=== PATIENT | female | born 1935 | race Caucasian/White ===

== ENCOUNTER 2016-10-01 21:16 | Emergency (ER) | payer OTHER, MEDICAID ==
[~2016-10-01] VITALS: Ht 147.3 cm; Wt 61.2 kg
[2016-10-01 21:46] LABS: MEAN CORPUSCULAR HEMOGLOBIN 31.5 pg (27.0-33.0); MEAN CORPUSCULAR HGB CONC 35.5 g/dl (32.0-36.5); MEAN CORPUSCULAR VOLUME 88.6 fl (80.0-96.0); RED CELL DISTRIBUTION WIDTH 12.3 % (11.5-14.5); WHITE BLOOD COUNT 7.8 K/mm3 (4.0-10.0)
[2016-10-01] MEDS ORDERED: ASPIRIN 81 MG CHEW TABLET As Ordered ONE (21:55)
[2016-10-01 22:00] LABS: INR 1.03
[2016-10-01 22:09] LABS: ANION GAP 9 MEQ/L (8-16); BLOOD UREA NITROGEN 14 MG/DL (7-18); CALCIUM LEVEL 9.7 MG/DL (8.8-10.2); CARBON DIOXIDE LEVEL 30 MEQ/L (21-32); CHLORIDE LEVEL 99 MEQ/L (98-107); CREATININE FOR GFR 0.86 MG/DL (0.55-1.02); GLOMERULAR FILTRATION RATE > 60.0 (>32); GLUCOSE, FASTING 125 MG/DL (83-110); POTASSIUM SERUM 3.1 MEQ/L (3.5-5.1); SODIUM LEVEL 138 MEQ/L (136-145)
[2016-10-01] MEDS ORDERED: ISOVUE-370 76% 100ML VIAL (Q9967) As Ordered ONE (22:28)
--- NOTE | 2016-10-01 23:00 | REPUSA ---
CT angiogram of the chest Clinical statement: Chest pain and shortness of breath. Technique: Multiple axial CT images were obtained from the thoracic inlet through the upper abdomen a fter a bolus administration of nonionic intravenous contrast. Coronal and sagittal reconstructions we re also obtained. No comparison is available. Findings: The pulmonary arteries are well-opacified with contrast, with no intraluminal filling defec ts to suggest embolism. The thoracic aorta demonstrates moderate atherosclerosis with calcified and s oft tissue plaque. There is no evidence of aneurysm or dissection. Thyroid gland is within normal epps its. There is no thoracic lymphadenopathy. There are no pericardial or pleural effusions. The lungs a re clear. Limited imaging of the upper abdomen is unremarkable. There are no suspicious osseous lesio ns. Impression: Unremarkable CT examination of the chest. No evidence of pulmonary embolism. No acute int rapulmonary disease.
[2016-10-02] MEDS ORDERED: KETOROLAC 30 MG/ML VIAL (J1885) As Ordered ONE (00:01)
--- NOTE | 2016-10-02 01:42 | REP ---
Clinical: Acute chest pain . Comparison: 07/02/2007 Findings: The mediastinum and cardiac silhouette are stable and within normal limits for portable technique. The lung garcia are clear without acute consolidation, effusion, or pneumothorax. Skeletal structures are intact. Impression: Normal portable chest x-ray Signed by Leonard Tapia MD 10/02/2016 01:34 A
[2016-10-02] MEDS ORDERED: METOPROLOL TART 25 MG TABLET As Ordered ONE (02:04)
[2016-10-02] MEDS ORDERED: NITROGLYCERIN 2% OINT 1 GM *U/D* PKT As Ordered ONE (03:05)
[2016-10-02] MEDS ORDERED: HEPARIN SOD (PORCINE) 5000 UNITS/ML VIAL As Ordered ONE (03:05)
[2016-10-02] MEDS ORDERED: HEPARIN 25,000 UNITS/250 ML D5W BAG (100 UNITS/ML) As Ordered ONE (03:06)
[2016-10-02] MEDS ORDERED: HYDR25TAB PO (03:34)
[2016-10-02] MEDS ORDERED: VIAC8.5C PO (03:34)
[2016-10-02] MEDS ORDERED: AMLO5TAB2 PO (03:34)
[2016-10-02] MEDS ORDERED: PRAV80TA2 PO (03:34)
[2016-10-02] MEDS ORDERED: ATEN25TA PO (03:34)
[2016-10-02] MEDS ORDERED: RANI150T PO (03:34)
[2016-10-02] MEDS ORDERED: SYNT75TA PO (03:34)
--- NOTE | 2016-10-02 04:37 | EDDOCDS ---
Nurse's Notes [facility] Name: Yi March Age: 81 yrs Sex: Female : 1935 Arrival Date: 10/01/2016 Time: 21:16 Bed 17 Private MD: Warren Enciso Diagnosis: Unstable angina Presentation: 10/01 21:22 Presenting complaint: Patient states: Left sided chest pain that radiates into left arm lf1 and shoulder with shortness of breath that started around 2000 this evening. Pt. states she was feeling ;well earlier but it suddenly got worse at 2000. Pain is described as "deep aching" and was 8/10. Pt. reports pain is lessened when she doesn't move. Pt. was tearful in intake area. Aspirin was not taken prior to arrival. Adult Sepsis Screening: The patient does not have new or worsening altered mentation. Patient's respiratory rate is less than 22. Systolic blood pressure is greater than 100. Patient has a qSOFA score of 0- Negative Sepsis Screen. Suicide/Homicide risk assessment- the patient denies having any suicidal and/or homicidal ideations and does not present with any other emotional, behavioral or mental health complaints. 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 Transition of care: patient was not received from another setting of care. 21:22 Acuity: FLORENCIO Level 2 lf1 21:22 Method Of Arrival: Walkin/Carried/Asstd lf1 Triage Assessment: 21:52 General: Appears in no apparent distress, comfortable, Behavior is appropriate for age, af2 cooperative. Pain: Location: chest Pain currently is 6 out of 10 on a pain scale. Cardiovascular: Chest pain is described as Pain is 6 out of 10 on a pain scale. radiates to left arm(s) episodes are continuous began 2 hours prior to arrival. Historical: - Allergies: No known drug Allergies; - Home Meds: 1. Synthroid 75 mcg Oral tab Unknown 2. atorvastatin 20 mg oral tab Unknown 3. calcium carbonate 500 mg calcium (1,250 mg) Oral tab Unknown 4. ranitidine HCl 75 mg Oral tab Unknown - PMHx: Hypercholesterolemia; Thyroid problem; GERD; - PSHx: Hysterectomy; - Social history: Smoking status: Patient states was never smoker of tobacco. No barriers to communication noted, The patient speaks fluent Tristanian. - Family history: Not pertinent. - : Unable to assess if pt is on anticoagulants. Unable to Verify Home Med List with the patient / caregiver. - Exposure Risk Screening:: None identified. Screenin:01 Screening information is obtained from the patient. Fall risk: No risks identified. af2 Assistance ADL's: requires no assistance with activities of daily living. Abuse/DV Screen: The patient / caregiver reports he/she is: not in a situation that causes fear, pain or injury. Nutritional screening: No deficits noted. Advance Directives: Further advance directive information is declined. home support is adequate. Assessment: 22:00 General: Appears in no apparent distress, Behavior is cooperative. Pain: Location: af2 chest Pain currently is 8 out of 10 on a pain scale. Neurological: Level of Consciousness is awake, alert. Cardiovascular: Heart tones S1 S2 present Rhythm is regular Chest pain began 2 hours prior to arrival. Respiratory: Airway is patent Respiratory effort is even, unlabored, Breath sounds are coarse bilaterally. Reports cough that is non-productive. Derm: Skin is normal. 23:00 General: Appears in no apparent distress, Behavior is cooperative. Cardiovascular: af2 Rhythm is sinus rhythm No ectopy. Respiratory: Airway is patent Respiratory effort is even, unlabored. Derm: Skin is normal. 10/02 00:00 General: Appears in no apparent distress, Behavior is cooperative. Neurological: Level af2 of Consciousness is awake, alert. Cardiovascular: Rhythm is sinus rhythm No ectopy. Respiratory: Airway is patent Respiratory effort is even, unlabored, Reports cough that is non-productive. Derm: Skin is normal. 01:00 General: Appears in no apparent distress, Behavior is cooperative. Neurological: Level af2 of Consciousness is awake, alert. Cardiovascular: Rhythm is sinus rhythm. Respiratory: Airway is patent Respiratory effort is even, unlabored. Derm: Skin is normal. 02:15 General: Appears in no apparent distress, Behavior is cooperative, pt with family at af2 bedside, updated regarding plan of care at this time. . Cardiovascular: Rhythm is sinus rhythm No ectopy. Respiratory: Airway is patent Respiratory effort is even, unlabored. Derm: Skin is normal. 03:10 General: Appears in no apparent distress, Behavior is cooperative, pt lying on af2 stretcher resting quietly with eyes closed, rr even and unlabored. offers no complaints at this time. will continue to monitor. . Cardiovascular: Rhythm is sinus rhythm Chest pain is denied. Respiratory: Airway is patent Respiratory effort is even, unlabored. Derm: Skin is normal. 04:21 General: Appears in no apparent distress, Behavior is appropriate for age, cooperative, af2 Report called to D5 RN at [facility] at this time. Pt and family aware of plan to transfer pt. Pt is currently chest pain free at this time.. Neurological: Level of Consciousness is awake, alert. Cardiovascular: Rhythm is sinus rhythm. Respiratory: Airway is patent Respiratory effort is even, unlabored. Derm: Skin is normal. 04:28 General: Appears in no apparent distress, Behavior is cooperative. Neurological: Level af2 of Consciousness is awake, alert. Cardiovascular: Rhythm is sinus rhythm Chest pain is denied. Respiratory: Airway is patent Respiratory effort is even, unlabored. Derm: Skin is normal. Vital Signs: 10/01 21:17 BP 172 / 91; Pulse 121; Resp 18; Temp 99.0(O); Pulse Ox 96% on R/A; Height 4 ft. 10 in. dem1 (147.32 cm); Pain 8/10; 21:42 BP 168 / 74 (auto/); af2 21:42 Pulse 102 MON; Resp 18 S; Pulse Ox 92% on 2 lpm NC; af2 21:57 BP 186 / 75 (auto/); af2 21:57 Pulse 106 MON; Resp 18 S; Pulse Ox 95% on 2 lpm NC; af2 22:12 BP 162 / 71 (auto/); af2 22:12 Pulse 108 MON; Pulse Ox 94% ; af2 22:27 BP 162 / 71 (auto/); af2 22:27 Pulse 104 MON; Pulse Ox 95% ; af2 22:42 BP 161 / 72 (auto/); af2 22:42 Pulse 100 MON; af2 02/07 01:35 BP 135 / 61 (auto/); af2 01:38 BP 135 / 61; Pulse 99; Resp 20; Pulse Ox 93% on R/A; Pain 0/10; raysa 01:38 Pulse 94 MON; Pulse Ox 93% ; af2 02:11 BP 161 / 64 (auto/); af2 02:12 Pulse 92 MON; Pulse Ox 92% ; af2 02:52 BP 168 / 80 (auto/); af2 02:53 Pulse 84 MON; Resp 18 S; Pulse Ox 94% on 2 lpm NC; af2 02:55 Weight 61.23 kg (M); mdr 04:35 BP 161 / 74 LA Sitting; Pulse 82; Resp 18 S; Temp 97.6(O); Pulse Ox 95% on 2 lpm NC; af2 Pain 0/10; 02:55 Body Mass Index 28.21 (61.23 kg, 147.32 cm) mdr Vitals: 10/01 21:17 Log In Time: October 01, 2016 at 21:15. RN notified that patient meets Red Flag dem1 criteria. ED Course: 21:16 Patient visited by Fidelia Johnson. dem1 21:16 Warren Enciso is Private Physician. dem1 21:16 Patient moved to Waiting dem1 21:20 Johanne Cosby RN is Primary Nurse. lf1 21:20 Patient moved to 17 lf1 21:22 Kuldeep Ford DO is Attending Physician. cs11 21:22 Patient visited by Kuldeep Ford DO. cs11 21:25 Triage Initiated lf1 21:35 EKG done. (by ED staff). Reviewed by Kuldeep Ford DO. mdr 21:36 Patient visited by Fuad Latham PCA. mdr 21:37 CBC Sent. af2 21:37 MED Profile Sent. af2 21:37 Cardiac Marker Panel Sent. af2 22:01 Inserted saline lock: 18 gauge in left antecubital area and blood collected. The af2 patient tolerated the procedure well. 22:03 Patient visited by Johanne Cosby RN. af2 23:22 Patient visited by Johanne Cosby RN. af2 23:34 CT Chest Angio R/O PE Returned. EDMS 0207 00:09 Patient visited by Johanne Cosby RN. af2 00:59 Patient visited by Johanne Cosby RN. af2 01:29 Patient visited by Keli Kern PCA. raysa 01:29 EKG done. (by ED staff). Reviewed by Kuldeep Ford DO. raysa 01:38 Patient visited by Keli Kern PCA. raysa 01:38 Labs drawn. (by ED staff). Sent per order to lab. raysa 01:38 CARDIAC MARKER PANEL Sent. raysa 02:05 [facility] [place] Payment Agreement was scanned into [employer] and attached to record. hs2 02:05 Chest, 1 View Returned. EDMS 02:13 Patient visited by Johanne Cosby RN. af2 02:18 Patient visited by Johanne Cosby RN. af2 02:55 Patient visited by Fuad Latham PCA. mdr 03:26 Patient visited by Johanne Cosby RN. af2 04:22 Inserted saline lock: 18 gauge in right antecubital area The patient tolerated the af2 procedure well. No procedures done that require assistance. 04:23 The patient / caregiver is instructed regarding the plan of care and ED course. Cardiac af2 monitor on. Pulse ox on. NIBP on. 04:29 Patient visited by Johanne Cosby RN. af2 Administered Medications: 10/01 22:00 Drug: Aspirin 324 mg [aspirin 81 mg chewable tablet (4 tabs)] Route: PO; af2 07 00:07 Drug: NS 0.9% 500 ml [sodium chloride 0.9 % intravenous solution] Route: IV; Rate: mv5 bolus; Site: left antecubital; 00:07 Drug: ketorolac 30 mg [ketorolac 30 mg/mL (1 mL) injection solution (1 mL)] Route: IVP; mv5 Site: left antecubital; 02:13 Drug: Metoprolol 25 mg [metoprolol tartrate 25 mg tablet (1 tabs)] Route: PO; af2 03:19 Drug: Nitro-Bid 0.5 inches [Nitro-Bid 2 % transdermal ointment (0.5 inches)] Route: af2 Transdermal; Site: left upper arm; 03:20 Drug: heparin (Thrombolytic Protocol, 60 units/kg)) 3600 units [heparin (porcine) 5,000 af2 unit/mL injection solution (0.72 mL)] {Co-Signature: nn1 (Modesta Love RN).} Route: IVP; Site: left antecubital; 03:22 Drug: heparin (Thrombolytic Protocol, 12 units/kg/hr)) 88012 units [heparin (porcine) af2 25,000 unit/250 mL (100 unit/mL) in dextrose 5 % IV] {Co-Signature: nn1 (Modesta Love RN).} Route: IV; Rate: 720 units/hr; Site: left antecubital; Order Results: Lab Order: CBC; SPEC'M 10/01/16 21:30 Test: WHITE BLOOD COUNT; Value: 7.8; Range: 4.0-10.0; Units: K/mm3; Status: F Test: RED BLOOD COUNT; Value: 4.91; Range: 4.00-5.40; Units: M/mm3; Status: F Test: HEMOGLOBIN; Value: 15.4; Range: 12.0-16.0; Units: g/dl; Status: F Test: HEMATOCRIT; Value: 43.5; Range: 36.0-47.0; Units: %; Status: F Test: MEAN CORPUSCULAR VOLUME; Value: 88.6; Range: 80.0-96.0; Units: fl; Status: F Test: MEAN CORPUSCULAR HEMOGLOBIN; Value: 31.5; Range: 27.0-33.0; Units: pg; Status: F Test: MEAN CORPUSCULAR HGB CONC; Value: 35.5; Range: 32.0-36.5; Units: g/dl; Status: F Test: RED CELL DISTRIBUTION WIDTH; Value: 12.3; Range: 11.5-14.5; Units: %; Status: F Test: PLATELET COUNT, AUTOMATED; Value: 252; Range: 150-450; Units: k/mm3; Status: F Lab Order: MED Profile; [facility] 10/01/16 21:30 Test: GLUCOSE, FASTING; Value: 125; Range: 83-110; Abnormal: Above high normal; Units: MG/DL; Status: F Test: BLOOD UREA NITROGEN; Value: 14; Range: 7-18; Units: MG/DL; Status: F Test: CREATININE FOR GFR; Value: 0.86; Range: 0.55-1.02; Units: MG/DL; Status: F Test: GLOMERULAR FILTRATION RATE; Value: > 60.0; Range: >32; Status: F Test: SODIUM LEVEL; Value: 138; Range: 136-145; Units: MEQ/L; Status: F Test: POTASSIUM SERUM; Value: 3.1; Range: 3.5-5.1; Abnormal: Below low normal; Units: MEQ/L; Status: F Test: CHLORIDE LEVEL; Value: 99; Range: 98-107; Units: MEQ/L; Status: F Test: CARBON DIOXIDE LEVEL; Value: 30; Range: 21-32; Units: MEQ/L; Status: F Test: ANION GAP; Value: 9; Range: 8-16; Units: MEQ/L; Status: F Test: CALCIUM LEVEL; Value: 9.7; Range: 8.8-10.2; Units: MG/DL; Status: F Test Note: ; Units are mL/min/1.73 m2 Chronic Kidney Disease Staging per NKF: Stage I & II GFR >=60 Normal to Mildly Decreased Stage III GFR 30-59 Moderately Decreased Stage IV GFR 15-29 Severely Decreased Stage V GFR <15 Very Little GFR Left ESRD GFR <15 on SCRAPE GATHERER Lab Order: Cardiac Marker Panel; SPEC10/01/16 21:30 Test: CPK CREATINE PHOSPHOKINASE; Value: 81; Range: 26-192; Units: U/L; Status: F Test: CK-MB VALUE MASS; Value: 1.0; Range: 0.0-3.6; Units: NG/ML; Status: F Test: MB/CK RELATIVE INDEX; Value: 1.23; Range: < OR =4; Status: F Test: TROPONIN I; Value: < 0.02; Range: < 0.10; Units: NG/ML; Status: F Test Note: ; DIAGNOSIS CRITERIA MMB ng/ml Relative Index (RI) NON-AMI < or = 5 N/A ESTRADA ZONE > 5 < or = 4 AMI > 5 > 4 Lab Order: Pt & Aptt; SPEC10/01/16 21:30 Test: PROTHROMBIN TIME; Value: 13.6; Range: 12.3-14.5; Units: SECONDS; Status: F Test: INR; Value: 1.03; Status: F Test: PARTIAL THROMBOPLASTIN TIME; Value: 30.5; Range: 26.6-37.1; Units: SECONDS; Status: F Test Note: ; THERAPUTIC HUMAN INR VALUES INDICATIONS NORMAL RANGES PROPHYLAXIS/TREATMENT OF: VENOUS THROMBOSIS 2.0-3.0 PULMONARY EMBOLISM 2.0-3.0 PREVENTION OF SYSTEMIC EMBOLISM FROM: TISSUE HEART VALVES 2.0-3.0 ACUTE MYOCARDIAL INFARCTION 2.0-3.0 VALVULAR HEART DISEASE 2.0-3.0 ATRIAL FIBRILLATION 2.0-3.0 MECHANICAL VALVES(HIGH RISK) 2.5-3.5 RECURRENT MYOCARDIAL INFARCTION 2.5-3.5 Lab Order: CARDIAC MARKER PANEL; SPEC'M 10/02/16 01:37 Test: CPK CREATINE PHOSPHOKINASE; Value: 84; Range: 26-192; Units: U/L; Status: F Test: CK-MB VALUE MASS; Value: 1.0; Range: 0.0-3.6; Units: NG/ML; Status: F Test: MB/CK RELATIVE INDEX; Value: 1.19; Range: < OR =4; Status: F Test: TROPONIN I; Value: 0.06; Range: < 0.10; Abnormal: Delta; Units: NG/ML; Status: F Test Note: ; DIAGNOSIS CRITERIA MMB ng/ml Relative Index (RI) NON-AMI < or = 5 N/A ESTRADA ZONE > 5 < or = 4 AMI > 5 > 4 Radiology Order: Chest, 1 View Test: Chest, 1 View REASON FOR EXAMINATION: Chest Pain; Clinical: Acute chest pain .; ; Comparison: 07/02/2007; ; Findings:; The mediastinum and cardiac silhouette are stable and within normal limits for; portable technique. The lung garcia are clear without acute consolidation,; effusion, or pneumothorax. Skeletal structures are intact.; ; Impression:; Normal portable chest x-ray; ; ; Signed by; Leonard Tapia MD 10/02/2016 01:34 A; Radiology Order: CT Chest Angio R/O PE Test: CT Chest Angio R/O PE REASON FOR EXAMINATION: Chest Pain; ; CT angiogram of the chest; Clinical statement: Chest pain and shortness of breath.; Technique: Multiple axial CT images were obtained from the thoracic inlet through the upper abdomen a; fter a bolus administration of nonionic intravenous contrast. Coronal and sagittal reconstructions we; re also obtained.; No comparison is available.; Findings: The pulmonary arteries are well-opacified with contrast, with no intraluminal filling defec; ts to suggest embolism. The thoracic aorta demonstrates moderate atherosclerosis with calcified and s; oft tissue plaque. There is no evidence of aneurysm or dissection. Thyroid gland is within normal epps; its. There is no thoracic lymphadenopathy. There are no pericardial or pleural effusions. The lungs a; re clear. Limited imaging of the upper abdomen is unremarkable. There are no suspicious osseous lesio; ns.; Impression: Unremarkable CT examination of the chest. No evidence of pulmonary embolism. No acute int; rapulmonary disease.; ; Outcome: 03:48 ER care complete, transfer ordered by Provider. cs11 04:23 Discharge Assessment: Patient awake, alert and oriented x 3. No cognitive and/or af2 functional deficits noted. Patient verbalized understanding of disposition instructions. patient administered narcotics - no. The following High Risk Discharge criteria are identified: None. Transferred to [facility]. by EMS ground [facility]. Transferred by EMS ground report to accompanying personnel Mary Randall- EMT- P and Francisco Hurst- EMT- B. Condition: stable. CT Study completed. Admission hand-off: Report called to Gayathri Miller RN. Property :Personal belongings accompany Pt. 04:36 Patient left the ED. af2 Signatures: Dispatcher [employer] EDMS Estephanie Garcia RN RN lf1 Keli Kern, [place] Fidelia Mello dem1 Kuldeep Ford, DO DO cs11 Johanne Cosby RN RN af2 Fuad Latham, [place] TER[place] mdr Shari Abrams, Reg Reg hs2 Mora Valdez RN RN mv5 Modesta Love RN nn1 MTDD
--- NOTE | 2016-10-02 04:37 | EDDOCDS ---
Physician Documentation [facility] Name: Yi March Age: 81 yrs Sex: Female : 1935 Arrival Date: 10/01/2016 Time: 21:16 Bed 17 Private MD: Warren Enciso Disposition: 10/02/16 03:48 Transfer ordered to [facility]. Diagnosis is Unstable angina. - Reason for transfer: Higher level of care. - Accepting physician is Dr Dailey. - Condition is Stable. - Problem is new. - Symptoms have improved. Historical: - Allergies: No known drug Allergies; - Home Meds: 1. Synthroid 75 mcg Oral tab Unknown 2. atorvastatin 20 mg oral tab Unknown 3. calcium carbonate 500 mg calcium (1,250 mg) Oral tab Unknown 4. ranitidine HCl 75 mg Oral tab Unknown - PMHx: Hypercholesterolemia; Thyroid problem; GERD; - PSHx: Hysterectomy; - Social history: Smoking status: Patient states was never smoker of tobacco. No barriers to communication noted, The patient speaks fluent Cymraes. - Family history: Not pertinent. - : Unable to assess if pt is on anticoagulants. Unable to Verify Home Med List with the patient / caregiver. - Exposure Risk Screening:: None identified. Vital Signs: 10/01 21:17 BP 172 / 91; Pulse 121; Resp 18; Temp 99.0(O); Pulse Ox 96% on R/A; Height 4 ft. 10 in. dem1 (147.32 cm); Pain 8/10; 21:42 BP 168 / 74 (auto/); af2 21:42 Pulse 102 MON; Resp 18 S; Pulse Ox 92% on 2 lpm NC; af2 21:57 BP 186 / 75 (auto/); af2 21:57 Pulse 106 MON; Resp 18 S; Pulse Ox 95% on 2 lpm NC; af2 22:12 BP 162 / 71 (auto/); af2 22:12 Pulse 108 MON; Pulse Ox 94% ; af2 22:27 BP 162 / 71 (auto/); af2 22:27 Pulse 104 MON; Pulse Ox 95% ; af2 22:42 BP 161 / 72 (auto/); af2 22:42 Pulse 100 MON; af2 10/02 01:35 BP 135 / 61 (auto/); af2 01:38 BP 135 / 61; Pulse 99; Resp 20; Pulse Ox 93% on R/A; Pain 0/10; raysa 01:38 Pulse 94 MON; Pulse Ox 93% ; af2 02:11 BP 161 / 64 (auto/); af2 02:12 Pulse 92 MON; Pulse Ox 92% ; af2 02:52 BP 168 / 80 (auto/); af2 02:53 Pulse 84 MON; Resp 18 S; Pulse Ox 94% on 2 lpm NC; af2 02:55 Weight 61.23 kg / 134.99 lbs (M); mdr 04:35 BP 161 / 74 LA Sitting; Pulse 82; Resp 18 S; Temp 97.6(O); Pulse Ox 95% on 2 lpm NC; af2 Pain 0/10; 02:55 Body Mass Index 28.21 (61.23 kg, 147.32 cm) mdr MDM: 10/01 21:22 ECG WITH READING ER PHYS+CARDIAG ordered. EDMS 21:31 IV Saline Lock ordered. cs11 21:31 Aspirin 324 mg PO once ordered. cs11 21:31 Oxygen 2L via NC, titrate to maintain PO >95% ordered. cs11 21:32 Chest, 1 View Ordered. EDMS 21:32 CBC Ordered. EDMS 21:32 MED Profile Ordered. EDMS 21:32 Cardiac Marker Panel Ordered. EDMS 21:32 Pt & Aptt Ordered. EDMS 22:12 MED Profile Reviewed. cs11 22:12 CBC Reviewed. cs11 22:12 Cardiac Marker Panel Reviewed. cs11 22:12 Pt & Aptt Reviewed. cs11 22:14 CT Chest Angio R/O PE Ordered. EDMS 23:43 CT Chest Angio R/O PE Reviewed. cs11 23:43 NS 0.9% 500 ml IV at bolus once ordered. cs11 23:43 ketorolac 30 mg IVP once ordered. cs11 23:44 Misc Principal Technologist Order ordered. cs11 23:[facility] Order complete. tmm1 23:58 CARDIAC MARKER PANEL Ordered. EDMS 23:59 ECG WITH READING ER PHYS ordered. EDMS 10/02 01:12 Financial registration complete. pm4 01:41 Metoprolol (Tartrate) 25 mg PO once ordered. cs11 02:05 [facility] [place] Agreement was scanned into [employer] and attached to record. hs2 02:40 CARDIAC MARKER PANEL Reviewed. cs11 02:40 Chest, 1 View Reviewed. cs11 02:45 Nitro-Bid Ointment 2 % 0.5 inches Transdermal once ordered. cs11 03:03 heparin (Thrombolytic Protocol, 60 units/kg)) 3600 units IVP once; max 4000 units. cs11 Ensure no Lovenox in past 18hr, labs drawn ordered. 03:03 heparin (Thrombolytic Protocol, 12 units/kg/hr)) 71835 units IV at 720 units/hr once; cs11 Max. dose 1000units/hr. No Lovenox past 18hrs/ draw labs. ordered. 03:05 BED REQUEST+ADM ordered. EDMS Administered Medications: 02 22:00 Drug: Aspirin 324 mg [aspirin 81 mg chewable tablet (4 tabs)] Route: PO; af2 0207 00:07 Drug: NS 0.9% 500 ml [sodium chloride 0.9 % intravenous solution] Route: IV; Rate: mv5 bolus; Site: left antecubital; 00:07 Drug: ketorolac 30 mg [ketorolac 30 mg/mL (1 mL) injection solution (1 mL)] Route: IVP; mv5 Site: left antecubital; 02:13 Drug: Metoprolol 25 mg [metoprolol tartrate 25 mg tablet (1 tabs)] Route: PO; af2 03:19 Drug: Nitro-Bid 0.5 inches [Nitro-Bid 2 % transdermal ointment (0.5 inches)] Route: af2 Transdermal; Site: left upper arm; 03:20 Drug: heparin (Thrombolytic Protocol, 60 units/kg)) 3600 units [heparin (porcine) 5,000 af2 unit/mL injection solution (0.72 mL)] {Co-Signature: nn1 (Modesta Love RN).} Route: IVP; Site: left antecubital; 03:22 Drug: heparin (Thrombolytic Protocol, 12 units/kg/hr)) 58563 units [heparin (porcine) af2 25,000 unit/250 mL (100 unit/mL) in dextrose 5 % IV] {Co-Signature: nn1 (Modesta Love RN).} Route: IV; Rate: 720 units/hr; Site: left antecubital; Signatures: Dispatcher [employer] EDMS Kuldeep Ford, DO cs11 McLear, Alison, HORTICULTURAL TECHNICAL OFFICER HORTICULTURAL TECHNICAL OFFICER tmm1 Johanne Cosby,RN RN af2 Shari Abrams, Reg Reg hs2 Thomas Rivera, Reg Reg pm4 Mora Valdez RN mv5 Modesta Love RN nn1 The chart was reviewed and I authenticate all verbal orders and agree with the evaluation and treatment provided.Attachments: 02:05 [facility] Payment Agreement hs2 MTDD
--- NOTE | 2016-10-03 17:36 | ECGEPIP ---
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
--- NOTE | 2016-10-03 17:38 | ECGEPIP ---
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
--- NOTE | 2016-10-04 05:37 | EDDOCDS ---
Physician Documentation [facility] Name: Yi March Age: 81 yrs Sex: Female : 1935 Arrival Date: 10/01/2016 Time: 21:16 Bed 17 Private MD: Warren Enciso Disposition: 10/02/16 03:48 Transfer ordered to [facility]. Diagnosis is Unstable angina. - Reason for transfer: Higher level of care. - Accepting physician is Dr Dailey. - Condition is Stable. - Problem is new. - Symptoms have improved. Historical: - Allergies: No known drug Allergies; - Home Meds: 1. Synthroid 75 mcg Oral tab Unknown 2. atorvastatin 20 mg oral tab Unknown 3. calcium carbonate 500 mg calcium (1,250 mg) Oral tab Unknown 4. ranitidine HCl 75 mg Oral tab Unknown - PMHx: Hypercholesterolemia; Thyroid problem; GERD; - PSHx: Hysterectomy; - Social history: Smoking status: Patient states was never smoker of tobacco. No barriers to communication noted, The patient speaks fluent Icelandic. - Family history: Not pertinent. - : Unable to assess if pt is on anticoagulants. Unable to Verify Home Med List with the patient / caregiver. - Exposure Risk Screening:: None identified. Vital Signs: 10/01 21:17 BP 172 / 91; Pulse 121; Resp 18; Temp 99.0(O); Pulse Ox 96% on R/A; Height 4 ft. 10 in. dem1 (147.32 cm); Pain 8/10; 21:42 BP 168 / 74 (auto/); af2 21:42 Pulse 102 MON; Resp 18 S; Pulse Ox 92% on 2 lpm NC; af2 21:57 BP 186 / 75 (auto/); af2 21:57 Pulse 106 MON; Resp 18 S; Pulse Ox 95% on 2 lpm NC; af2 22:12 BP 162 / 71 (auto/); af2 22:12 Pulse 108 MON; Pulse Ox 94% ; af2 22:27 BP 162 / 71 (auto/); af2 22:27 Pulse 104 MON; Pulse Ox 95% ; af2 22:42 BP 161 / 72 (auto/); af2 22:42 Pulse 100 MON; af2 10/02 01:35 BP 135 / 61 (auto/); af2 01:38 BP 135 / 61; Pulse 99; Resp 20; Pulse Ox 93% on R/A; Pain 0/10; raysa 01:38 Pulse 94 MON; Pulse Ox 93% ; af2 02:11 BP 161 / 64 (auto/); af2 02:12 Pulse 92 MON; Pulse Ox 92% ; af2 02:52 BP 168 / 80 (auto/); af2 02:53 Pulse 84 MON; Resp 18 S; Pulse Ox 94% on 2 lpm NC; af2 02:55 Weight 61.23 kg / 134.99 lbs (M); mdr 04:35 BP 161 / 74 LA Sitting; Pulse 82; Resp 18 S; Temp 97.6(O); Pulse Ox 95% on 2 lpm NC; af2 Pain 0/10; 02:55 Body Mass Index 28.21 (61.23 kg, 147.32 cm) mdr MDM: 10/01 21:22 ECG WITH READING ER PHYS+CARDIAG ordered. EDMS 21:31 IV Saline Lock ordered. cs11 21:31 Aspirin 324 mg PO once ordered. cs11 21:31 Oxygen 2L via NC, titrate to maintain PO >95% ordered. cs11 21:32 Chest, 1 View Ordered. EDMS 21:32 CBC Ordered. EDMS 21:32 MED Profile Ordered. EDMS 21:32 Cardiac Marker Panel Ordered. EDMS 21:32 Pt & Aptt Ordered. EDMS 22:12 MED Profile Reviewed. cs11 22:12 CBC Reviewed. cs11 22:12 Cardiac Marker Panel Reviewed. cs11 22:12 Pt & Aptt Reviewed. cs11 22:14 CT Chest Angio R/O PE Ordered. EDMS 23:43 CT Chest Angio R/O PE Reviewed. cs11 23:43 NS 0.9% 500 ml IV at bolus once ordered. cs11 23:43 ketorolac 30 mg IVP once ordered. cs11 23:44 Misc Shop Fitter Order ordered. cs11 23:57 [facility] Shop Fitter Order complete. tmm1 23:58 CARDIAC MARKER PANEL Ordered. EDMS 23:59 ECG WITH READING ER PHYS ordered. EDMS 10/02 01:12 Financial registration complete. pm4 01:41 Metoprolol (Tartrate) 25 mg PO once ordered. cs11 02:05 [facility] [place] was scanned into [employer] and attached to record. hs2 02:40 CARDIAC MARKER PANEL Reviewed. cs11 02:40 Chest, 1 View Reviewed. cs11 02:45 Nitro-Bid Ointment 2 % 0.5 inches Transdermal once ordered. cs11 03:03 heparin (Thrombolytic Protocol, 60 units/kg)) 3600 units IVP once; max 4000 units. cs11 Ensure no Lovenox in past 18hr, labs drawn ordered. 03:03 heparin (Thrombolytic Protocol, 12 units/kg/hr)) 68018 units IV at 720 units/hr once; cs11 Max. dose 1000units/hr. No Lovenox past 18hrs/ draw labs. ordered. 03:05 BED REQUEST+ADM ordered. EDMS 11:07 T-Sheet-- Draft Copy was scanned into [employer] and attached to record. gb 11:08 ECG/EKG was scanned into [employer] and attached to record. gb Administered Medications: 02 22:00 Drug: Aspirin 324 mg [aspirin 81 mg chewable tablet (4 tabs)] Route: PO; af2 10/02 00:07 Drug: NS 0.9% 500 ml [sodium chloride 0.9 % intravenous solution] Route: IV; Rate: mv5 bolus; Site: left antecubital; 00:07 Drug: ketorolac 30 mg [ketorolac 30 mg/mL (1 mL) injection solution (1 mL)] Route: IVP; mv5 Site: left antecubital; 02:13 Drug: Metoprolol 25 mg [metoprolol tartrate 25 mg tablet (1 tabs)] Route: PO; af2 03:19 Drug: Nitro-Bid 0.5 inches [Nitro-Bid 2 % transdermal ointment (0.5 inches)] Route: af2 Transdermal; Site: left upper arm; 03:20 Drug: heparin (Thrombolytic Protocol, 60 units/kg)) 3600 units [heparin (porcine) 5,000 af2 unit/mL injection solution (0.72 mL)] {Co-Signature: nn1 (Modesta Love RN).} Route: IVP; Site: left antecubital; 03:22 Drug: heparin (Thrombolytic Protocol, 12 units/kg/hr)) 41461 units [heparin (porcine) af2 25,000 unit/250 mL (100 unit/mL) in dextrose 5 % IV] {Co-Signature: nn1 (Modesta Love RN).} Route: IV; Rate: 720 units/hr; Site: left antecubital; Signatures: Dispatcher [employer] Huyen Hale, Reg Reg gb Kuldeep Ford, DO DO cs11 McLear, Alison, DOOR MAKER DOOR MAKER tmm1 Johanne Cosby,RN RN af2 Shari Abrams, Reg Reg hs2 Thomas Rivera, Reg Reg pm4 Mora Valdez RN mv5 Modesta Love RN nn1 The chart was reviewed and I authenticate all verbal orders and agree with the evaluation and treatment provided.Attachments: 02:05 [facility] Payment Agreement hs2 11:07 T-Sheet-- Draft Copy gb 11:08 ECG/EKG gb Chart Complete MTDD
--- NOTE | 2016-10-04 05:37 | EDDOCDS ---
Physician Documentation [facility] Name: Yi March Age: 81 yrs Sex: Female : 1935 Arrival Date: 10/01/2016 Time: 21:16 Bed 17 Private MD: Warren Enciso Disposition: 10/02/16 03:48 Transfer ordered to [facility]. Diagnosis is Unstable angina. - Reason for transfer: Higher level of care. - Accepting physician is Dr Dailey. - Condition is Stable. - Problem is new. - Symptoms have improved. Historical: - Allergies: No known drug Allergies; - Home Meds: 1. Synthroid 75 mcg Oral tab Unknown 2. atorvastatin 20 mg oral tab Unknown 3. calcium carbonate 500 mg calcium (1,250 mg) Oral tab Unknown 4. ranitidine HCl 75 mg Oral tab Unknown - PMHx: Hypercholesterolemia; Thyroid problem; GERD; - PSHx: Hysterectomy; - Social history: Smoking status: Patient states was never smoker of tobacco. No barriers to communication noted, The patient speaks fluent Sudanese. - Family history: Not pertinent. - : Unable to assess if pt is on anticoagulants. Unable to Verify Home Med List with the patient / caregiver. - Exposure Risk Screening:: None identified. Vital Signs: 10/01 21:17 BP 172 / 91; Pulse 121; Resp 18; Temp 99.0(O); Pulse Ox 96% on R/A; Height 4 ft. 10 in. dem1 (147.32 cm); Pain 8/10; 21:42 BP 168 / 74 (auto/); af2 21:42 Pulse 102 MON; Resp 18 S; Pulse Ox 92% on 2 lpm NC; af2 21:57 BP 186 / 75 (auto/); af2 21:57 Pulse 106 MON; Resp 18 S; Pulse Ox 95% on 2 lpm NC; af2 22:12 BP 162 / 71 (auto/); af2 22:12 Pulse 108 MON; Pulse Ox 94% ; af2 22:27 BP 162 / 71 (auto/); af2 22:27 Pulse 104 MON; Pulse Ox 95% ; af2 22:42 BP 161 / 72 (auto/); af2 22:42 Pulse 100 MON; af2 10/02 01:35 BP 135 / 61 (auto/); af2 01:38 BP 135 / 61; Pulse 99; Resp 20; Pulse Ox 93% on R/A; Pain 0/10; raysa 01:38 Pulse 94 MON; Pulse Ox 93% ; af2 02:11 BP 161 / 64 (auto/); af2 02:12 Pulse 92 MON; Pulse Ox 92% ; af2 02:52 BP 168 / 80 (auto/); af2 02:53 Pulse 84 MON; Resp 18 S; Pulse Ox 94% on 2 lpm NC; af2 02:55 Weight 61.23 kg / 134.99 lbs (M); mdr 04:35 BP 161 / 74 LA Sitting; Pulse 82; Resp 18 S; Temp 97.6(O); Pulse Ox 95% on 2 lpm NC; af2 Pain 0/10; 02:55 Body Mass Index 28.21 (61.23 kg, 147.32 cm) mdr MDM: 10/01 21:22 ECG WITH READING ER PHYS+CARDIAG ordered. EDMS 21:31 IV Saline Lock ordered. cs11 21:31 Aspirin 324 mg PO once ordered. cs11 21:31 Oxygen 2L via NC, titrate to maintain PO >95% ordered. cs11 21:32 Chest, 1 View Ordered. EDMS 21:32 CBC Ordered. EDMS 21:32 MED Profile Ordered. EDMS 21:32 Cardiac Marker Panel Ordered. EDMS 21:32 Pt & Aptt Ordered. EDMS 22:12 MED Profile Reviewed. cs11 22:12 CBC Reviewed. cs11 22:12 Cardiac Marker Panel Reviewed. cs11 22:12 Pt & Aptt Reviewed. cs11 22:14 CT Chest Angio R/O PE Ordered. EDMS 23:43 CT Chest Angio R/O PE Reviewed. cs11 23:43 NS 0.9% 500 ml IV at bolus once ordered. cs11 23:43 ketorolac 30 mg IVP once ordered. cs11 23:44 Misc Editor [employer] Order ordered. cs11 23:57 [facility] Editor [employer] Order complete. tmm1 23:58 CARDIAC MARKER PANEL Ordered. EDMS 23:59 ECG WITH READING ER PHYS ordered. EDMS 10/02 01:12 Financial registration complete. pm4 01:41 Metoprolol (Tartrate) 25 mg PO once ordered. cs11 02:05 [facility] [place] Agreement was scanned into [employer] and attached to record. hs2 02:40 CARDIAC MARKER PANEL Reviewed. cs11 02:40 Chest, 1 View Reviewed. cs11 02:45 Nitro-Bid Ointment 2 % 0.5 inches Transdermal once ordered. cs11 03:03 heparin (Thrombolytic Protocol, 60 units/kg)) 3600 units IVP once; max 4000 units. cs11 Ensure no Lovenox in past 18hr, labs drawn ordered. 03:03 heparin (Thrombolytic Protocol, 12 units/kg/hr)) 91843 units IV at 720 units/hr once; cs11 Max. dose 1000units/hr. No Lovenox past 18hrs/ draw labs. ordered. 03:05 BED REQUEST+ADM ordered. EDMS 11:07 T-Sheet-- Draft Copy was scanned into [employer] and attached to record. gb 11:08 ECG/EKG was scanned into [employer] and attached to record. gb Administered Medications: 02 22:00 Drug: Aspirin 324 mg [aspirin 81 mg chewable tablet (4 tabs)] Route: PO; af2 10/02 00:07 Drug: NS 0.9% 500 ml [sodium chloride 0.9 % intravenous solution] Route: IV; Rate: mv5 bolus; Site: left antecubital; 00:07 Drug: ketorolac 30 mg [ketorolac 30 mg/mL (1 mL) injection solution (1 mL)] Route: IVP; mv5 Site: left antecubital; 02:13 Drug: Metoprolol 25 mg [metoprolol tartrate 25 mg tablet (1 tabs)] Route: PO; af2 03:19 Drug: Nitro-Bid 0.5 inches [Nitro-Bid 2 % transdermal ointment (0.5 inches)] Route: af2 Transdermal; Site: left upper arm; 03:20 Drug: heparin (Thrombolytic Protocol, 60 units/kg)) 3600 units [heparin (porcine) 5,000 af2 unit/mL injection solution (0.72 mL)] {Co-Signature: nn1 (Modesta Love RN).} Route: IVP; Site: left antecubital; 03:22 Drug: heparin (Thrombolytic Protocol, 12 units/kg/hr)) 84792 units [heparin (porcine) af2 25,000 unit/250 mL (100 unit/mL) in dextrose 5 % IV] {Co-Signature: nn1 (Modesta Love RN).} Route: IV; Rate: 720 units/hr; Site: left antecubital; Signatures: Dispatcher [employer] Huyen Hale, Reg Reg gb Kuldeep Ford, DO DO cs11 McLear, Alison, TAPER AND FLOATER TAPER AND FLOATER tmm1 Johanne Cosby,RN RN af2 Shrai Abrams, Reg Reg hs2 Thomas Rivera, Reg Reg pm4 Mora Valdez RN mv5 Modesta Love RN nn1 The chart was reviewed and I authenticate all verbal orders and agree with the evaluation and treatment provided.Attachments: 02:05 [facility] Payment Agreement hs2 11:07 T-Sheet-- Draft Copy gb 11:08 ECG/EKG gb Chart Complete MTDD
--- NOTE | 2016-10-04 05:37 | EDDOCDS ---
Nurse's Notes [facility] Name: Geneva Bennett Age: 81 yrs Sex: Female : 1935 Arrival Date: 10/01/2016 Time: 21:16 Bed 17 Private MD: Warren Enciso Diagnosis: Unstable angina Presentation: 10/01 21:22 Presenting complaint: Patient states: Left sided chest pain that radiates into left arm lf1 and shoulder with shortness of breath that started around 2000 this evening. Pt. states she was feeling ;well earlier but it suddenly got worse at 2000. Pain is described as "deep aching" and was 8/10. Pt. reports pain is lessened when she doesn't move. Pt. was tearful in intake area. Aspirin was not taken prior to arrival. Adult Sepsis Screening: The patient does not have new or worsening altered mentation. Patient's respiratory rate is less than 22. Systolic blood pressure is greater than 100. Patient has a qSOFA score of 0- Negative Sepsis Screen. Suicide/Homicide risk assessment- the patient denies having any suicidal and/or homicidal ideations and does not present with any other emotional, behavioral or mental health complaints. 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 Transition of care: patient was not received from another setting of care. 21:22 Acuity: FLORENCIO Level 2 lf1 21:22 Method Of Arrival: Walkin/Carried/Asstd lf1 Triage Assessment: 21:52 General: Appears in no apparent distress, comfortable, Behavior is appropriate for age, af2 cooperative. Pain: Location: chest Pain currently is 6 out of 10 on a pain scale. Cardiovascular: Chest pain is described as Pain is 6 out of 10 on a pain scale. radiates to left arm(s) episodes are continuous began 2 hours prior to arrival. Historical: - Allergies: No known drug Allergies; - Home Meds: 1. Synthroid 75 mcg Oral tab Unknown 2. atorvastatin 20 mg oral tab Unknown 3. calcium carbonate 500 mg calcium (1,250 mg) Oral tab Unknown 4. ranitidine HCl 75 mg Oral tab Unknown - PMHx: Hypercholesterolemia; Thyroid problem; GERD; - PSHx: Hysterectomy; - Social history: Smoking status: Patient states was never smoker of tobacco. No barriers to communication noted, The patient speaks fluent Turkmen. - Family history: Not pertinent. - : Unable to assess if pt is on anticoagulants. Unable to Verify Home Med List with the patient / caregiver. - Exposure Risk Screening:: None identified. Screenin:01 Screening information is obtained from the patient. Fall risk: No risks identified. af2 Assistance ADL's: requires no assistance with activities of daily living. Abuse/DV Screen: The patient / caregiver reports he/she is: not in a situation that causes fear, pain or injury. Nutritional screening: No deficits noted. Advance Directives: Further advance directive information is declined. home support is adequate. Assessment: 22:00 General: Appears in no apparent distress, Behavior is cooperative. Pain: Location: af2 chest Pain currently is 8 out of 10 on a pain scale. Neurological: Level of Consciousness is awake, alert. Cardiovascular: Heart tones S1 S2 present Rhythm is regular Chest pain began 2 hours prior to arrival. Respiratory: Airway is patent Respiratory effort is even, unlabored, Breath sounds are coarse bilaterally. Reports cough that is non-productive. Derm: Skin is normal. 23:00 General: Appears in no apparent distress, Behavior is cooperative. Cardiovascular: af2 Rhythm is sinus rhythm No ectopy. Respiratory: Airway is patent Respiratory effort is even, unlabored. Derm: Skin is normal. 10/02 00:00 General: Appears in no apparent distress, Behavior is cooperative. Neurological: Level af2 of Consciousness is awake, alert. Cardiovascular: Rhythm is sinus rhythm No ectopy. Respiratory: Airway is patent Respiratory effort is even, unlabored, Reports cough that is non-productive. Derm: Skin is normal. 01:00 General: Appears in no apparent distress, Behavior is cooperative. Neurological: Level af2 of Consciousness is awake, alert. Cardiovascular: Rhythm is sinus rhythm. Respiratory: Airway is patent Respiratory effort is even, unlabored. Derm: Skin is normal. 02:15 General: Appears in no apparent distress, Behavior is cooperative, pt with family at af2 bedside, updated regarding plan of care at this time. . Cardiovascular: Rhythm is sinus rhythm No ectopy. Respiratory: Airway is patent Respiratory effort is even, unlabored. Derm: Skin is normal. 03:10 General: Appears in no apparent distress, Behavior is cooperative, pt lying on af2 stretcher resting quietly with eyes closed, rr even and unlabored. offers no complaints at this time. will continue to monitor. . Cardiovascular: Rhythm is sinus rhythm Chest pain is denied. Respiratory: Airway is patent Respiratory effort is even, unlabored. Derm: Skin is normal. 04:21 General: Appears in no apparent distress, Behavior is appropriate for age, cooperative, af2 Report called to D5 RN at [facility] at this time. Pt and family aware of plan to transfer pt. Pt is currently chest pain free at this time.. Neurological: Level of Consciousness is awake, alert. Cardiovascular: Rhythm is sinus rhythm. Respiratory: Airway is patent Respiratory effort is even, unlabored. Derm: Skin is normal. 04:28 General: Appears in no apparent distress, Behavior is cooperative. Neurological: Level af2 of Consciousness is awake, alert. Cardiovascular: Rhythm is sinus rhythm Chest pain is denied. Respiratory: Airway is patent Respiratory effort is even, unlabored. Derm: Skin is normal. Vital Signs: 10/01 21:17 BP 172 / 91; Pulse 121; Resp 18; Temp 99.0(O); Pulse Ox 96% on R/A; Height 4 ft. 10 in. dem1 (147.32 cm); Pain 8/10; 21:42 BP 168 / 74 (auto/); af2 21:42 Pulse 102 MON; Resp 18 S; Pulse Ox 92% on 2 lpm NC; af2 21:57 BP 186 / 75 (auto/); af2 21:57 Pulse 106 MON; Resp 18 S; Pulse Ox 95% on 2 lpm NC; af2 22:12 BP 162 / 71 (auto/); af2 22:12 Pulse 108 MON; Pulse Ox 94% ; af2 22:27 BP 162 / 71 (auto/); af2 22:27 Pulse 104 MON; Pulse Ox 95% ; af2 22:42 BP 161 / 72 (auto/); af2 22:42 Pulse 100 MON; af2 02/07 01:35 BP 135 / 61 (auto/); af2 01:38 BP 135 / 61; Pulse 99; Resp 20; Pulse Ox 93% on R/A; Pain 0/10; raysa 01:38 Pulse 94 MON; Pulse Ox 93% ; af2 02:11 BP 161 / 64 (auto/); af2 02:12 Pulse 92 MON; Pulse Ox 92% ; af2 02:52 BP 168 / 80 (auto/); af2 02:53 Pulse 84 MON; Resp 18 S; Pulse Ox 94% on 2 lpm NC; af2 02:55 Weight 61.23 kg (M); mdr 04:35 BP 161 / 74 LA Sitting; Pulse 82; Resp 18 S; Temp 97.6(O); Pulse Ox 95% on 2 lpm NC; af2 Pain 0/10; 02:55 Body Mass Index 28.21 (61.23 kg, 147.32 cm) mdr Vitals: 10/01 21:17 Log In Time: October 01, 2016 at 21:15. RN notified that patient meets Red Flag dem1 criteria. ED Course: 21:16 Patient visited by Fidelia Johnson. dem1 21:16 Warren Enciso is Private Physician. dem1 21:16 Patient moved to Waiting dem1 21:20 Johanne Cosby RN is Primary Nurse. lf1 21:20 Patient moved to 17 lf1 21:22 Gaby Nolasco DO is Attending Physician. cs11 21:22 Patient visited by Gaby Nolasco DO. cs11 21:25 Triage Initiated lf1 21:35 EKG done. (by ED staff). Reviewed by Gaby Nolasco DO. mdr 21:36 Patient visited by Fuad Latham PCA. mdr 21:37 CBC Sent. af2 21:37 MED Profile Sent. af2 21:37 Cardiac Marker Panel Sent. af2 22:01 Inserted saline lock: 18 gauge in left antecubital area and blood collected. The af2 patient tolerated the procedure well. 22:03 Patient visited by Johanne Cosby RN. af2 23:22 Patient visited by Johanne Cosby RN. af2 23:34 CT Chest Angio R/O PE Returned. EDMS 0207 00:09 Patient visited by Johanne Cosby RN. af2 00:59 Patient visited by Johanne Cosby RN. af2 01:29 Patient visited by Keli Kern PCA. raysa 01:29 EKG done. (by ED staff). Reviewed by Gaby Nolasco DO. raysa 01:38 Patient visited by Keli Kern PCA. raysa 01:38 Labs drawn. (by ED staff). Sent per order to lab. raysa 01:38 CARDIAC MARKER PANEL Sent. raysa 02:05 [facility] Payment Agreement was scanned into [employer] and attached to record. hs2 02:05 Chest, 1 View Returned. EDMS 02:13 Patient visited by Johanne Cosby RN. af2 02:18 Patient visited by Johanne Cosby RN. af2 02:55 Patient visited by Fuad Latham PCA. mdr 03:26 Patient visited by Johanne Cosby RN. af2 04:22 Inserted saline lock: 18 gauge in right antecubital area The patient tolerated the af2 procedure well. No procedures done that require assistance. 04:23 The patient / caregiver is instructed regarding the plan of care and ED course. Cardiac af2 monitor on. Pulse ox on. NIBP on. 04:29 Patient visited by Johanne Cosby RN. af2 11:07 T-Sheet-- Draft Copy was scanned into [employer] and attached to record. gb 11:08 ECG/EKG was scanned into [employer] and attached to record. gb 02 18:15 EKG-ADULT Returned. EDMS 18:15 ECG WITH READING ER PHYS Returned. EDMS Administered Medications: 10/01 22:00 Drug: Aspirin 324 mg [aspirin 81 mg chewable tablet (4 tabs)] Route: PO; af2 0207 00:07 Drug: NS 0.9% 500 ml [sodium chloride 0.9 % intravenous solution] Route: IV; Rate: mv5 bolus; Site: left antecubital; 00:07 Drug: ketorolac 30 mg [ketorolac 30 mg/mL (1 mL) injection solution (1 mL)] Route: IVP; mv5 Site: left antecubital; 02:13 Drug: Metoprolol 25 mg [metoprolol tartrate 25 mg tablet (1 tabs)] Route: PO; af2 03:19 Drug: Nitro-Bid 0.5 inches [Nitro-Bid 2 % transdermal ointment (0.5 inches)] Route: af2 Transdermal; Site: left upper arm; 03:20 Drug: heparin (Thrombolytic Protocol, 60 units/kg)) 3600 units [heparin (porcine) 5,000 af2 unit/mL injection solution (0.72 mL)] {Co-Signature: nn1 (Modesta Love RN).} Route: IVP; Site: left antecubital; 03:22 Drug: heparin (Thrombolytic Protocol, 12 units/kg/hr)) 56905 units [heparin (porcine) af2 25,000 unit/250 mL (100 unit/mL) in dextrose 5 % IV] {Co-Signature: nn1 (Modesta Love RN).} Route: IV; Rate: 720 units/hr; Site: left antecubital; Order Results: Lab Order: CBC; [facility] 10/01/16 21:30 Test: WHITE BLOOD COUNT; Value: 7.8; Range: 4.0-10.0; Units: K/mm3; Status: F Test: RED BLOOD COUNT; Value: 4.91; Range: 4.00-5.40; Units: M/mm3; Status: F Test: HEMOGLOBIN; Value: 15.4; Range: 12.0-16.0; Units: g/dl; Status: F Test: HEMATOCRIT; Value: 43.5; Range: 36.0-47.0; Units: %; Status: F Test: MEAN CORPUSCULAR VOLUME; Value: 88.6; Range: 80.0-96.0; Units: fl; Status: F Test: MEAN CORPUSCULAR HEMOGLOBIN; Value: 31.5; Range: 27.0-33.0; Units: pg; Status: F Test: MEAN CORPUSCULAR HGB CONC; Value: 35.5; Range: 32.0-36.5; Units: g/dl; Status: F Test: RED CELL DISTRIBUTION WIDTH; Value: 12.3; Range: 11.5-14.5; Units: %; Status: F Test: PLATELET COUNT, AUTOMATED; Value: 252; Range: 150-450; Units: k/mm3; Status: F Lab Order: MED Profile; [facility] 10/01/16 21:30 Test: GLUCOSE, FASTING; Value: 125; Range: 83-110; Abnormal: Above high normal; Units: MG/DL; Status: F Test: BLOOD UREA NITROGEN; Value: 14; Range: 7-18; Units: MG/DL; Status: F Test: CREATININE FOR GFR; Value: 0.86; Range: 0.55-1.02; Units: MG/DL; Status: F Test: GLOMERULAR FILTRATION RATE; Value: > 60.0; Range: >32; Status: F Test: SODIUM LEVEL; Value: 138; Range: 136-145; Units: MEQ/L; Status: F Test: POTASSIUM SERUM; Value: 3.1; Range: 3.5-5.1; Abnormal: Below low normal; Units: MEQ/L; Status: F Test: CHLORIDE LEVEL; Value: 99; Range: 98-107; Units: MEQ/L; Status: F Test: CARBON DIOXIDE LEVEL; Value: 30; Range: 21-32; Units: MEQ/L; Status: F Test: ANION GAP; Value: 9; Range: 8-16; Units: MEQ/L; Status: F Test: CALCIUM LEVEL; Value: 9.7; Range: 8.8-10.2; Units: MG/DL; Status: F Test Note: ; Units are mL/min/1.73 m2 Chronic Kidney Disease Staging per NKF: Stage I & II GFR >=60 Normal to Mildly Decreased Stage III GFR 30-59 Moderately Decreased Stage IV GFR 15-29 Severely Decreased Stage V GFR <15 Very Little GFR Left ESRD GFR <15 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 Lab Order: Cardiac Marker Panel; SPEC'10/01/16 21:30 Test: CPK CREATINE PHOSPHOKINASE; Value: 81; Range: 26-192; Units: U/L; Status: F Test: CK-MB VALUE MASS; Value: 1.0; Range: 0.0-3.6; Units: NG/ML; Status: F Test: MB/CK RELATIVE INDEX; Value: 1.23; Range: < OR =4; Status: F Test: TROPONIN I; Value: < 0.02; Range: < 0.10; Units: NG/ML; Status: F Test Note: ; DIAGNOSIS CRITERIA MMB ng/ml Relative Index (RI) NON-AMI < or = 5 N/A ESTRADA ZONE > 5 < or = 4 AMI > 5 > 4 Lab Order: Pt & Aptt; SPEC'10/01/16 21:30 Test: PROTHROMBIN TIME; Value: 13.6; Range: 12.3-14.5; Units: SECONDS; Status: F Test: INR; Value: 1.03; Status: F Test: PARTIAL THROMBOPLASTIN TIME; Value: 30.5; Range: 26.6-37.1; Units: SECONDS; Status: F Test Note: ; THERAPUTIC HUMAN INR VALUES INDICATIONS NORMAL RANGES PROPHYLAXIS/TREATMENT OF: VENOUS THROMBOSIS 2.0-3.0 PULMONARY EMBOLISM 2.0-3.0 PREVENTION OF SYSTEMIC EMBOLISM FROM: TISSUE HEART VALVES 2.0-3.0 ACUTE MYOCARDIAL INFARCTION 2.0-3.0 VALVULAR HEART DISEASE 2.0-3.0 ATRIAL FIBRILLATION 2.0-3.0 MECHANICAL VALVES(HIGH RISK) 2.5-3.5 RECURRENT MYOCARDIAL INFARCTION 2.5-3.5 Lab Order: CARDIAC MARKER PANEL; SPEC'M 10/02/16 01:37 Test: CPK CREATINE PHOSPHOKINASE; Value: 84; Range: 26-192; Units: U/L; Status: F Test: CK-MB VALUE MASS; Value: 1.0; Range: 0.0-3.6; Units: NG/ML; Status: F Test: MB/CK RELATIVE INDEX; Value: 1.19; Range: < OR =4; Status: F Test: TROPONIN I; Value: 0.06; Range: < 0.10; Abnormal: Delta; Units: NG/ML; Status: F Test Note: ; DIAGNOSIS CRITERIA MMB ng/ml Relative Index (RI) NON-AMI < or = 5 N/A ESTRADA ZONE > 5 < or = 4 AMI > 5 > 4 Radiology Order: EKG-ADULT Test: EKG-ADULT REASON FOR EXAMINATION: Chest Pain; Stationary ECG Study; [facility] - ED; ; Test Date: 2016-10-01; Pat Name: GENEVA BENNETT Department:; Room: -; 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: ; : 1935 Requested By: ELLE Zelaya; Order Number: [id number] Reading MD: Luana Warren; Measurements; Intervals [place]; Rate: 107 P: 25; GA: 162 QRS: -29; QRSD: 89 T: 18; QT: 355; QTc: 476; Interpretive Statements; SINUS TACHYCARDIA; MINIMAL VOLTAGE CRITERIA FOR LVH, CONSIDER NORMAL VARIANT; POSSIBLE ANTERIOR MYOCARDIAL INFARCTION, PROBABLY OLD; INFERIOR MYOCARDIAL INFARCTION, PROBABLY OLD; NO PRIOR FOR COMPARISON; Electronically Signed On 10-03-2016 17:35:43 EST by Luana Warren; Radiology Order: Chest, 1 View Test: Chest, 1 View REASON FOR EXAMINATION: Chest Pain; Clinical: Acute chest pain .; ; Comparison: 07/02/2007; ; Findings:; The mediastinum and cardiac silhouette are stable and within normal limits for; portable technique. The lung garcia are clear without acute consolidation,; effusion, or pneumothorax. Skeletal structures are intact.; ; Impression:; Normal portable chest x-ray; ; ; Signed by; Leonard Tapia MD 10/02/2016 01:34 A; Radiology Order: CT Chest Angio R/O PE Test: CT Chest Angio R/O PE REASON FOR EXAMINATION: Chest Pain; ; CT angiogram of the chest; Clinical statement: Chest pain and shortness of breath.; Technique: Multiple axial CT images were obtained from the thoracic inlet through the upper abdomen a; fter a bolus administration of nonionic intravenous contrast. Coronal and sagittal reconstructions we; re also obtained.; No comparison is available.; Findings: The pulmonary arteries are well-opacified with contrast, with no intraluminal filling defec; ts to suggest embolism. The thoracic aorta demonstrates moderate atherosclerosis with calcified and s; oft tissue plaque. There is no evidence of aneurysm or dissection. Thyroid gland is within normal epps; its. There is no thoracic lymphadenopathy. There are no pericardial or pleural effusions. The lungs a; re clear. Limited imaging of the upper abdomen is unremarkable. There are no suspicious osseous lesio; ns.; Impression: Unremarkable CT examination of the chest. No evidence of pulmonary embolism. 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 cs11 04:23 Discharge Assessment: Patient awake, alert and oriented x 3. No cognitive and/or af2 functional deficits noted. Patient verbalized understanding of disposition instructions. patient administered narcotics - no. The following High Risk Discharge criteria are identified: None. Transferred to [facility]. by EMS ground [facility]. Transferred by EMS ground report to accompanying personnel Mary Randall- EMT- P and Farncisco Hurst- EMT- B. Condition: stable. CT Study completed. Admission hand-off: Report called to Gayathri Miller RN. Property :Personal belongings accompany Pt. 04:36 Patient left the ED. af2 Signatures: Dispatcher [employer] EDMS Huyen Rowell, Reg Reg gb Estephanie Garcia,RN RN lf1 Keli Kern, MAINFRAME DEVELOPER MAINFRAME DEVELOPER raysa Warren Johnsonia dem1 Gaby Nolasco, DO DO cs11 Johanne Cosby RN RN af2 Fuad Latham, MAINFRAME DEVELOPER MAINFRAME DEVELOPER mdr Shari Abrams, Reg Reg hs2 Mora Valdez,RN RN mv5 Modesta Love RN nn1 Chart Complete MTDD
== END 2016-10-02 04:36 | disposition short-term general hospital (02) ==
LOC: M ED 21:16
DX: I20.0 Unstable angina (principal); R94.31 Abnormal electrocardiogram [ECG] [EKG]; E78.00 Pure hypercholesterolemia, unspecified; E07.9 Disorder of thyroid, unspecified; K21.9 Gastro-esophageal reflux disease without esophagitis; Z79.899 Other long term (current) drug therapy
CPT/HCPCS: 36415; 71010; 71275; 80048; 82550; 82553; 84484; 85027; 85610; 85730; 93005; 96374; 96375; 99285; J1885; Q9967

== ENCOUNTER 2016-10-17 12:24 | Outpatient (RCR) | payer OTHER, MEDICAID ==
[~2016-10-17 12:24] MED LIST: AMLO5TAB2 PO; ATEN25TA PO; HYDR25TAB PO; PRAV80TA2 PO; RANI150T PO; SYNT75TA PO; VIAC8.5C PO
== END 2016-10-23 ==
LOC: M CR 12:24
PROVIDERS: ATTEND Internal Medicine
DX: Z51.89 Encounter for other specified aftercare (principal); I25.10 Atherosclerotic heart disease of native coronary artery without angina pectoris

== ENCOUNTER 2016-10-21 23:22 | Emergency (ER) | payer OTHER, MEDICAID ==
[2016-10-21] MEDS ORDERED: ASPIRIN 81 MG CHEW TABLET As Ordered ONE (23:45)
[2016-10-21] MEDS ORDERED: NITROGLYCERIN 2% OINT 1 GM *U/D* PKT As Ordered ONE (23:46)
[2016-10-21] MEDS ORDERED: MORPHINE 2 MG/ML 1ML SYRINGE As Ordered ONE (23:46)
[2016-10-21] MEDS ORDERED: METOPROLOL TART 25 MG TABLET As Ordered ONE (23:46)
[2016-10-21 23:49] LABS: MEAN CORPUSCULAR HEMOGLOBIN 31.3 pg (27.0-33.0); MEAN CORPUSCULAR HGB CONC 34.7 g/dl (32.0-36.5); MEAN CORPUSCULAR VOLUME 90.3 fl (80.0-96.0); RED CELL DISTRIBUTION WIDTH 12.9 % (11.5-14.5); WHITE BLOOD COUNT 7.9 K/mm3 (4.0-10.0)
[2016-10-22 00:16] LABS: ANION GAP 11 MEQ/L (8-16); BLOOD UREA NITROGEN 17 MG/DL (7-18); CALCIUM LEVEL 9.3 MG/DL (8.8-10.2); CARBON DIOXIDE LEVEL 25 MEQ/L (21-32); CHLORIDE LEVEL 103 MEQ/L (98-107); CREATININE FOR GFR 0.81 MG/DL (0.55-1.02); GLOMERULAR FILTRATION RATE > 60.0 (>32); GLUCOSE, FASTING 116 MG/DL (83-110); POTASSIUM SERUM 3.9 MEQ/L (3.5-5.1); SODIUM LEVEL 139 MEQ/L (136-145)
--- NOTE | 2016-10-22 00:53 | REP ---
Clinical: Chest pain . Comparison: 10/01/2016 . Findings: The mediastinum and cardiac silhouette are stable and within normal limits for portable technique. The lung garcia are clear without acute consolidation, effusion, or pneumothorax. Skeletal structures are intact. Impression: Normal portable chest x-ray Signed by Leonard Tapia MD 10/22/2016 12:45 A
[2016-10-22] MEDS ORDERED: HEPARIN SOD (PORCINE) 5000 UNITS/ML VIAL As Ordered ONE (03:51)
[2016-10-22] MEDS ORDERED: HEPARIN 25,000 UNITS/250 ML D5W BAG (100 UNITS/ML) As Ordered ONE (03:51)
--- NOTE | 2016-10-22 06:55 | EDDOCDS ---
Nurse's Notes [facility] Name: Yi March Age: 81 yrs Sex: Female : 1935 Arrival Date: 10/21/2016 Time: 23:22 Bed OBSERVATION Private MD: Diagnosis: Unstable angina Presentation: 10/21 23:29 Presenting complaint: Patient states: Chest pain that began at 2200 and was not relived lf1 after 3 Nitro. Pt reports chest pain is mid to left chest radiating down left arm and neck, pain is currently 8/10. Pt is tearful in triage. Aspirin was not taken prior to arrival. Adult Sepsis Screening: The patient does not have new or worsening altered mentation. Patient's respiratory rate is less than 22. Systolic blood pressure is greater than 100. Patient has a qSOFA score of 0- Negative Sepsis Screen. Suicide/Homicide risk assessment- the patient denies having any suicidal and/or homicidal ideations and does not present with any other emotional, behavioral or mental health complaints. Status: Patient is not a sales representative electric service or dependent. Transition of care: patient was not received from another setting of care. Red Flag criteria, patient assessed and taken directly to a bed. Direct to room 10. 23:29 Acuity: FLORENCIO Level 2 lf1 23:29 Method Of Arrival: Walkin/Carried/Asstd lf1 Historical: - Allergies: No known drug Allergies; - Home Meds: 1. aspirin 81 mg Oral tab 1 tab once daily 2. lisinopril 5 mg Oral tab 1 tab once daily 3. metoprolol tartrate 25 mg Oral tab 1 tab once daily 4. nitroglycerin 0.4 mg SL subl 1 tab every 5 minutes 3rd dose (Last dose: 10/21/2016 22:25) 5. ticagrelor 90 mg oral tab 1 tab 2 times per day 6. amlodipine 5 mg Oral tab 1 tab once daily 7. Synthroid 75 mcg Oral tab Unknown 8. Pravachol 80 mg Oral tab 1 tab once daily 9. ranitidine HCl 150 mg oral cap 2 times per day 10. calcium carbonate 500 mg calcium (1,250 mg) Oral tab Unknown - PMHx: GERD; Hypercholesterolemia; Thyroid problem; Hypertension; - PSHx: Hysterectomy; Coronary Stents (October 02, 2016); - Social history: Smoking status: Patient states was never smoker of tobacco. No barriers to communication noted, The patient speaks fluent Mongolian, Speaks appropriately for age, Preferred Language: Mongolian. - Family history: No immediate family members are acutely ill. - : The pt / caregiver states he / she is not on anticoagulants. Home medication list is obtained from the patient. - Exposure Risk Screening:: None identified. Screenin/27 00:34 Screening information is obtained from the patient. Fall risk: No risks identified. mv5 Assistance ADL's: requires no assistance with activities of daily living. Abuse/DV Screen: The patient / caregiver reports he/she is: not in a situation that causes fear, pain or injury. Nutritional screening: No deficits noted. home support is adequate. 06:40 Advance Directives: There is no active DNR order. mv5 Assessment: 00:06 Adult Sepsis Screening: The patient does not have new or worsening altered mentation. mv5 Patient's respiratory rate is less than 22. Systolic blood pressure is greater than 100. Patient has a qSOFA score of 0- Negative Sepsis Screen. General: Appears uncomfortable, well nourished, well groomed, Behavior is anxious, cooperative. Pain: Location: anterior aspect of left upper chest, left breast, anterior aspect of left shoulder and left bicep Pain currently is 7 out of 10 on a pain scale. Neurological: Level of Consciousness is awake, alert, Oriented to person, place, time, Moves all extremities. Cardiovascular: Capillary refill < 3 seconds Heart tones S1 S2 present Rhythm is sinus rhythm No ectopy. Respiratory: Airway is patent Respiratory effort is even, unlabored, Respiratory pattern is regular, symmetrical. Derm: Skin is pink, warm & dry. 01:12 General: Appears in no apparent distress, comfortable, Behavior is cooperative, mv5 pleasant. Pain: Denies pain. Neurological: Level of Consciousness is awake, alert, Oriented to person, place, time. Cardiovascular: Rhythm is sinus rhythm No ectopy. Respiratory: Airway is patent Respiratory effort is even, unlabored, Respiratory pattern is regular, symmetrical. Derm: Skin is pink, warm & dry. 02:27 General: Appears in no apparent distress, comfortable. Neurological: Level of mv5 Consciousness is awake, alert. Cardiovascular: Rhythm is sinus rhythm No ectopy. Respiratory: Airway is patent Respiratory effort is even, unlabored, Respiratory pattern is regular, symmetrical. Derm: Skin is pink, warm & dry. 03:30 General: Appears in no apparent distress, comfortable. Neurological: Cardiovascular: mv5 Rhythm is sinus rhythm No ectopy. Respiratory: Airway is patent Respiratory effort is even, unlabored, Respiratory pattern is regular, symmetrical. Derm: Skin is pink, warm & dry. 04:40 General: Appears in no apparent distress, comfortable. Pain: Denies pain. mv5 Cardiovascular: Rhythm is sinus rhythm No ectopy. Respiratory: No deficits noted. Derm: Skin is pink, warm & dry. 05:18 General: Appears in no apparent distress, comfortable. Pain: Denies pain. mv5 Cardiovascular: Rhythm is sinus rhythm No ectopy. Respiratory: No deficits noted. Derm: Skin is pink, warm & dry. 06:12 General: Appears in no apparent distress, comfortable, Behavior is cooperative, mv5 pleasant, Pt and family made aware of pending transfer to [facility]. Consent for transfer completed.. Neurological: Level of Consciousness is awake, alert, Oriented to person, place, time. Cardiovascular: Rhythm is sinus rhythm No ectopy. Respiratory: No deficits noted. Derm: Skin is pink, warm & dry. 06:26 General: report called to [facility] , received by Lias Buenrostro RN.. 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 mv5 Pain: Denies pain. Neurological: Level of Consciousness is awake, alert, Oriented to person, place, none. Cardiovascular: Rhythm is sinus rhythm No ectopy. Respiratory: No deficits noted. Derm: Skin is pink, warm & dry. Vital Signs: 10/21 23:23 BP 184 / 108; Pulse 101; Resp 16; Temp 96.0(T); Pulse Ox 92% on R/A; Weight 61.23 kg lr2 (R); Height 4 ft. 10 in. (147.32 cm) (R); 23:37 BP 146 / 83; Pulse 82; Resp 20; Pulse Ox 96% on R/A; Pain 6/10; lf1 23:45 BP 153 / 80 (auto/); mv5 23:46 Pulse 80 MON; Pulse Ox 96% ; mv5 10/22 00:00 BP 171 / 74 (auto/); mv5 00:01 Pulse 86 MON; Pulse Ox 98% ; mv5 00:20 BP 177 / 77 (auto/); mv5 00:21 Pulse 86 MON; Pulse Ox 96% ; mv5 00:30 BP 152 / 78 (auto/); mv5 00:30 Pulse 80 MON; Pulse Ox 97% ; mv5 00:45 BP 141 / 68 (auto/); mv5 00:46 Pulse 74 MON; Pulse Ox 97% ; mv5 01:00 BP 139 / 67 (auto/); mv5 01:01 Pulse 74 MON; Pulse Ox 98% ; mv5 01:15 BP 127 / 62 (auto/); mv5 01:16 Pulse 72 MON; Pulse Ox 96% ; mv5 01:30 BP 146 / 69 (auto/); mv5 01:31 Pulse 70 MON; Pulse Ox 97% ; mv5 01:45 BP 140 / 75 (auto/); mv5 01:46 Pulse 72 MON; Pulse Ox 97% ; mv5 02:00 BP 142 / 73 (auto/); mv5 02:01 Pulse 72 MON; Pulse Ox 97% ; mv5 02:30 BP 151 / 70 (auto/); mv5 02:31 Pulse 70 MON; Pulse Ox 97% ; mv5 02:45 BP 145 / 68 (auto/); mv5 02:46 Pulse 70 MON; Pulse Ox 98% ; mv5 03:00 BP 139 / 69 (auto/); mv5 03:01 Pulse 74 MON; Pulse Ox 98% ; mv5 03:15 BP 137 / 73 (auto/); mv5 03:16 Pulse 68 MON; Pulse Ox 98% ; mv5 03:30 BP 143 / 63 (auto/); mv5 03:31 Pulse 66 MON; Pulse Ox 98% ; mv5 03:45 BP 123 / 61 (auto/); mv5 03:46 Pulse 66 MON; Pulse Ox 98% ; mv5 04:00 BP 122 / 60 (auto/); mv5 04:01 Pulse 64 MON; Pulse Ox 98% ; mv5 04:15 BP 136 / 62 (auto/); mv5 04:15 Pulse 62 MON; Pulse Ox 99% ; mv5 04:30 BP 134 / 60 (auto/); mv5 04:30 Pulse 60 MON; Pulse Ox 98% ; mv5 04:45 BP 126 / 60 (auto/); mv5 04:46 Pulse 60 MON; Pulse Ox 98% ; mv5 05:00 BP 122 / 60 (auto/); mv5 05:01 Pulse 58 MON; Pulse Ox 98% ; mv5 05:15 BP 133 / 60 (auto/); mv5 05:16 Pulse 58 MON; Pulse Ox 98% ; mv5 05:33 BP 149 / 70 (auto/); mv5 05:34 Pulse 64 MON; Pulse Ox 98% ; mv5 05:45 BP 151 / 73 (auto/); mv5 05:46 Pulse 66 MON; Pulse Ox 98% ; mv5 06:00 BP 173 / 78 (auto/); mv5 06:01 Pulse 70 MON; Pulse Ox 97% ; mv5 06:15 BP 144 / 65 (auto/); mv5 06:15 Pulse 68 MON; Pulse Ox 97% ; mv5 06:30 BP 155 / 85 (auto/); mv5 06:30 Pulse 72 MON; Pulse Ox 98% ; mv5 06:45 BP 145 / 67 (auto/); mv5 06:45 BP 145 / 67; Pulse 66 MON; Resp 18; Temp 96.5; Pulse Ox 96% ; mv5 10/21 23:23 Body Mass Index 28.21 (61.23 kg, 147.32 cm) lr2 Vitals: 10/21 23:23 Log In Time: October 21, 2016 at 23:22. lr2 ED Course: 23:23 Patient visited by Abida Mays. lr2 23:23 Patient moved to Waiting lr2 23:25 Mora Vadlez,RN is Primary Nurse. lr2 23:25 Patient moved to 10 lr2 23:29 Patient visited by Estephanie Garcia,GONZALO. lf1 23:31 Kuldeep Ford DO is Attending Physician. cs11 23:31 Pt greeted and oriented to ED. Patient advised of names of staff involved in care, raysa location of call bear, wait times and NPO status. Accompanied by Family Member, Patient has correct armband on for positive identification. Placed in gown. Bed in low position. Call light in reach. Side rails up X2. baker pie on. Pulse ox on. NIBP on. 23:31 EKG done. (by ED staff). Reviewed by Kuldeep Ford DO. raysa 23:32 Patient visited by Kuldeep Ford DO. cs11 23:32 Patient visited by Keli Kern PCA. raysa 23:32 Triage Initiated lf1 23:41 Cardiac Marker Panel Sent. mv5 23:41 Pt & Aptt Sent. mv5 23:41 MED Profile Sent. mv5 23:41 CBC Sent. mv5 10/22 00:08 Patient visited by Mora Valdez RN. mv5 00:34 The patient / caregiver is instructed regarding the plan of care and ED course. mv5 00:34 Inserted saline lock: 20 gauge in left antecubital area and blood collected. The mv5 patient tolerated the procedure well. 00:50 Patient visited by Mora Valdez RN. mv5 01:01 Chest, 1 View Returned. EDMS 01:20 Patient visited by Mora Valdez RN. mv5 01:32 Patient moved to OBSERVATION cs11 03:31 Patient visited by Keli Kern PCA. raysa 03:31 EKG done. (by ED staff). Reviewed by Kuldeep Ford DO. raysa 04:06 CARDIAC MARKER PANEL Sent. cln 04:15 [facility] Payment Agreement was scanned into [employer] and attached to record. hs2 06:40 Inserted saline lock: 20 gauge in left antecubital area The patient tolerated the mv5 procedure well. 06:45 No procedures done that require assistance. mv5 Administered Medications: 10/21 23:57 Drug: Aspirin 324 mg [aspirin 81 mg chewable tablet (4 tabs)] Route: PO; mv5 10/22 02:21 Follow up: Response: No Adverse Reaction mv5 10/21 23:57 Drug: Nitro-Bid 0.5 inches [Nitro-Bid 2 % transdermal ointment (0.5 inches)] Route: mv5 Transdermal; Site: anterior chest wall; 23:57 Drug: Metoprolol 25 mg [metoprolol tartrate 25 mg tablet (1 tabs)] Route: PO; mv5 10/22 02:21 Follow up: Response: No Adverse Reaction mv5 10/21 23:57 Drug: morphine 2 mg [morphine 2 mg/mL intravenous cartridge (1 mL)] Route: IVP; Site: mv5 left antecubital; 10/22 02:21 Follow up: Response: No Adverse Reaction mv5 04:00 Drug: heparin (Thrombolytic Protocol, 60 units/kg)) 3600 units [heparin (porcine) 5,000 mv5 unit/mL injection solution (0.72 mL)] {Co-Signature: kc3 (Rebecca Bustamante RN).} Route: IVP; Site: left antecubital; 04:00 Drug: heparin (Thrombolytic Protocol, 12 units/kg/hr)) 09712 units [heparin (porcine) mv5 25,000 unit/250 mL (100 unit/mL) in dextrose 5 % IV] {Co-Signature: kc3 (Rebecca Bustamante RN).} Route: IV; Rate: 730 units/hr; Site: left antecubital; Order Results: Lab Order: CBC; SPEC'M 10/21/16 23:40 Test: WHITE BLOOD COUNT; Value: 7.9; Range: 4.0-10.0; Units: K/mm3; Status: F Test: RED BLOOD COUNT; Value: 4.33; Range: 4.00-5.40; Units: M/mm3; Status: F Test: HEMOGLOBIN; Value: 13.6; Range: 12.0-16.0; Units: g/dl; Status: F Test: HEMATOCRIT; Value: 39.1; Range: 36.0-47.0; Units: %; Status: F Test: MEAN CORPUSCULAR VOLUME; Value: 90.3; Range: 80.0-96.0; Units: fl; Status: F Test: MEAN CORPUSCULAR HEMOGLOBIN; Value: 31.3; Range: 27.0-33.0; Units: pg; Status: F Test: MEAN CORPUSCULAR HGB CONC; Value: 34.7; Range: 32.0-36.5; Units: g/dl; Status: F Test: RED CELL DISTRIBUTION WIDTH; Value: 12.9; Range: 11.5-14.5; Units: %; Status: F Test: PLATELET COUNT, AUTOMATED; Value: 333; Range: 150-450; Units: k/mm3; Status: F Lab Order: MED Profile; SPEC'M 10/21/16 23:40 Test: GLUCOSE, FASTING; Value: 116; Range: 83-110; Abnormal: Above high normal; Units: MG/DL; Status: F Test: BLOOD UREA NITROGEN; Value: 17; Range: 7-18; Units: MG/DL; Status: F Test: CREATININE FOR GFR; Value: 0.81; Range: 0.55-1.02; Units: MG/DL; Status: F Test: GLOMERULAR FILTRATION RATE; Value: > 60.0; Range: >32; Status: F Test: SODIUM LEVEL; Value: 139; Range: 136-145; Units: MEQ/L; Status: F Test: POTASSIUM SERUM; Value: 3.9; Range: 3.5-5.1; Units: MEQ/L; Status: F Test: CHLORIDE LEVEL; Value: 103; Range: 98-107; Units: MEQ/L; Status: F Test: CARBON DIOXIDE LEVEL; Value: 25; Range: 21-32; Units: MEQ/L; Status: F Test: ANION GAP; Value: 11; Range: 8-16; Units: MEQ/L; Status: F Test: CALCIUM LEVEL; Value: 9.3; Range: 8.8-10.2; Units: MG/DL; Status: F Test Note: ; Units are mL/min/1.73 m2 Chronic Kidney Disease Staging per NKF: Stage I & II GFR >=60 Normal to Mildly Decreased Stage III GFR 30-59 Moderately Decreased Stage IV GFR 15-29 Severely Decreased Stage V GFR <15 Very Little GFR Left ESRD GFR <15 on [place] Lab Order: Pt & Aptt; SPEC'10/21/16 23:40 Test: PROTHROMBIN TIME; Value: 13.3; Range: 12.3-14.5; Units: SECONDS; Status: F Test: INR; Value: 1.00; Status: F Test: PARTIAL THROMBOPLASTIN TIME; Value: 31.7; Range: 26.6-37.1; Units: SECONDS; Status: F Test Note: ; THERAPUTIC HUMAN INR VALUES INDICATIONS NORMAL RANGES PROPHYLAXIS/TREATMENT OF: VENOUS THROMBOSIS 2.0-3.0 PULMONARY EMBOLISM 2.0-3.0 PREVENTION OF SYSTEMIC EMBOLISM FROM: TISSUE HEART VALVES 2.0-3.0 ACUTE MYOCARDIAL INFARCTION 2.0-3.0 VALVULAR HEART DISEASE 2.0-3.0 ATRIAL FIBRILLATION 2.0-3.0 MECHANICAL VALVES(HIGH RISK) 2.5-3.5 RECURRENT MYOCARDIAL INFARCTION 2.5-3.5 Lab Order: Cardiac Marker Panel; SPEC'10/21/16 23:40 Test: CPK CREATINE PHOSPHOKINASE; Value: 55; Range: 26-192; Units: U/L; Status: F Test: CK-MB VALUE MASS; Value: 1.0; Range: 0.0-3.6; Units: NG/ML; Status: F Test: MB/CK RELATIVE INDEX; Value: 1.81; Range: < OR =4; Status: F Test: TROPONIN I; Value: < 0.02; Range: < 0.10; Units: NG/ML; Status: F Test Note: ; DIAGNOSIS CRITERIA MMB ng/ml Relative Index (RI) NON-AMI < or = 5 N/A ESTRADA ZONE > 5 < or = 4 AMI > 5 > 4 Lab Order: CARDIAC MARKER PANEL; SPEC'M 10/22/16 04:04 Test: CPK CREATINE PHOSPHOKINASE; Value: 47; Range: 26-192; Units: U/L; Status: F Test: CK-MB VALUE MASS; Value: 1.2; Range: 0.0-3.6; Units: NG/ML; Status: F Test: MB/CK RELATIVE INDEX; Value: 2.55; Range: < OR =4; Status: F Test: TROPONIN I; Value: < 0.02; Range: < 0.10; Units: NG/ML; Status: F Test Note: ; DIAGNOSIS CRITERIA MMB ng/ml Relative Index (RI) NON-AMI < or = 5 N/A ESTRADA ZONE > 5 < or = 4 AMI > 5 > 4 Radiology Order: Chest, 1 View Test: Chest, 1 View REASON FOR EXAMINATION: Chest Pain; Clinical: Chest pain .; ; Comparison: 10/01/2016 .; ; Findings:; The mediastinum and cardiac silhouette are stable and within normal limits for; portable technique. The lung garcia are clear without acute consolidation,; effusion, or pneumothorax. Skeletal structures are intact.; ; Impression:; Normal portable chest x-ray; ; ; Signed by; Leonard Tapia MD 10/22/2016 12:45 A; Outcome: 05:41 ER care complete, transfer ordered by Provider. cs11 06:45 Discharge Assessment: Patient awake, alert and oriented x 3. No cognitive and/or mv5 functional deficits noted. Patient verbalized understanding of disposition instructions. patient administered narcotics - yes. Patient was admitted to the hospital or transferred to another facility. The following High Risk Discharge criteria are identified: None. Transferred to [facility]. by EMS ground. Condition: stable. No special radiology studies were completed. Property :Personal belongings accompany Pt. 06:55 Patient left the ED. mv5 Signatures: Dispatcher [employer] Estephanie MccallRN RN lf1 Keli Kern, COPY EDITOR COPY EDITOR Kuldeep Herron, DO DO cs11 Shari Abrams, Reg Reg hs2 Opal Kelley, COPY EDITOR COPY EDITOR Abida Nguyen lr2 Mora Valdez RN RN mv5 Rebecca Bustamante RN kc3 [facility]
--- NOTE | 2016-10-22 06:55 | EDDOCDS ---
Physician Documentation [facility] Name: Yi March Age: 81 yrs Sex: Female : 1935 Arrival Date: 10/21/2016 Time: 23:22 Bed OBSERVATION Private MD: Disposition: 10/22/16 05:41 Transfer ordered to [facility]. Diagnosis is Unstable angina. - Reason for transfer: Higher level of care. - Accepting physician is Dr Simon. - Condition is Stable. - Problem is new. - Symptoms have improved. Historical: - Allergies: No known drug Allergies; - Home Meds: 1. aspirin 81 mg Oral tab 1 tab once daily 2. lisinopril 5 mg Oral tab 1 tab once daily 3. metoprolol tartrate 25 mg Oral tab 1 tab once daily 4. nitroglycerin 0.4 mg SL subl 1 tab every 5 minutes 3rd dose (Last dose: 10/21/2016 22:25) 5. ticagrelor 90 mg oral tab 1 tab 2 times per day 6. amlodipine 5 mg Oral tab 1 tab once daily 7. Synthroid 75 mcg Oral tab Unknown 8. Pravachol 80 mg Oral tab 1 tab once daily 9. ranitidine HCl 150 mg oral cap 2 times per day 10. calcium carbonate 500 mg calcium (1,250 mg) Oral tab Unknown - PMHx: GERD; Hypercholesterolemia; Thyroid problem; Hypertension; - PSHx: Hysterectomy; Coronary Stents (October 02, 2016); - Social history: Smoking status: Patient states was never smoker of tobacco. No barriers to communication noted, The patient speaks fluent Portuguese, Speaks appropriately for age, Preferred Language: Portuguese. - Family history: No immediate family members are acutely ill. - : The pt / caregiver states he / she is not on anticoagulants. Home medication list is obtained from the patient. - Exposure Risk Screening:: None identified. Vital Signs: 10/21 23:23 BP 184 / 108; Pulse 101; Resp 16; Temp 96.0(T); Pulse Ox 92% on R/A; Weight 61.23 kg / lr2 134.99 lbs (R); Height 4 ft. 10 in. (147.32 cm) (R); 23:37 BP 146 / 83; Pulse 82; Resp 20; Pulse Ox 96% on R/A; Pain 6/10; lf1 23:45 BP 153 / 80 (auto/); mv5 23:46 Pulse 80 MON; Pulse Ox 96% ; mv5 02 00:00 BP 171 / 74 (auto/); mv5 00:01 Pulse 86 MON; Pulse Ox 98% ; mv5 00:20 BP 177 / 77 (auto/); mv5 00:21 Pulse 86 MON; Pulse Ox 96% ; mv5 00:30 BP 152 / 78 (auto/); mv5 00:30 Pulse 80 MON; Pulse Ox 97% ; mv5 00:45 BP 141 / 68 (auto/); mv5 00:46 Pulse 74 MON; Pulse Ox 97% ; mv5 01:00 BP 139 / 67 (auto/); mv5 01:01 Pulse 74 MON; Pulse Ox 98% ; mv5 01:15 BP 127 / 62 (auto/); mv5 01:16 Pulse 72 MON; Pulse Ox 96% ; mv5 01:30 BP 146 / 69 (auto/); mv5 01:31 Pulse 70 MON; Pulse Ox 97% ; mv5 01:45 BP 140 / 75 (auto/); mv5 01:46 Pulse 72 MON; Pulse Ox 97% ; mv5 02:00 BP 142 / 73 (auto/); mv5 02:01 Pulse 72 MON; Pulse Ox 97% ; mv5 02:30 BP 151 / 70 (auto/); mv5 02:31 Pulse 70 MON; Pulse Ox 97% ; mv5 02:45 BP 145 / 68 (auto/); mv5 02:46 Pulse 70 MON; Pulse Ox 98% ; mv5 03:00 BP 139 / 69 (auto/); mv5 03:01 Pulse 74 MON; Pulse Ox 98% ; mv5 03:15 BP 137 / 73 (auto/); mv5 03:16 Pulse 68 MON; Pulse Ox 98% ; mv5 03:30 BP 143 / 63 (auto/); mv5 03:31 Pulse 66 MON; Pulse Ox 98% ; mv5 03:45 BP 123 / 61 (auto/); mv5 03:46 Pulse 66 MON; Pulse Ox 98% ; mv5 04:00 BP 122 / 60 (auto/); mv5 04:01 Pulse 64 MON; Pulse Ox 98% ; mv5 04:15 BP 136 / 62 (auto/); mv5 04:15 Pulse 62 MON; Pulse Ox 99% ; mv5 04:30 BP 134 / 60 (auto/); mv5 04:30 Pulse 60 MON; Pulse Ox 98% ; mv5 04:45 BP 126 / 60 (auto/); mv5 04:46 Pulse 60 MON; Pulse Ox 98% ; mv5 05:00 BP 122 / 60 (auto/); mv5 05:01 Pulse 58 MON; Pulse Ox 98% ; mv5 05:15 BP 133 / 60 (auto/); mv5 05:16 Pulse 58 MON; Pulse Ox 98% ; mv5 05:33 BP 149 / 70 (auto/); mv5 05:34 Pulse 64 MON; Pulse Ox 98% ; mv5 05:45 BP 151 / 73 (auto/); mv5 05:46 Pulse 66 MON; Pulse Ox 98% ; mv5 06:00 BP 173 / 78 (auto/); mv5 06:01 Pulse 70 MON; Pulse Ox 97% ; mv5 06:15 BP 144 / 65 (auto/); mv5 06:15 Pulse 68 MON; Pulse Ox 97% ; mv5 06:30 BP 155 / 85 (auto/); mv5 06:30 Pulse 72 MON; Pulse Ox 98% ; mv5 06:45 BP 145 / 67 (auto/); mv5 06:45 BP 145 / 67; Pulse 66 MON; Resp 18; Temp 96.5; Pulse Ox 96% ; mv5 10/21 23:23 Body Mass Index 28.21 (61.23 kg, 147.32 cm) lr2 MDM: 10/21 23:29 ECG WITH READING ER PHYS+CARDIAG ordered. EDMS 23:33 Aspirin 324 mg PO once ordered. cs11 23:34 CBC Ordered. EDMS 23:34 MED Profile Ordered. EDMS 23:34 Pt & Aptt Ordered. EDMS 23:34 Cardiac Marker Panel Ordered. EDMS 23:35 Chest, 1 View Ordered. EDMS 23:41 Nitro-Bid Ointment 2 % 0.5 inches Transdermal once ordered. cs11 23:41 Metoprolol (Tartrate) 25 mg PO once ordered. cs11 23:42 morphine 2 mg IVP once ordered. cs11 23:42 Oxygen at 4L/Min NC or Home dosage ordered. cs11 10/22 00:30 MED Profile Reviewed. cs11 00:30 CBC Reviewed. cs11 00:30 Pt & Aptt Reviewed. cs11 00:30 Cardiac Marker Panel Reviewed. cs11 03:11 Financial registration complete. hs2 03:20 Misc Retirement Consultant Order ordered. cs11 03:25 [facility] [place] Order complete. raysa 03:28 ECG WITH READING ER PHYS ordered. EDMS 03:28 CARDIAC MARKER PANEL Ordered. EDMS 03:34 heparin (Thrombolytic Protocol, 60 units/kg)) 3600 units IVP once; max 4000 units. cs11 Ensure no Lovenox in past 18hr, labs drawn ordered. 03:34 heparin (Thrombolytic Protocol, 12 units/kg/hr)) 83098 units IV at 730 units/hr once; cs11 Max. dose 1000units/hr. No Lovenox past 18hrs/ draw labs. ordered. 04:15 [facility] Payment Agreement was scanned into [employer] and attached to record. hs2 05:23 CARDIAC MARKER PANEL Reviewed. cs11 05:23 Chest, 1 View Reviewed. cs11 Administered Medications: 10/21 23:57 Drug: Aspirin 324 mg [aspirin 81 mg chewable tablet (4 tabs)] Route: PO; mv5 10/22 02:21 Follow up: Response: No Adverse Reaction 5 10/21 23:57 Drug: Nitro-Bid 0.5 inches [Nitro-Bid 2 % transdermal ointment (0.5 inches)] Route: mv5 Transdermal; Site: anterior chest wall; 23:57 Drug: Metoprolol 25 mg [metoprolol tartrate 25 mg tablet (1 tabs)] Route: PO; mv5 10/22 02:21 Follow up: Response: No Adverse Reaction 5 10/21 23:57 Drug: morphine 2 mg [morphine 2 mg/mL intravenous cartridge (1 mL)] Route: IVP; Site: mv5 left antecubital; 10/22 02:21 Follow up: Response: No Adverse Reaction mv5 04:00 Drug: heparin (Thrombolytic Protocol, 60 units/kg)) 3600 units [heparin (porcine) 5,000 mv5 unit/mL injection solution (0.72 mL)] {Co-Signature: kc3 (Rebecca Bustamante RN).} Route: IVP; Site: left antecubital; 04:00 Drug: heparin (Thrombolytic Protocol, 12 units/kg/hr)) 73353 units [heparin (porcine) mv5 25,000 unit/250 mL (100 unit/mL) in dextrose 5 % IV] {Co-Signature: kc3 (Rebecca Bustamante RN).} Route: IV; Rate: 730 units/hr; Site: left antecubital; Signatures: Dispatcher [employer] Estephanie Mccall RN RN lf1 Keli Kern, HVAC TECH HVAC TECH raysa Kuldeep Ford, DO DO cs11 Shari Abrams, Reg Reg hs2 Mora Valdez RN RN mv5 Rebecca Bustamante RN kc3 The chart was reviewed and I authenticate all verbal orders and agree with the evaluation and treatment provided.Attachments: 04:15 [facility] [place] Payment Agreement hs2 MTDD
--- NOTE | 2016-10-22 07:53 | ECGEPIP ---
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
--- NOTE | 2016-10-22 07:57 | ECGEPIP ---
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
--- NOTE | 2016-10-24 07:56 | EDDOCDS ---
Physician Documentation [facility] Name: Yi March Age: 81 yrs Sex: Female : 1935 Arrival Date: 10/21/2016 Time: 23:22 Bed OBSERVATION Private MD: Disposition: 10/22/16 05:41 Transfer ordered to [facility]. Diagnosis is Unstable angina. - Reason for transfer: Higher level of care. - Accepting physician is Dr Simon. - Condition is Stable. - Problem is new. - Symptoms have improved. Historical: - Allergies: No known drug Allergies; - Home Meds: 1. aspirin 81 mg Oral tab 1 tab once daily 2. lisinopril 5 mg Oral tab 1 tab once daily 3. metoprolol tartrate 25 mg Oral tab 1 tab once daily 4. nitroglycerin 0.4 mg SL subl 1 tab every 5 minutes 3rd dose (Last dose: 10/21/2016 22:25) 5. ticagrelor 90 mg oral tab 1 tab 2 times per day 6. amlodipine 5 mg Oral tab 1 tab once daily 7. Synthroid 75 mcg Oral tab Unknown 8. Pravachol 80 mg Oral tab 1 tab once daily 9. ranitidine HCl 150 mg oral cap 2 times per day 10. calcium carbonate 500 mg calcium (1,250 mg) Oral tab Unknown - PMHx: GERD; Hypercholesterolemia; Thyroid problem; Hypertension; - PSHx: Hysterectomy; Coronary Stents (October 02, 2016); - Social history: Smoking status: Patient states was never smoker of tobacco. No barriers to communication noted, The patient speaks fluent Slovenian, Speaks appropriately for age, Preferred Language: Slovenian. - Family history: No immediate family members are acutely ill. - : The pt / caregiver states he / she is not on anticoagulants. Home medication list is obtained from the patient. - Exposure Risk Screening:: None identified. Vital Signs: 10/21 23:23 BP 184 / 108; Pulse 101; Resp 16; Temp 96.0(T); Pulse Ox 92% on R/A; Weight 61.23 kg / lr2 134.99 lbs (R); Height 4 ft. 10 in. (147.32 cm) (R); 23:37 BP 146 / 83; Pulse 82; Resp 20; Pulse Ox 96% on R/A; Pain 6/10; lf1 23:45 BP 153 / 80 (auto/); mv5 23:46 Pulse 80 MON; Pulse Ox 96% ; mv5 02 00:00 BP 171 / 74 (auto/); mv5 00:01 Pulse 86 MON; Pulse Ox 98% ; mv5 00:20 BP 177 / 77 (auto/); mv5 00:21 Pulse 86 MON; Pulse Ox 96% ; mv5 00:30 BP 152 / 78 (auto/); mv5 00:30 Pulse 80 MON; Pulse Ox 97% ; mv5 00:45 BP 141 / 68 (auto/); mv5 00:46 Pulse 74 MON; Pulse Ox 97% ; mv5 01:00 BP 139 / 67 (auto/); mv5 01:01 Pulse 74 MON; Pulse Ox 98% ; mv5 01:15 BP 127 / 62 (auto/); mv5 01:16 Pulse 72 MON; Pulse Ox 96% ; mv5 01:30 BP 146 / 69 (auto/); mv5 01:31 Pulse 70 MON; Pulse Ox 97% ; mv5 01:45 BP 140 / 75 (auto/); mv5 01:46 Pulse 72 MON; Pulse Ox 97% ; mv5 02:00 BP 142 / 73 (auto/); mv5 02:01 Pulse 72 MON; Pulse Ox 97% ; mv5 02:30 BP 151 / 70 (auto/); mv5 02:31 Pulse 70 MON; Pulse Ox 97% ; mv5 02:45 BP 145 / 68 (auto/); mv5 02:46 Pulse 70 MON; Pulse Ox 98% ; mv5 03:00 BP 139 / 69 (auto/); mv5 03:01 Pulse 74 MON; Pulse Ox 98% ; mv5 03:15 BP 137 / 73 (auto/); mv5 03:16 Pulse 68 MON; Pulse Ox 98% ; mv5 03:30 BP 143 / 63 (auto/); mv5 03:31 Pulse 66 MON; Pulse Ox 98% ; mv5 03:45 BP 123 / 61 (auto/); mv5 03:46 Pulse 66 MON; Pulse Ox 98% ; mv5 04:00 BP 122 / 60 (auto/); mv5 04:01 Pulse 64 MON; Pulse Ox 98% ; mv5 04:15 BP 136 / 62 (auto/); mv5 04:15 Pulse 62 MON; Pulse Ox 99% ; mv5 04:30 BP 134 / 60 (auto/); mv5 04:30 Pulse 60 MON; Pulse Ox 98% ; mv5 04:45 BP 126 / 60 (auto/); mv5 04:46 Pulse 60 MON; Pulse Ox 98% ; mv5 05:00 BP 122 / 60 (auto/); mv5 05:01 Pulse 58 MON; Pulse Ox 98% ; mv5 05:15 BP 133 / 60 (auto/); mv5 05:16 Pulse 58 MON; Pulse Ox 98% ; mv5 05:33 BP 149 / 70 (auto/); mv5 05:34 Pulse 64 MON; Pulse Ox 98% ; mv5 05:45 BP 151 / 73 (auto/); mv5 05:46 Pulse 66 MON; Pulse Ox 98% ; mv5 06:00 BP 173 / 78 (auto/); mv5 06:01 Pulse 70 MON; Pulse Ox 97% ; mv5 06:15 BP 144 / 65 (auto/); mv5 06:15 Pulse 68 MON; Pulse Ox 97% ; mv5 06:30 BP 155 / 85 (auto/); mv5 06:30 Pulse 72 MON; Pulse Ox 98% ; mv5 06:45 BP 145 / 67 (auto/); mv5 06:45 BP 145 / 67; Pulse 66 MON; Resp 18; Temp 96.5; Pulse Ox 96% ; mv5 10/21 23:23 Body Mass Index 28.21 (61.23 kg, 147.32 cm) lr2 MDM: 10/21 23:29 ECG WITH READING ER PHYS+CARDIAG ordered. EDMS 23:33 Aspirin 324 mg PO once ordered. cs11 23:34 CBC Ordered. EDMS 23:34 MED Profile Ordered. EDMS 23:34 Pt & Aptt Ordered. EDMS 23:34 Cardiac Marker Panel Ordered. EDMS 23:35 Chest, 1 View Ordered. EDMS 23:41 Nitro-Bid Ointment 2 % 0.5 inches Transdermal once ordered. cs11 23:41 Metoprolol (Tartrate) 25 mg PO once ordered. cs11 23:42 morphine 2 mg IVP once ordered. cs11 23:42 Oxygen at 4L/Min NC or Home dosage ordered. cs11 10/22 00:30 MED Profile Reviewed. cs11 00:30 CBC Reviewed. cs11 00:30 Pt & Aptt Reviewed. cs11 00:30 Cardiac Marker Panel Reviewed. cs11 03:11 Financial registration complete. hs2 03:20 Misc Client Services Assistant Order ordered. cs11 03:25 [facility] [place] Order complete. raysa 03:28 ECG WITH READING ER PHYS ordered. EDMS 03:28 CARDIAC MARKER PANEL Ordered. EDMS 03:34 heparin (Thrombolytic Protocol, 60 units/kg)) 3600 units IVP once; max 4000 units. cs11 Ensure no Lovenox in past 18hr, labs drawn ordered. 03:34 heparin (Thrombolytic Protocol, 12 units/kg/hr)) 67037 units IV at 730 units/hr once; cs11 Max. dose 1000units/hr. No Lovenox past 18hrs/ draw labs. ordered. 04:15 [facility] Payment Agreement was scanned into [employer] and attached to record. hs2 05:23 CARDIAC MARKER PANEL Reviewed. cs11 05:23 Chest, 1 View Reviewed. cs11 13:19 T-Sheet-- Draft Copy was scanned into [employer] and attached to record. gb 13:19 ECG/EKG was scanned into [employer] and attached to record. gb Administered Medications: 10/21 23:57 Drug: Aspirin 324 mg [aspirin 81 mg chewable tablet (4 tabs)] Route: PO; mv5 10/22 02:21 Follow up: Response: No Adverse Reaction mv5 10/21 23:57 Drug: Nitro-Bid 0.5 inches [Nitro-Bid 2 % transdermal ointment (0.5 inches)] Route: mv5 Transdermal; Site: anterior chest wall; 23:57 Drug: Metoprolol 25 mg [metoprolol tartrate 25 mg tablet (1 tabs)] Route: PO; mv5 10/22 02:21 Follow up: Response: No Adverse Reaction mv5 10/21 23:57 Drug: morphine 2 mg [morphine 2 mg/mL intravenous cartridge (1 mL)] Route: IVP; Site: mv5 left antecubital; 10/22 02:21 Follow up: Response: No Adverse Reaction mv5 04:00 Drug: heparin (Thrombolytic Protocol, 60 units/kg)) 3600 units [heparin (porcine) 5,000 mv5 unit/mL injection solution (0.72 mL)] {Co-Signature: kc3 (Rebecca Bustamante RN).} Route: IVP; Site: left antecubital; 04:00 Drug: heparin (Thrombolytic Protocol, 12 units/kg/hr)) 72204 units [heparin (porcine) mv5 25,000 unit/250 mL (100 unit/mL) in dextrose 5 % IV] {Co-Signature: kc3 (Rebecca Bustamante RN).} Route: IV; Rate: 730 units/hr; Site: left antecubital; Signatures: Dispatcher [employer] EDMN Huyen Rowell, Reg Reg gb Estephanie Garcia RN RN lf1 Keli Kern, BASE REMOVER BASE REMOVER raysa Kuldeep Ford, DO DO cs11 Shari Abrams, Reg Reg hs2 Mora Valdez RN RN mv5 Rebecca Bustamante RN kc3 The chart was reviewed and I authenticate all verbal orders and agree with the evaluation and treatment provided.Attachments: 04:15 [facility] Payment Agreement hs2 13:19 T-Sheet-- Draft Copy gb 13:19 ECG/EKG gb Chart Complete MTDD
--- NOTE | 2016-10-24 07:56 | EDDOCDS ---
Physician Documentation [facility] Name: Yi March Age: 81 yrs Sex: Female : 1935 Arrival Date: 10/21/2016 Time: 23:22 Bed OBSERVATION Private MD: Disposition: 10/22/16 05:41 Transfer ordered to [facility]. Diagnosis is Unstable angina. - Reason for transfer: Higher level of care. - Accepting physician is Dr Simon. - Condition is Stable. - Problem is new. - Symptoms have improved. Historical: - Allergies: No known drug Allergies; - Home Meds: 1. aspirin 81 mg Oral tab 1 tab once daily 2. lisinopril 5 mg Oral tab 1 tab once daily 3. metoprolol tartrate 25 mg Oral tab 1 tab once daily 4. nitroglycerin 0.4 mg SL subl 1 tab every 5 minutes 3rd dose (Last dose: 10/21/2016 22:25) 5. ticagrelor 90 mg oral tab 1 tab 2 times per day 6. amlodipine 5 mg Oral tab 1 tab once daily 7. Synthroid 75 mcg Oral tab Unknown 8. Pravachol 80 mg Oral tab 1 tab once daily 9. ranitidine HCl 150 mg oral cap 2 times per day 10. calcium carbonate 500 mg calcium (1,250 mg) Oral tab Unknown - PMHx: GERD; Hypercholesterolemia; Thyroid problem; Hypertension; - PSHx: Hysterectomy; Coronary Stents (October 02, 2016); - Social history: Smoking status: Patient states was never smoker of tobacco. No barriers to communication noted, The patient speaks fluent Macedonian, Speaks appropriately for age, Preferred Language: Macedonian. - Family history: No immediate family members are acutely ill. - : The pt / caregiver states he / she is not on anticoagulants. Home medication list is obtained from the patient. - Exposure Risk Screening:: None identified. Vital Signs: 10/21 23:23 BP 184 / 108; Pulse 101; Resp 16; Temp 96.0(T); Pulse Ox 92% on R/A; Weight 61.23 kg / lr2 134.99 lbs (R); Height 4 ft. 10 in. (147.32 cm) (R); 23:37 BP 146 / 83; Pulse 82; Resp 20; Pulse Ox 96% on R/A; Pain 6/10; lf1 23:45 BP 153 / 80 (auto/); mv5 23:46 Pulse 80 MON; Pulse Ox 96% ; mv5 02 00:00 BP 171 / 74 (auto/); mv5 00:01 Pulse 86 MON; Pulse Ox 98% ; mv5 00:20 BP 177 / 77 (auto/); mv5 00:21 Pulse 86 MON; Pulse Ox 96% ; mv5 00:30 BP 152 / 78 (auto/); mv5 00:30 Pulse 80 MON; Pulse Ox 97% ; mv5 00:45 BP 141 / 68 (auto/); mv5 00:46 Pulse 74 MON; Pulse Ox 97% ; mv5 01:00 BP 139 / 67 (auto/); mv5 01:01 Pulse 74 MON; Pulse Ox 98% ; mv5 01:15 BP 127 / 62 (auto/); mv5 01:16 Pulse 72 MON; Pulse Ox 96% ; mv5 01:30 BP 146 / 69 (auto/); mv5 01:31 Pulse 70 MON; Pulse Ox 97% ; mv5 01:45 BP 140 / 75 (auto/); mv5 01:46 Pulse 72 MON; Pulse Ox 97% ; mv5 02:00 BP 142 / 73 (auto/); mv5 02:01 Pulse 72 MON; Pulse Ox 97% ; mv5 02:30 BP 151 / 70 (auto/); mv5 02:31 Pulse 70 MON; Pulse Ox 97% ; mv5 02:45 BP 145 / 68 (auto/); mv5 02:46 Pulse 70 MON; Pulse Ox 98% ; mv5 03:00 BP 139 / 69 (auto/); mv5 03:01 Pulse 74 MON; Pulse Ox 98% ; mv5 03:15 BP 137 / 73 (auto/); mv5 03:16 Pulse 68 MON; Pulse Ox 98% ; mv5 03:30 BP 143 / 63 (auto/); mv5 03:31 Pulse 66 MON; Pulse Ox 98% ; mv5 03:45 BP 123 / 61 (auto/); mv5 03:46 Pulse 66 MON; Pulse Ox 98% ; mv5 04:00 BP 122 / 60 (auto/); mv5 04:01 Pulse 64 MON; Pulse Ox 98% ; mv5 04:15 BP 136 / 62 (auto/); mv5 04:15 Pulse 62 MON; Pulse Ox 99% ; mv5 04:30 BP 134 / 60 (auto/); mv5 04:30 Pulse 60 MON; Pulse Ox 98% ; mv5 04:45 BP 126 / 60 (auto/); mv5 04:46 Pulse 60 MON; Pulse Ox 98% ; mv5 05:00 BP 122 / 60 (auto/); mv5 05:01 Pulse 58 MON; Pulse Ox 98% ; mv5 05:15 BP 133 / 60 (auto/); mv5 05:16 Pulse 58 MON; Pulse Ox 98% ; mv5 05:33 BP 149 / 70 (auto/); mv5 05:34 Pulse 64 MON; Pulse Ox 98% ; mv5 05:45 BP 151 / 73 (auto/); mv5 05:46 Pulse 66 MON; Pulse Ox 98% ; mv5 06:00 BP 173 / 78 (auto/); mv5 06:01 Pulse 70 MON; Pulse Ox 97% ; mv5 06:15 BP 144 / 65 (auto/); mv5 06:15 Pulse 68 MON; Pulse Ox 97% ; mv5 06:30 BP 155 / 85 (auto/); mv5 06:30 Pulse 72 MON; Pulse Ox 98% ; mv5 06:45 BP 145 / 67 (auto/); mv5 06:45 BP 145 / 67; Pulse 66 MON; Resp 18; Temp 96.5; Pulse Ox 96% ; mv5 10/21 23:23 Body Mass Index 28.21 (61.23 kg, 147.32 cm) lr2 MDM: 10/21 23:29 ECG WITH READING ER PHYS+CARDIAG ordered. EDMS 23:33 Aspirin 324 mg PO once ordered. cs11 23:34 CBC Ordered. EDMS 23:34 MED Profile Ordered. EDMS 23:34 Pt & Aptt Ordered. EDMS 23:34 Cardiac Marker Panel Ordered. EDMS 23:35 Chest, 1 View Ordered. EDMS 23:41 Nitro-Bid Ointment 2 % 0.5 inches Transdermal once ordered. cs11 23:41 Metoprolol (Tartrate) 25 mg PO once ordered. cs11 23:42 morphine 2 mg IVP once ordered. cs11 23:42 Oxygen at 4L/Min NC or Home dosage ordered. cs11 10/22 00:30 MED Profile Reviewed. cs11 00:30 CBC Reviewed. cs11 00:30 Pt & Aptt Reviewed. cs11 00:30 Cardiac Marker Panel Reviewed. cs11 03:11 Financial registration complete. hs2 03:20 Misc Wastewater Treatment Supervisor Order ordered. cs11 03:25 [facility] Wastewater Treatment Supervisor Order complete. rasya 03:28 ECG WITH READING ER PHYS ordered. EDMS 03:28 CARDIAC MARKER PANEL Ordered. EDMS 03:34 heparin (Thrombolytic Protocol, 60 units/kg)) 3600 units IVP once; max 4000 units. cs11 Ensure no Lovenox in past 18hr, labs drawn ordered. 03:34 heparin (Thrombolytic Protocol, 12 units/kg/hr)) 55030 units IV at 730 units/hr once; cs11 Max. dose 1000units/hr. No Lovenox past 18hrs/ draw labs. ordered. 04:15 [facility] Payment Agreement was scanned into [employer] and attached to record. hs2 05:23 CARDIAC MARKER PANEL Reviewed. cs11 05:23 Chest, 1 View Reviewed. cs11 13:19 T-Sheet-- Draft Copy was scanned into [employer] and attached to record. gb 13:19 ECG/EKG was scanned into [employer] and attached to record. gb Administered Medications: 10/21 23:57 Drug: Aspirin 324 mg [aspirin 81 mg chewable tablet (4 tabs)] Route: PO; mv5 10/22 02:21 Follow up: Response: No Adverse Reaction mv5 10/21 23:57 Drug: Nitro-Bid 0.5 inches [Nitro-Bid 2 % transdermal ointment (0.5 inches)] Route: mv5 Transdermal; Site: anterior chest wall; 23:57 Drug: Metoprolol 25 mg [metoprolol tartrate 25 mg tablet (1 tabs)] Route: PO; mv5 10/22 02:21 Follow up: Response: No Adverse Reaction mv5 10/21 23:57 Drug: morphine 2 mg [morphine 2 mg/mL intravenous cartridge (1 mL)] Route: IVP; Site: mv5 left antecubital; 10/22 02:21 Follow up: Response: No Adverse Reaction mv5 04:00 Drug: heparin (Thrombolytic Protocol, 60 units/kg)) 3600 units [heparin (porcine) 5,000 mv5 unit/mL injection solution (0.72 mL)] {Co-Signature: kc3 (Rebecca Bustamante RN).} Route: IVP; Site: left antecubital; 04:00 Drug: heparin (Thrombolytic Protocol, 12 units/kg/hr)) 93333 units [heparin (porcine) mv5 25,000 unit/250 mL (100 unit/mL) in dextrose 5 % IV] {Co-Signature: kc3 (Rebecca Bustamante RN).} Route: IV; Rate: 730 units/hr; Site: left antecubital; Signatures: Dispatcher [employer] EDMA Huyen Rowell, Reg Reg gb Estephanie Garcia RN RN lf1 Keli Kern, OPERATIONS FORESTER OPERATIONS FORESTER raysa Kuldeep Ford, DO DO cs11 Shari Abrams, Reg Reg hs2 Mora Valdez RN RN mv5 Rebecca Bustamante RN kc3 The chart was reviewed and I authenticate all verbal orders and agree with the evaluation and treatment provided.Attachments: 04:15 [facility] Payment Agreement hs2 13:19 T-Sheet-- Draft Copy gb 13:19 ECG/EKG gb Chart Complete MTDD
--- NOTE | 2016-10-24 07:57 | EDDOCDS ---
Nurse's Notes [facility] Name: Geneva Bennett Age: 81 yrs Sex: Female : 1935 Arrival Date: 10/21/2016 Time: 23:22 Bed OBSERVATION Private MD: Diagnosis: Unstable angina Presentation: 10/21 23:29 Presenting complaint: Patient states: Chest pain that began at 2200 and was not relived lf1 after 3 Nitro. Pt reports chest pain is mid to left chest radiating down left arm and neck, pain is currently 8/10. Pt is tearful in triage. Aspirin was not taken prior to arrival. Adult Sepsis Screening: The patient does not have new or worsening altered mentation. Patient's respiratory rate is less than 22. Systolic blood pressure is greater than 100. Patient has a qSOFA score of 0- Negative Sepsis Screen. Suicide/Homicide risk assessment- the patient denies having any suicidal and/or homicidal ideations and does not present with any other emotional, behavioral or mental health complaints. 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 Transition of care: patient was not received from another setting of care. Red Flag criteria, patient assessed and taken directly to a bed. Direct to room 10. 23:29 Acuity: FLORENCIO Level 2 lf1 23:29 Method Of Arrival: Walkin/Carried/Asstd lf1 Historical: - Allergies: No known drug Allergies; - Home Meds: 1. aspirin 81 mg Oral tab 1 tab once daily 2. lisinopril 5 mg Oral tab 1 tab once daily 3. metoprolol tartrate 25 mg Oral tab 1 tab once daily 4. nitroglycerin 0.4 mg SL subl 1 tab every 5 minutes 3rd dose (Last dose: 10/21/2016 22:25) 5. ticagrelor 90 mg oral tab 1 tab 2 times per day 6. amlodipine 5 mg Oral tab 1 tab once daily 7. Synthroid 75 mcg Oral tab Unknown 8. Pravachol 80 mg Oral tab 1 tab once daily 9. ranitidine HCl 150 mg oral cap 2 times per day 10. calcium carbonate 500 mg calcium (1,250 mg) Oral tab Unknown - PMHx: GERD; Hypercholesterolemia; Thyroid problem; Hypertension; - PSHx: Hysterectomy; Coronary Stents (October 02, 2016); - Social history: Smoking status: Patient states was never smoker of tobacco. No barriers to communication noted, The patient speaks fluent Albanian, Speaks appropriately for age, Preferred Language: Albanian. - Family history: No immediate family members are acutely ill. - : The pt / caregiver states he / she is not on anticoagulants. Home medication list is obtained from the patient. - Exposure Risk Screening:: None identified. Screenin/27 00:34 Screening information is obtained from the patient. Fall risk: No risks identified. mv5 Assistance ADL's: requires no assistance with activities of daily living. Abuse/DV Screen: The patient / caregiver reports he/she is: not in a situation that causes fear, pain or injury. Nutritional screening: No deficits noted. home support is adequate. 06:40 Advance Directives: There is no active DNR order. mv5 Assessment: 00:06 Adult Sepsis Screening: The patient does not have new or worsening altered mentation. mv5 Patient's respiratory rate is less than 22. Systolic blood pressure is greater than 100. Patient has a qSOFA score of 0- Negative Sepsis Screen. General: Appears uncomfortable, well nourished, well groomed, Behavior is anxious, cooperative. Pain: Location: anterior aspect of left upper chest, left breast, anterior aspect of left shoulder and left bicep Pain currently is 7 out of 10 on a pain scale. Neurological: Level of Consciousness is awake, alert, Oriented to person, place, time, Moves all extremities. Cardiovascular: Capillary refill < 3 seconds Heart tones S1 S2 present Rhythm is sinus rhythm No ectopy. Respiratory: Airway is patent Respiratory effort is even, unlabored, Respiratory pattern is regular, symmetrical. Derm: Skin is pink, warm & dry. 01:12 General: Appears in no apparent distress, comfortable, Behavior is cooperative, mv5 pleasant. Pain: Denies pain. Neurological: Level of Consciousness is awake, alert, Oriented to person, place, time. Cardiovascular: Rhythm is sinus rhythm No ectopy. Respiratory: Airway is patent Respiratory effort is even, unlabored, Respiratory pattern is regular, symmetrical. Derm: Skin is pink, warm & dry. 02:27 General: Appears in no apparent distress, comfortable. Neurological: Level of mv5 Consciousness is awake, alert. Cardiovascular: Rhythm is sinus rhythm No ectopy. Respiratory: Airway is patent Respiratory effort is even, unlabored, Respiratory pattern is regular, symmetrical. Derm: Skin is pink, warm & dry. 03:30 General: Appears in no apparent distress, comfortable. Neurological: Cardiovascular: mv5 Rhythm is sinus rhythm No ectopy. Respiratory: Airway is patent Respiratory effort is even, unlabored, Respiratory pattern is regular, symmetrical. Derm: Skin is pink, warm & dry. 04:40 General: Appears in no apparent distress, comfortable. Pain: Denies pain. mv5 Cardiovascular: Rhythm is sinus rhythm No ectopy. Respiratory: No deficits noted. Derm: Skin is pink, warm & dry. 05:18 General: Appears in no apparent distress, comfortable. Pain: Denies pain. mv5 Cardiovascular: Rhythm is sinus rhythm No ectopy. Respiratory: No deficits noted. Derm: Skin is pink, warm & dry. 06:12 General: Appears in no apparent distress, comfortable, Behavior is cooperative, mv5 pleasant, Pt and family made aware of pending transfer to [facility]. Consent for transfer completed.. Neurological: Level of Consciousness is awake, alert, Oriented to person, place, time. Cardiovascular: Rhythm is sinus rhythm No ectopy. Respiratory: No deficits noted. Derm: Skin is pink, warm & dry. 06:26 General: report called to [facility] , received by Lisa Buenrostro RN.. 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 mv5 Pain: Denies pain. Neurological: Level of Consciousness is awake, alert, Oriented to person, place, none. Cardiovascular: Rhythm is sinus rhythm No ectopy. Respiratory: No deficits noted. Derm: Skin is pink, warm & dry. Vital Signs: 10/21 23:23 BP 184 / 108; Pulse 101; Resp 16; Temp 96.0(T); Pulse Ox 92% on R/A; Weight 61.23 kg lr2 (R); Height 4 ft. 10 in. (147.32 cm) (R); 23:37 BP 146 / 83; Pulse 82; Resp 20; Pulse Ox 96% on R/A; Pain 6/10; lf1 23:45 BP 153 / 80 (auto/); mv5 23:46 Pulse 80 MON; Pulse Ox 96% ; mv5 10/22 00:00 BP 171 / 74 (auto/); mv5 00:01 Pulse 86 MON; Pulse Ox 98% ; mv5 00:20 BP 177 / 77 (auto/); mv5 00:21 Pulse 86 MON; Pulse Ox 96% ; mv5 00:30 BP 152 / 78 (auto/); mv5 00:30 Pulse 80 MON; Pulse Ox 97% ; mv5 00:45 BP 141 / 68 (auto/); mv5 00:46 Pulse 74 MON; Pulse Ox 97% ; mv5 01:00 BP 139 / 67 (auto/); mv5 01:01 Pulse 74 MON; Pulse Ox 98% ; mv5 01:15 BP 127 / 62 (auto/); mv5 01:16 Pulse 72 MON; Pulse Ox 96% ; mv5 01:30 BP 146 / 69 (auto/); mv5 01:31 Pulse 70 MON; Pulse Ox 97% ; mv5 01:45 BP 140 / 75 (auto/); mv5 01:46 Pulse 72 MON; Pulse Ox 97% ; mv5 02:00 BP 142 / 73 (auto/); mv5 02:01 Pulse 72 MON; Pulse Ox 97% ; mv5 02:30 BP 151 / 70 (auto/); mv5 02:31 Pulse 70 MON; Pulse Ox 97% ; mv5 02:45 BP 145 / 68 (auto/); mv5 02:46 Pulse 70 MON; Pulse Ox 98% ; mv5 03:00 BP 139 / 69 (auto/); mv5 03:01 Pulse 74 MON; Pulse Ox 98% ; mv5 03:15 BP 137 / 73 (auto/); mv5 03:16 Pulse 68 MON; Pulse Ox 98% ; mv5 03:30 BP 143 / 63 (auto/); mv5 03:31 Pulse 66 MON; Pulse Ox 98% ; mv5 03:45 BP 123 / 61 (auto/); mv5 03:46 Pulse 66 MON; Pulse Ox 98% ; mv5 04:00 BP 122 / 60 (auto/); mv5 04:01 Pulse 64 MON; Pulse Ox 98% ; mv5 04:15 BP 136 / 62 (auto/); mv5 04:15 Pulse 62 MON; Pulse Ox 99% ; mv5 04:30 BP 134 / 60 (auto/); mv5 04:30 Pulse 60 MON; Pulse Ox 98% ; mv5 04:45 BP 126 / 60 (auto/); mv5 04:46 Pulse 60 MON; Pulse Ox 98% ; mv5 05:00 BP 122 / 60 (auto/); mv5 05:01 Pulse 58 MON; Pulse Ox 98% ; mv5 05:15 BP 133 / 60 (auto/); mv5 05:16 Pulse 58 MON; Pulse Ox 98% ; mv5 05:33 BP 149 / 70 (auto/); mv5 05:34 Pulse 64 MON; Pulse Ox 98% ; mv5 05:45 BP 151 / 73 (auto/); mv5 05:46 Pulse 66 MON; Pulse Ox 98% ; mv5 06:00 BP 173 / 78 (auto/); mv5 06:01 Pulse 70 MON; Pulse Ox 97% ; mv5 06:15 BP 144 / 65 (auto/); mv5 06:15 Pulse 68 MON; Pulse Ox 97% ; mv5 06:30 BP 155 / 85 (auto/); mv5 06:30 Pulse 72 MON; Pulse Ox 98% ; mv5 06:45 BP 145 / 67 (auto/); mv5 06:45 BP 145 / 67; Pulse 66 MON; Resp 18; Temp 96.5; Pulse Ox 96% ; mv5 10/21 23:23 Body Mass Index 28.21 (61.23 kg, 147.32 cm) lr2 Vitals: 10/21 23:23 Log In Time: October 21, 2016 at 23:22. lr2 ED Course: 23:23 Patient visited by Abida Mays. lr2 23:23 Patient moved to Waiting lr2 23:25 Mora Valdez,RN is Primary Nurse. lr2 23:25 Patient moved to 10 lr2 23:29 Patient visited by Estephanie Garcia,GONZALO. lf1 23:31 Gaby Nolasco DO is Attending Physician. cs11 23:31 Pt greeted and oriented to ED. Patient advised of names of staff involved in care, raysa location of call bear, wait times and NPO status. Accompanied by Family Member, Patient has correct armband on for positive identification. Placed in gown. Bed in low position. Call light in reach. Side rails up X2. secured entrance monitor on. Pulse ox on. NIBP on. 23:31 EKG done. (by ED staff). Reviewed by Gaby Nolasco DO. raysa 23:32 Patient visited by Gaby Nolasco DO. cs11 23:32 Patient visited by Keli Kern PCA. raysa 23:32 Triage Initiated lf1 23:41 Cardiac Marker Panel Sent. mv5 23:41 Pt & Aptt Sent. mv5 23:41 MED Profile Sent. mv5 23:41 CBC Sent. mv5 10/22 00:08 Patient visited by Mora Valdez RN. mv5 00:34 The patient / caregiver is instructed regarding the plan of care and ED course. mv5 00:34 Inserted saline lock: 20 gauge in left antecubital area and blood collected. The mv5 patient tolerated the procedure well. 00:50 Patient visited by Mora Valdez RN. mv5 01:01 Chest, 1 View Returned. EDMS 01:20 Patient visited by Mora Valdez RN. mv5 01:32 Patient moved to OBSERVATION cs11 03:31 Patient visited by Keli Kern PCA. raysa 03:31 EKG done. (by ED staff). Reviewed by Gaby Nolasco DO. raysa 04:06 CARDIAC MARKER PANEL Sent. cln 04:15 [facility] [place] Payment Agreement was scanned into [employer] and attached to record. hs2 06:40 Inserted saline lock: 20 gauge in left antecubital area The patient tolerated the mv5 procedure well. 06:45 No procedures done that require assistance. mv5 08:11 EKG-ADULT Returned. EDMS 08:11 ECG WITH READING ER PHYS Returned. EDMS 13:19 T-Sheet-- Draft Copy was scanned into [employer] and attached to record. gb 13:19 ECG/EKG was scanned into [employer] and attached to record. gb Administered Medications: 10/21 23:57 Drug: Aspirin 324 mg [aspirin 81 mg chewable tablet (4 tabs)] Route: PO; mv5 10/22 02:21 Follow up: Response: No Adverse Reaction 5 10/21 23:57 Drug: Nitro-Bid 0.5 inches [Nitro-Bid 2 % transdermal ointment (0.5 inches)] Route: mv5 Transdermal; Site: anterior chest wall; 23:57 Drug: Metoprolol 25 mg [metoprolol tartrate 25 mg tablet (1 tabs)] Route: PO; mv5 10/22 02:21 Follow up: Response: No Adverse Reaction 5 10/21 23:57 Drug: morphine 2 mg [morphine 2 mg/mL intravenous cartridge (1 mL)] Route: IVP; Site: mv5 left antecubital; 10/22 02:21 Follow up: Response: No Adverse Reaction mv5 04:00 Drug: heparin (Thrombolytic Protocol, 60 units/kg)) 3600 units [heparin (porcine) 5,000 mv5 unit/mL injection solution (0.72 mL)] {Co-Signature: kc3 (Rebecca Bustamante RN).} Route: IVP; Site: left antecubital; 04:00 Drug: heparin (Thrombolytic Protocol, 12 units/kg/hr)) 27042 units [heparin (porcine) mv5 25,000 unit/250 mL (100 unit/mL) in dextrose 5 % IV] {Co-Signature: kc3 (Rebecca Bustamante RN).} Route: IV; Rate: 730 units/hr; Site: left antecubital; Order Results: Lab Order: CBC; SPEC'M 10/21/16 23:40 Test: WHITE BLOOD COUNT; Value: 7.9; Range: 4.0-10.0; Units: K/mm3; Status: F Test: RED BLOOD COUNT; Value: 4.33; Range: 4.00-5.40; Units: M/mm3; Status: F Test: HEMOGLOBIN; Value: 13.6; Range: 12.0-16.0; Units: g/dl; Status: F Test: HEMATOCRIT; Value: 39.1; Range: 36.0-47.0; Units: %; Status: F Test: MEAN CORPUSCULAR VOLUME; Value: 90.3; Range: 80.0-96.0; Units: fl; Status: F Test: MEAN CORPUSCULAR HEMOGLOBIN; Value: 31.3; Range: 27.0-33.0; Units: pg; Status: F Test: MEAN CORPUSCULAR HGB CONC; Value: 34.7; Range: 32.0-36.5; Units: g/dl; Status: F Test: RED CELL DISTRIBUTION WIDTH; Value: 12.9; Range: 11.5-14.5; Units: %; Status: F Test: PLATELET COUNT, AUTOMATED; Value: 333; Range: 150-450; Units: k/mm3; Status: F Lab Order: MED Profile; SPEC'M 10/21/16 23:40 Test: GLUCOSE, FASTING; Value: 116; Range: 83-110; Abnormal: Above high normal; Units: MG/DL; Status: F Test: BLOOD UREA NITROGEN; Value: 17; Range: 7-18; Units: MG/DL; Status: F Test: CREATININE FOR GFR; Value: 0.81; Range: 0.55-1.02; Units: MG/DL; Status: F Test: GLOMERULAR FILTRATION RATE; Value: > 60.0; Range: >32; Status: F Test: SODIUM LEVEL; Value: 139; Range: 136-145; Units: MEQ/L; Status: F Test: POTASSIUM SERUM; Value: 3.9; Range: 3.5-5.1; Units: MEQ/L; Status: F Test: CHLORIDE LEVEL; Value: 103; Range: 98-107; Units: MEQ/L; Status: F Test: CARBON DIOXIDE LEVEL; Value: 25; Range: 21-32; Units: MEQ/L; Status: F Test: ANION GAP; Value: 11; Range: 8-16; Units: MEQ/L; Status: F Test: CALCIUM LEVEL; Value: 9.3; Range: 8.8-10.2; Units: MG/DL; Status: F Test Note: ; Units are mL/min/1.73 m2 Chronic Kidney Disease Staging per NKF: Stage I & II GFR >=60 Normal to Mildly Decreased Stage III GFR 30-59 Moderately Decreased Stage IV GFR 15-29 Severely Decreased Stage V GFR <15 Very Little GFR Left ESRD GFR <15 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 Lab Order: Pt & Aptt; SPEC'M 10/21/16 23:40 Test: PROTHROMBIN TIME; Value: 13.3; Range: 12.3-14.5; Units: SECONDS; Status: F Test: INR; Value: 1.00; Status: F Test: PARTIAL THROMBOPLASTIN TIME; Value: 31.7; Range: 26.6-37.1; Units: SECONDS; Status: F Test Note: ; THERAPUTIC HUMAN INR VALUES INDICATIONS NORMAL RANGES PROPHYLAXIS/TREATMENT OF: VENOUS THROMBOSIS 2.0-3.0 PULMONARY EMBOLISM 2.0-3.0 PREVENTION OF SYSTEMIC EMBOLISM FROM: TISSUE HEART VALVES 2.0-3.0 ACUTE MYOCARDIAL INFARCTION 2.0-3.0 VALVULAR HEART DISEASE 2.0-3.0 ATRIAL FIBRILLATION 2.0-3.0 MECHANICAL VALVES(HIGH RISK) 2.5-3.5 RECURRENT MYOCARDIAL INFARCTION 2.5-3.5 Lab Order: Cardiac Marker Panel; SPEC'M 10/21/16 23:40 Test: CPK CREATINE PHOSPHOKINASE; Value: 55; Range: 26-192; Units: U/L; Status: F Test: CK-MB VALUE MASS; Value: 1.0; Range: 0.0-3.6; Units: NG/ML; Status: F Test: MB/CK RELATIVE INDEX; Value: 1.81; Range: < OR =4; Status: F Test: TROPONIN I; Value: < 0.02; Range: < 0.10; Units: NG/ML; Status: F Test Note: ; DIAGNOSIS CRITERIA MMB ng/ml Relative Index (RI) NON-AMI < or = 5 N/A ESTRADA ZONE > 5 < or = 4 AMI > 5 > 4 Lab Order: CARDIAC MARKER PANEL; SPEC' 10/22/16 04:04 Test: CPK CREATINE PHOSPHOKINASE; Value: 47; Range: 26-192; Units: U/L; Status: F Test: CK-MB VALUE MASS; Value: 1.2; Range: 0.0-3.6; Units: NG/ML; Status: F Test: MB/CK RELATIVE INDEX; Value: 2.55; Range: < OR =4; Status: F Test: TROPONIN I; Value: < 0.02; Range: < 0.10; Units: NG/ML; Status: F Test Note: ; DIAGNOSIS CRITERIA MMB ng/ml Relative Index (RI) NON-AMI < or = 5 N/A ESTRADA ZONE > 5 < or = 4 AMI > 5 > 4 Radiology Order: EKG-ADULT Test: EKG-ADULT REASON FOR EXAMINATION: Chest Pain; Stationary ECG Study; [facility] - ED; ; Test Date: 2016-10-21; Pat Name: GENEVA BENNETT Department:; Room: -; Gender: F 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: rl; : 1935 Requested By: GABY NOLASCO; Order Number: [id number] Melida MD: Luana Warren; Measurements; Intervals [place]; Rate: 96 P: 21; MI: 161 QRS: -27; QRSD: 94 T: 85; QT: 372; QTc: 472; Interpretive Statements; SINUS RHYTHM; BORDERLINE LEFT AXIS DEVIATION; NONSPECIFIC ST T-WAVE ABNORMALITY; ?PRIOR INFERIOR INFARCT; LESS PRONOUNCED STT CHANGES COMPARED 10/02/16; Electronically Signed On 10-22-2016 7:52:48 EST by Luana Warren; Radiology Order: Chest, 1 View Test: Chest, 1 View REASON FOR EXAMINATION: Chest Pain; Clinical: Chest pain .; ; Comparison: 10/01/2016 .; ; Findings:; The mediastinum and cardiac silhouette are stable and within normal limits for; portable technique. The lung garcia are clear without acute consolidation,; effusion, or pneumothorax. Skeletal structures are intact.; ; Impression:; Normal portable chest x-ray; ; ; Signed by; Leonard Tapia MD 10/22/2016 12:45 A; Radiology Order: ECG WITH READING ER PHYS Test: ECG WITH READING ER PHYS REASON FOR EXAMINATION: CHEST PAIN; Stationary ECG Study; [facility] - ED; ; Test Date: 2016-10-22; Pat Name: GENEVA BENNETT Department:; Room: -; Gender: F Psychiatric 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: [email or web address]; : 1935 Requested By: GABY NOLASCO; Order Number: [id number] Reading MD: Luana Warren; Measurements; Intervals [place]; Rate: 66 P: 9; MI: 173 QRS: -25; QRSD: 95 T: 123; QT: 423; QTc: 444; Interpretive Statements; SINUS RHYTHM; BORDERLINE LEFT AXIS DEVIATION; ST DEVIATION AND MODERATE T-WAVE ABNORMALITY, CONSIDER ANTEROLATERAL; ISCHEMIA,; CLINICAL CORRELATION, MORE PRONOUNCED COMPARED 10/21/16 23:31; ; Electronically Signed On 10-22-2016 7:57:13 EST by Luana Warren; Outcome: 05:41 ER care complete, transfer ordered by Provider. cs11 06:45 Discharge Assessment: Patient awake, alert and oriented x 3. No cognitive and/or mv5 functional deficits noted. Patient verbalized understanding of disposition instructions. patient administered narcotics - yes. Patient was admitted to the hospital or transferred to another facility. The following High Risk Discharge criteria are identified: None. Transferred to [facility]. by EMS ground. Condition: stable. No special radiology studies were completed. Property :Personal belongings accompany Pt. 06:55 Patient left the ED. mv5 Signatures: Dispatcher [employer] EDMS Huyen Rowell, Reg Reg gb Estephanie Garcia,RN RN lf1 Keli Kern, NET WPF DEVELOPER NET WPF DEVELOPER Gaby Herron, DO DO cs11 Shari Abrams, Reg Reg hs2 Opal Kelley, NET WPF DEVELOPER NET WPF DEVELOPER Abida Nguyen lr2 Mora Valdez RN RN mv5 Rebecca Bustamante RN kc3 Chart Complete MTDD
== END 2016-10-22 06:55 | disposition short-term general hospital (02) ==
LOC: M ED 23:22
DX: I20.0 Unstable angina (principal); Z95.5 Presence of coronary angioplasty implant and graft; I10 Essential (primary) hypertension; K21.9 Gastro-esophageal reflux disease without esophagitis; E03.9 Hypothyroidism, unspecified; E78.00 Pure hypercholesterolemia, unspecified; Z79.899 Other long term (current) drug therapy; Z79.82 Long term (current) use of aspirin

== ENCOUNTER → 2016-12-04 | Outpatient (REF) | payer OTHER, MEDICAID ==
[2016-12-04 13:29] LABS: INR 2.92
== END ==
LOC: M LAB REF 13:04
PROVIDERS: ATTEND Internal Medicine
DX: Z95.5 Presence of coronary angioplasty implant and graft (principal); Z79.01 Long term (current) use of anticoagulants

== ENCOUNTER 2017-01-03 10:19 | Outpatient (RCR) | payer OTHER, MEDICAID ==
[2017-01-07] MEDS ORDERED: METO50TA2 PO (16:26)
[2017-01-07] MEDS ORDERED: FOLI1TAB2 PO (16:26)
[2017-01-07] MEDS ORDERED: LISI10TA4 PO (16:46)
[2017-01-07] MEDS ORDERED: FURO40TA2 PO (16:46)
[2017-01-07] MEDS ORDERED: LEVO75TA4 PO (21:22)
[2017-01-07] MEDS ORDERED: NITR0.4S14 SL (21:27)
[2017-01-07] MEDS ORDERED: ASPI1TAB PO (21:27)
[2017-01-07] MEDS ORDERED: TYLE325T5 PO (21:27)
[2017-01-07] MEDS ORDERED: VITA-130 PO (21:27)
[2017-01-07] MEDS ORDERED: STOO100C PO (21:27)
[2017-01-10] MEDS ORDERED: ELIQ5TAB PO (12:19)
[2017-01-15] MEDS ORDERED: LISI-542 PO (09:21)
[2017-01-15] MEDS ORDERED: SPIR25TA2 PO (09:21)
[2017-01-15] MEDS ORDERED: AMIO20TA PO (09:21)
== END 2017-01-23 ==
LOC: M CR 10:19
PROVIDERS: ATTEND Nurse Practitioner Family
DX: Z51.89 Encounter for other specified aftercare (principal); Z95.1 Presence of aortocoronary bypass graft

== ENCOUNTER 2017-01-07 16:01 | Inpatient (IN) | payer OTHER, MEDICAID ==
[~2017-01-07] VITALS: Ht 147.3 cm; Wt 58.0 kg
[2017-01-07] MEDS ORDERED: METO50TA2 PO (16:26)
[2017-01-07] MEDS ORDERED: FOLI1TAB2 PO (16:26)
[2017-01-07] MEDS ORDERED: LISI10TA4 PO (16:46)
[2017-01-07] MEDS ORDERED: FURO40TA2 PO (16:46)
[2017-01-07 16:56] LABS: BASO % 0.2 % (0.0-1.0); EOS # 0.2 K/mm3 (0.0-0.50); EOS % 1.2 % (0.0-3.0); LARGE UNSTAINED CELL # 0.2 K/mm3 (0.0-0.4); LARGE UNSTAINED CELL % 1.3 % (0.0-4.0); LYMPH # 1.8 K/mm3 (1.5-4.5); LYMPH % 11.9 % (24.0-44.0); MEAN CORPUSCULAR HEMOGLOBIN 32.2 pg (27.0-33.0); MEAN CORPUSCULAR HGB CONC 33.7 g/dl (32.0-36.5); MEAN CORPUSCULAR VOLUME 95.5 fl (80.0-96.0); MONO # 0.9 K/mm3 (0.0-0.8); NEUTROPHILS # 11.8 K/mm3 (1.8-7.7); NEUTROPHILS % 79.4 % (36.0-66.0); PLATELET COUNT, AUTOMATED 284 k/mm3 (150-450); RED CELL DISTRIBUTION WIDTH 13.4 % (11.5-14.5); WHITE BLOOD COUNT 14.9 K/mm3 (4.0-10.0)
[2017-01-07] MEDS: METOPROLOL 5 MG/5 ML VIAL IV SCH ×5 (17:02→17:20)
--- NOTE | 2017-01-07 17:16 | REP ---
Clinical: Chest pain . Comparison: 10/22/2016 . Findings: The mediastinum and cardiac silhouette are stable and mild cardiomegaly is again suggested. Evidence of prior sternotomy and CABG. The lung garcia demonstrate chronic changes without acute consolidation, effusion, or pneumothorax. Skeletal structures demonstrate age-related degenerative changes to the thoracic spine and bilateral shoulders. Impression: No acute cardiopulmonary process. Signed by Leonard Tapia MD 01/07/2017 05:08 P
[2017-01-07 17:18] LABS: ANION GAP 10 MEQ/L (8-16); BLOOD UREA NITROGEN 12 MG/DL (7-18); CARBON DIOXIDE LEVEL 26 MEQ/L (21-32); CHLORIDE LEVEL 99 MEQ/L (98-107); GLOMERULAR FILTRATION RATE > 60.0 (>32); GLUCOSE, FASTING 163 MG/DL (83-110); MAGNESIUM LEVEL 1.7 MG/DL (1.8-2.4); PHOSPHORUS LEVEL 3.8 MG/DL (2.5-4.9); POTASSIUM SERUM 3.4 MEQ/L (3.5-5.1); SODIUM LEVEL 135 MEQ/L (136-145)
[2017-01-07 17:33] LABS: INR 1.23
[2017-01-07] MEDS ORDERED: MAGNESIUM OXIDE 400 MG TAB (MAG-OX) PO ONE (18:00)
[2017-01-07] MEDS ORDERED: POTASSIUM CHLORIDE 10 MEQ SR TABLET PO ONE (21:15)
[2017-01-07] MEDS ORDERED: LEVO75TA4 PO (21:22)
[2017-01-07] MEDS ORDERED: DIGOXIN INJ 0.5 MG/2 ML AMP (J1160) IV STA (21:23)
[2017-01-07] MEDS ORDERED: STOO100C PO (21:27)
[2017-01-07] MEDS ORDERED: ASPI1TAB PO (21:27)
[2017-01-07] MEDS ORDERED: VITA-130 PO (21:27)
[2017-01-07] MEDS ORDERED: NITR0.4S14 SL (21:27)
[2017-01-07] MEDS ORDERED: TYLE325T5 PO (21:27)
[2017-01-07] MEDS ORDERED: ACETAMINOPHEN TAB 650MG DOSE (2X325MG) PO PRN (21:30)
[2017-01-07] MEDS ORDERED: NITROGLYCERIN 0.4 MG SUBL TABLET SL PRN (21:30)
[2017-01-07] MEDS: FAMOTIDINE 20 MG TAB PO SCH (22:15)
[2017-01-07] MEDS: DOCUSATE SODIUM 100 MG CAP PO SCH (22:15)
[2017-01-07] MEDS: MAG SULF 1GM/100ML (MAG RUN) 1 GM in APPROPRIATE DILUENT 1 EA IV SCH ×2 (22:17→23:21)
[2017-01-07 23:08] LABS: FREE T4 1.86 NG/DL (0.76-1.46)
--- NOTE | 2017-01-08 05:47 | HPE ---
DATE OF ADMISSION: 01/07/2017 Primary care provider: Dr. Dodge HISTORY OF PRESENT ILLNESS: This patient is an 81 year old female with a past medical history significant for myocardial infarction, coronary artery disease status post stent and coronary artery bypass graft, hyperthyroidism, hypertension, hypercholesterolemia, gastroesophageal reflux disease presented to [facility] on 01/07/2017 for chest pain. Patient stated around 2 p.m. she woke up from a nap, patient experienced sharp mid chest pain with radiation, patient also felt dizzy and patient was brought to [facility] for further evaluation. In the ED patient was found to have atrial fibrillation with rapid ventricular response. One dose of metoprolol was given and patients heart rate converted back to sinus briefly, and later patients heart rate converted back to atrial fibrillation and the hospitalist team was called for admission. Patient has a history of coronary artery disease and patient was hospitalized at [facility] in the beginning of September 2016. During that hospitalization stay patient had two stent placements. Approximately 2-3 weeks later, patient complained about cardiac issue and patient was transferred to [facility] to [facility] in the beginning of October and during that hospitalization stay, patient had open heart surgery and patient had coronary artery bypass graft times three. Approximately in the middle of October patient had atrial fibrillation and patient was started on anticoagulation and rate control on medication. A few months later, the patient was seen by primary care provider and patient was found to be in sinus rhythm and warfarin was discontinued. In the emergency room patient was found to have atrial fibrillation and 5 mg of IV metoprolol was given and patients rhythm converted back to sinus shortly after. Shortly after patients rhythm converted to sinus, patients chest pain also resolved. ALLERGIES: No known drug allergies. MEDICAL HISTORY: Gastroesophageal reflux disease, hyperthyroidism, hypertension , coronary artery disease status post coronary artery bypass graft and cardiac stent PAST SURGICAL HISTORY: Open heart surgery in October 2016, hysterectomy, coronary artery stent placement in September 2016. SOCIAL HISTORY: Denies smoking. Denies alcohol. Denied recreational drug use. Code status: Patient DO NOT RESUSCITATE, DO NOT INTUBATE. MOLST form is updated today. HOME MEDICATIONS: - Tylenol 650 mg by mouth every 6 hours as needed - Vitamin C 500 by mouth daily - aspirin 81 mg by mouth daily - docusate sodium 100 mg by mouth at bedtime - folic acid 1 mg by mouth daily - Lasix 40 mg by mouth daily - Synthroid 75 mcg by mouth daily - Lisinopril 10 mg by mouth daily - Metoprolol tartrate 50 mg by mouth two times a day - nitroglycerin 0.4 mg sublingual as needed for chest pain - pravastatin 80 mg by mouth daily - ranitidine 1 tablet by mouth bid REVIEW OF SYSTEMS: General: No fever, no chills. HEENT: No vision change, no auditory changes. CARDIOVASCULAR: Patient has acute sharp chest pain, started at 2 p.m. today without radiation. Patient has history of coronary artery disease status post two stent placements and coronary artery bypass graft times three. Patient also had atrial fibrillation started in October 2016. Patient was on anticoagulation and rate control medication in the past. RESPIRATORY: Denies any shortness of breath or cough. No sputum production. GASTROINTESTINAL: No nausea, no melena, no abdominal pain, no diarrhea. NEUROLOGIC: No numbness or tingling. MUSCULOSKELETAL: No muscle pain or joint pain. OBJECTIVE: VITAL SIGNS: Temperature is 97.6, pulse is 75, respirations rate is 20, blood pressure is 121/50, pulse oximetry 97% with 2 liters nasal cannula. Patients pulses show continuous fluctuation during the 30 minute encounter. Patients heart rate between 80 to 130s GENERAL: Fatigue, no sign of acute distress. Alert and oriented times three. HEENT; Normocephalic, atraumatic, extraocular motor grossly intact. CARDIOVASCULAR: Irregularly irregular, positive S1, S2. Positive systolic murmur. At the time of encounter patient had atrial fibrillation with heart rate around 130s. There is surgical scar right in the middle across the sternum. RESPIRATORY: Clear to auscultation bilaterally. I could not appreciate any wheezes or rhonchi. ABDOMEN: Soft, non tender, non distended, bowel sounds present, no rebound or guarding. EXTREMITIES: I could not appreciate any significant lower extremity edema. No sign of cyanosis. NEUROLOGICAL: Sensation to fine touch grossly intact. Muscle strength 5/5. LABORATORY DATA: White blood cell count is 14.9, hemoglobin 12.4, hematocrit 36.9, platelet count is 284. Sodium 135, potassium 3.4, chloride is 99, carbon dioxide 26, BUN 12, creatinine 0.9. GFR greater than 60. Fasting glucose 163, calcium 9, phosphorous 3.8, magnesium 1.7, troponin I is 0.04. BNP is 1,300. TSH is 5.01. PT is 15.6, INR is 1.23. IMAGING: Chest x-ray showed no acute cardiopulmonary processes. ASSESSMENT AND PLAN: 1. Atrial fibrillation. 2. Coronary artery disease status post cardiac stent times 2 and coronary artery bypass graft times three. 3. History of hyperthyroidism. 4. History of hypertension. 5. Gastroesophageal reflux disease. PLAN: Patient will be admitted to the PCU under inpatient status. Patient is currently converting between atrial fibrillation and sinus rhythm. Patient has a very soft blood pressure systolic running around 100. I discussed the case with cardiology, Dr. Davis, he will be consulted and patient was started on Digoxin 0.5 mg times 1. Patient was observed for the next few hours. An additional 02.5 mg IV will be given in a few hours if patient continues to be in atrial fibrillation. Patient was started on Eliquis for anticoagulation. Patient will continue on aspirin and pravastatin. Lisinopril and metoprolol will be on hold due to very soft blood pressure at this moment. Patient will have cardiac echocardiogram done tomorrow. DVT prophylaxis patient will be on Eliquis. [facility]
[2017-01-08] MEDS ORDERED: ENTER DRUG NAME HERE (PATIENT'S OWN MED) PO SCH (06:00)
[2017-01-08] MEDS: LEVOTHYROXINE SODIUM 0.0625 MG 1/2 TAB (62.5MCG) PO SCH (06:18)
--- NOTE | 2017-01-08 06:37 | ECGEPIP ---
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 : 1935 Requested By: Geronimo Saldana Order Number: [id number] Reading MD: Geronimo Saldana Measurements Intervals [place] Rate: 165 P: [place]: 0 QRS: -54 QRSD: 102 T: 121 QT: 294 QTc: 488 Interpretive Statements ATRIAL FIBRILLATION WITH RAPID VENTRICULAR RESPONSE WITH ABERRANT CONDUCTION OR VENTRICULAR PREMATURE COMPLEXES LAD LEFT ANTERIOR FASCICULAR BLOCK ANTEROLATERAL MYOCARDIAL INFARCTION, OF INDETERMINATE AGE NONSPECIFIC ST T WAVE CHANGES CW 10/22/16 - RATE INCREASED RHYTHM CHANGE NEW ANTEROLATERAL MYOCARDIAL INFARCTION OF INDETERMINATE AGE Electronically Signed On 01-08-2017 6:37:30 EDT by Geronimo Saldana
--- NOTE | 2017-01-08 06:39 | ECGEPIP ---
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
[2017-01-08 07:06] LABS: MEAN CORPUSCULAR HEMOGLOBIN 32.3 pg (27.0-33.0); MEAN CORPUSCULAR HGB CONC 34.3 g/dl (32.0-36.5); MEAN CORPUSCULAR VOLUME 94.2 fl (80.0-96.0); RED CELL DISTRIBUTION WIDTH 13.4 % (11.5-14.5); WHITE BLOOD COUNT 10.7 K/mm3 (4.0-10.0)
[2017-01-08 07:27] LABS: ANION GAP 8 MEQ/L (8-16); BLOOD UREA NITROGEN 14 MG/DL (7-18); CALCIUM LEVEL 8.4 MG/DL (8.8-10.2); CARBON DIOXIDE LEVEL 26 MEQ/L (21-32); CHLORIDE LEVEL 103 MEQ/L (98-107); CREATININE FOR GFR 0.79 MG/DL (0.55-1.02); GLOMERULAR FILTRATION RATE > 60.0 (>32); GLUCOSE, FASTING 114 MG/DL (83-110); MAGNESIUM LEVEL 2.2 MG/DL (1.8-2.4); POTASSIUM SERUM 3.8 MEQ/L (3.5-5.1); SODIUM LEVEL 137 MEQ/L (136-145)
[2017-01-08 08:00] VITALS: BP 135/75
--- NOTE | 2017-01-08 08:41 | ECGEPIP ---
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
[2017-01-08] MEDS: FAMOTIDINE 20 MG TAB PO SCH ×2 (09:25→20:36)
[2017-01-08] MEDS: FUROSEMIDE 40 MG TAB PO SCH (09:25)
[2017-01-08] MEDS: ASPIRIN 81 MG ENTERIC TAB PO SCH (09:25)
[2017-01-08] MEDS: FOLIC ACID 1 MG TAB PO SCH (09:25)
[2017-01-08] MEDS: APIXABAN 5 MG TAB (ELIQUIS) PO SCH ×2 (09:25→20:37)
[2017-01-08] MEDS: PRAVASTATIN 20 MG TAB PO SCH (09:25)
[2017-01-08] MEDS: ASCORBIC ACID 500 MG TAB PO SCH (09:26)
[2017-01-08] MEDS: METOPROLOL TART 50 MG TAB PO SCH ×2 (09:26→20:37)
[2017-01-08 12:00] VITALS: BP 121/66
[2017-01-08 16:00] VITALS: BP 135/63
--- NOTE | 2017-01-08 16:13 | IPN ---
DATE: 01/08/2017 SUBJECTIVE: The patient tells me that she is feeling well at this time. She tells me she is not having any chest pain or shortness of breath. She denies any fevers, chills, lightheadedness or dizziness. OBJECTIVE: VITAL SIGNS: Temperature 98.3, pulse 91 and regular, respiratory rate 18, blood pressure 135/75, oxygen saturation 95% on 2 liters nasal cannula. GENERAL: She is a fair, nahomy female laying flat in bed. She does not appear to be in any acute distress whatsoever. HEENT: Cranial nerves II-XII are grossly intact. She has moist mucous membranes. No elevation of central venous pressure. CARDIOVASCULAR EXAMINATION: S1 S2. Appears regular at this time. RESPIRATORY EXAMINATION: Clear. She has a well-healed midline sternal incision which is healing well. ABDOMINAL EXAMINATION: Bowel sounds are present. Abdomen is soft. EXTREMITIES: No appreciable clubbing, cyanosis or edema. LABORATORY STUDIES: WBC 10.7, down from 14.9, hemoglobin 11.5, hematocrit 33.4, platelet count 259. Chemistry panel: Sodium 137, potassium 3.8, chloride 103, bicarbonate 26, BUN 14, creatinine 0.7. Troponin 0.2, down from 0.22, which had peaked. Purine nucleoside phosphorylase (PNP) was elevated at 1300. Thyroid stimulating hormone (TSH) was slightly elevated at 5.0. Free T4 was slightly elevated at 1.86. The patient had a chest x-ray that revealed no acute cardiopulmonary process. ASSESSMENT AND PLAN: This is an 81-year-old female with paroxysmal atrial fibrillation. PROBLEMS: 1. Paroxysmal atrial fibrillation. Patient was seen and evaluated by Dr. Mendieta of cardiology. We are currently awaiting his recommendations. Patient recently underwent coronary stenting as well as coronary artery bypass graft (CABG) and she is a postoperative atrial fibrillation; however, she remained in sinus rhythm following this and as such, was discontinued off her anticoagulation. At the time, it appears as though she did convert back to atrial fibrillation at the time of admission and at this time was converted back into sinus. For the time being, she is rate controlled with Lopressor 50 mg by mouth twice a day. She is on aspirin 81 mg daily as well as Eliquis 5 mg by mouth twice a day. Will defer to Dr. Mendieta for any further recommendations. 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 Pending Dr. Mendieta's evaluation, she may be able to be dispositioned as early as tomorrow. Please note that an echocardiogram has been ordered. We are awaiting the results. 2. Elevated brain natriuretic peptide (BNP). The patient is on Lasix 40 mg by mouth daily. She does not appear to be grossly overloaded; however, she may have some mild decompensation. She is on a beta edda. She is on aspirin. She is on a statin. 3. Coronary artery disease. She is on aspirin, beta edda and statin. 4. Gastroesophageal reflux disease. She is on Pepcid. 5. Constipation. She is on Colace. 6. Hypothyroidism. She is continued on Synthroid. Her TSH and Free T4 levels are slightly abnormal. Recommend outpatient followup with her primary care provider regarding this. 7. Vitamin C deficiency. Will continue her on her anticoagulation. 8. Deep venous thrombosis (DVT) prophylaxis. Patient is on Eliquis. A Patient and Family Services (PFS) consult will be place for prior authorization in obtaining, after Dr. Mendieta has seen the patient.
[2017-01-08] MEDS ORDERED: ONDANSETRON 4MG/2ML VIAL (J2405) IV PRN (18:00)
[2017-01-08] MEDS ORDERED: BISACODYL 5 MG TAB PO PRN (18:00)
[2017-01-08 20:00] VITALS: BP 158/72
[2017-01-08] MEDS: DOCUSATE SODIUM 100 MG CAP PO SCH (20:36)
--- NOTE | 2017-01-08 23:31 | CR ---
DATE OF CONSULTATION: 01/07/2017 REFERRING PHYSICIAN: Dr. Webster INDICATION: Atrial fibrillation, chest pain. HISTORY OF PRESENT ILLNESS: Mrs. March is previously unknown to me. She is a pleasant 81-year-old female who presented to [facility] yesterday because of chest discomfort. Apparently she was woken up from sleep by the pain , and eventually the ambulance was called by one of her sons. Unfortunately, she is a very poor historian and only very limited history is obtainable from the patient. I got most of the history from admission note. The patient herself at the time of my evaluation tells me that she is feeling comfortable. She denied any chest discomfort today. Even though when she came yesterday she was found to be in atrial fibrillation with rapid ventricular response, she had no awareness of arrhythmias. PAST MEDICAL HISTORY: The patient has established coronary artery disease. She underwent coronary artery intervention percutaneously in September 2016 and apparently about 3-4 weeks later underwent coronary artery bypass grafting at [facility] in [place]. She received three-vessel coronary artery bypass graft (CABG). I do not have any records available. In the postoperative period, she had atrial fibrillation and was briefly anticoagulated but then the anticoagulation was discontinued as there was no recurrence. Her past medical history is also positive for this gastroesophageal reflux disease (GERD), hypothyroidism, hypertension and dyslipidemia. Surgical history is positive for CABG and hysterectomy. SOCIAL HISTORY: The patient is a . She lives alone, but she has children living nearby and very attentive. There is no history of smoking and no alcohol. HOME MEDICATIONS: - Tylenol as needed - vitamin C 500 mg a day - aspirin 81 mg daily - Colace 100 mg at bedtime - folic acid 1 mg a day - Lasix 40 mg a day - Plavix 75 mg a day - lisinopril 10 mg a day - metoprolol 50 mg twice a day - nitroglycerin 0.4 - pravastatin 80 mg - ranitidine REVIEW OF SYSTEMS: She denies any history of recent fever, chills, nausea, vomiting and diarrhea. She denies having similar chest discomfort recently. She denies any palpitations. She denies any syncope. There is no history of bleeding problems. No nausea, no vomiting. No genitourinary symptoms. No peripheral edema. She has chronic arthritis changes. The rest of review of system is negative. PHYSICAL EXAMINATION: Mrs. March is a rather delightful elderly female. She appears to be in no distress in emergency room bed and appears comfortable. Blood pressure this morning was 135/75, heart rate was in 80s. She was afebrile. Saturation was 95% on 2 liters of oxygen. Her fluid balance was slightly negative. Weight was documented at 50 kg. She was alert and oriented times three. Her jugular venous pressure (JVP) did not appear elevated. Lungs are clear to auscultation with good air movement. Heart: Exam reveals regular rhythm. No gallop or rub is noted. There is a rather quiet murmur at the base. I do not appreciate more than maybe 1/6 intensity. No gallop. Median sternotomy scar is well healed. Abdomen is soft, nontender. No hepatosplenomegaly. No peripheral edema. Peripheral pulses are preserved. Neurologically, she is intact even though there is generalized weakness. I do not appreciate any focal signs. I did not formally test her deep tendon reflexes. LABORATORY AND X-RAY DATA: She has three ECGs on file. The initial one revealed atrial fibrillation with ventricular rate 165 beats per minute. It looks suspicious for old inferior and anterior wall myocardial infarction with poor R-wave progression and nonspecific repolarization abnormalities. The second EKG ordered reveals sinus mechanism with ventricular rate 69 beats per minute and with essentially resolution of repolarization abnormalities, but the evidence for old anterior inferior infarction is still present. Finally, her third EKG remains to be sinus rhythm with unchanged QRS morphology, but there were evolving T-wave inversions in lead I and aVL. Chest x-ray reveals sternotomy, borderline cardiomegaly. I do not appreciate any distinct infiltrate or congestive heart failure. Laboratory Data: Basic metabolic panel is normal, GFR calculated more than 60, glucose 114. She had three sets of cardiac enzymes and peaked at 0.022. Her BNP was 1300. TSH 5.0. CBC revealed hemoglobin 11.5, hematocrit 33 and platelet count 259,000. ASSESSMENT AND PLAN: Mrs. March is an 81-year-old female who underwent coronary bypass surgery in October 2016 after what appears to me a presentation with either myocardial infarction or acute coronary syndrome about a month earlier and probably unsuccessful revascularization with percutaneous coronary intervention (PCI). She had postoperative atrial fibrillation and now she presents with relapse with rapid ventricular response presenting as chest pain. There are no convincingly ischemic abnormalities on EKG even though there are some repolarization abnormalities that could represent ischemia. Troponin is marginally elevated. She converted back to sinus mechanism just with administration of chronic beta edda, but later relapsed and eventually converted back again after she received a total of 0.75 mg of digoxin. She has been in sinus rhythm since approximately 2 o'clock at night. She already was started on anticoagulation with full dose of apixaban. I think it is acceptable considering her normal renal function even though with her age and borderline weight, reduced dose is probably equally acceptable. As far as the long-term management is concerned, I have primarily want to obtain records from [facility] and will obtain an echocardiogram. I believe that she probably will have to be chronically anticoagulated, and the choice of apixaban seems appropriate. If there is no relapse of atrial fibrillation, I would continue beta blockers only. If there is relapse, then we may utilize some form of antiarrhythmics, most likely amiodarone. As far as chest pain is concerned, I do not believe there will be much appetite for consideration of aggressive measurements after recent open heart surgery. I would continue conservative treatment unless there is markedly elevated troponin elevation or evolving ischemic abnormalities on EKG. She seems comfortable, and the chest discomfort resolves with resolution of arrhythmia. After reviewing records and establishing her left ventricle systolic function, will decide about further management. Besides aspirin and apixaban, we will also continue beta blockers and statins. I will continue following the patient in hospital. Copy To: Héctor Becerra
[2017-01-09] VITALS (19 sets, daily range): BP systolic 106–164; BP diastolic 56–94; PULSE 73–95
[2017-01-09] MEDS ORDERED: METOPROLOL 5 MG/5 ML VIAL IV STA ×2 (03:44→07:51)
[2017-01-09] MEDS: LEVOTHYROXINE SODIUM 0.0625 MG 1/2 TAB (62.5MCG) PO SCH (05:58)
[2017-01-09 07:21] LABS: MEAN CORPUSCULAR HEMOGLOBIN 32.8 pg (27.0-33.0); MEAN CORPUSCULAR HGB CONC 34.3 g/dl (32.0-36.5); MEAN CORPUSCULAR VOLUME 95.4 fl (80.0-96.0); RED CELL DISTRIBUTION WIDTH 13.1 % (11.5-14.5); WHITE BLOOD COUNT 11.4 K/mm3 (4.0-10.0)
[2017-01-09 07:31] LABS: ANION GAP 9 MEQ/L (8-16); BLOOD UREA NITROGEN 12 MG/DL (7-18); CALCIUM LEVEL 7.9 MG/DL (8.8-10.2); CARBON DIOXIDE LEVEL 24 MEQ/L (21-32); CHLORIDE LEVEL 101 MEQ/L (98-107); CREATININE FOR GFR 0.63 MG/DL (0.55-1.02); GLOMERULAR FILTRATION RATE > 60.0 (>32); GLUCOSE, FASTING 111 MG/DL (83-110); MAGNESIUM LEVEL 1.9 MG/DL (1.8-2.4); POTASSIUM SERUM 3.8 MEQ/L (3.5-5.1); SODIUM LEVEL 134 MEQ/L (136-145)
[2017-01-09] MEDS: METOPROLOL TART 50 MG TAB PO SCH ×2 (07:34→20:06)
[2017-01-09] MEDS ORDERED: POTASSIUM CHLORIDE 10 MEQ SR TABLET PO ONE (07:45)
[2017-01-09] MEDS ORDERED: AMIODARONE HCL 150 MG in APPROPRIATE DILUENT 1 EA IV STA ×3 (08:23→20:25)
--- NOTE | 2017-01-09 08:28 | ECGEPIP ---
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
--- NOTE | 2017-01-09 08:37 | IPN ---
DATE: 01/09/2017 Mrs. March tells me that she had a relatively good night even though she does complain about inability to sleep. She did have episodes of atrial fibrillation, slight flutter throughout the night and then again this morning. She did have some chest discomfort but she described it as a mild pressure like sensation. Denies dyspnea and denies nausea or vomiting. She is a little tearful this morning. At the time of my evaluation, she was still alternating between atrial fibrillation and sinus rhythm. Blood pressure 125/81. She is afebrile, saturation 95% on 2 liters of oxygen by nasal cannula. Her jugular venous pulse (JVP) is not high. Lungs are reasonably clear to auscultation with good air movement and heart exam revealed regular rhythm without gallop. I do not appreciate any obvious murmur. Abdomen is soft, nontender. There is no peripheral edema. Laboratory batres: Basic metabolic panel this morning remains essentially normal. Cardiac enzymes peaked. Troponin was 0.22. Her CBC hemoglobin 12.8, hematocrit 37 and platelet count 296,000. ASSESSMENT AND PLAN: Mrs. March is an 81-year-old female who underwent coronary bypass surgery in October of this year for three vessel CAD. We did receive records from [facility] in [place] and she received left internal mammary artery (AMAYA) to LAD, saphenous vein graft (SVG) to obtuse marginal and SVG to posterolateral (PL) branch. It looks like her postoperative course was rather bumpy with atrial fibrillation that she developed on day #5 and required administration of amiodarone. She also had pleural effusion and left lower lobe collapse. Nevertheless, after prolonged course, she was able to be discharged home. There is no information on her left ventricular systolic function. Currently, she continues to have paroxysmal atrial fibrillation and during the episodes she is quite tachycardic. Consequently, I am going to give her an intravenous (IV) dose of amiodarone and simultaneously started her on oral dosing. We will use beta-blockers until the amiodarone exerts its effect. At this point, I think it is likely that she will continue to have atrial fibrillation unless antiarrhythmic is on board. She has been anticoagulated with Eliquis in 5 mg twice a day dose, which is a relatively high dose considering her age and small size, but nevertheless according to guidelines is adequate. Echocardiogram is pending today. I do expect that she will stay in the hospital for at least a couple more days.
--- NOTE | 2017-01-09 08:48 | ECGEPIP ---
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
[2017-01-09] MEDS: APIXABAN 5 MG TAB (ELIQUIS) PO SCH ×2 (08:58→21:58)
[2017-01-09] MEDS: ASCORBIC ACID 500 MG TAB PO SCH (08:58)
[2017-01-09] MEDS: AMIODARONE 200 MG TAB (PACERONE) PO SCH ×3 (08:58→20:17)
[2017-01-09] MEDS: FUROSEMIDE 40 MG TAB PO SCH (08:58)
[2017-01-09] MEDS: ASPIRIN 81 MG ENTERIC TAB PO SCH (08:59)
[2017-01-09] MEDS: PRAVASTATIN 20 MG TAB PO SCH (08:59)
[2017-01-09] MEDS: FOLIC ACID 1 MG TAB PO SCH (08:59)
[2017-01-09] MEDS: FAMOTIDINE 20 MG TAB PO SCH ×2 (08:59→21:58)
--- NOTE | 2017-01-09 13:33 | IPN ---
DATE: 01/09/2017 SUBJECTIVE: The patient tells me that she feels uncomfortable. She is once again experiencing shortness of breath and chest heaviness. She tells me that this is happening intermittently overnight as well. She denies fevers, chills, lightheadedness, nausea or vomiting. OBJECTIVE: VITAL SIGNS: Temperature 98.3, pulse 137, respiratory rate 20, blood pressure 133/90, oxygen saturation 96% on 2 liters nasal cannula. GENERAL: She is a frail, elderly female lying flat in bed. She does not appear to be in any acute distress. HEENT: Cranial nerves II through XII are grossly intact. She has moist mucous membranes. CARDIOVASCULAR EXAMINATION: S1 and S2, irregularly irregular, tachycardic. RESPIRATORY EXAMINATION: Clear. ABDOMINAL EXAMINATION: Benign. EXTREMITIES: No clubbing, cyanosis or edema. LABORATORY STUDIES: WBC 11.4, hemoglobin 12.8, platelet count 296. Chemistry panel: Sodium 134 potassium 3.8, chloride 101, bicarbonate 24, BUN 12, creatinine 0.6. Troponin peaked at 0.22, it is 0.08 this morning. ASSESSMENT AND PLAN: This is an 81-year-old female with paroxysmal atrial fibrillation. PROBLEMS: 1. Paroxysmal atrial fibrillation with rapid ventricular response. At this time, I will start the patient on amiodarone 400 mg by mouth three times a day and I will also give her an additional dose of Lopressor IV 5 mg times one. She did receive an additional dose of this overnight already. I will contact Dr. Mendieta who is also following the patient. She may benefit from IV amiodarone. She has been started on anticoagulation. We will make an effort to rate control her. An echocardiogram has been ordered and we await the results. 2. Coronary artery disease. The patient did have some mild Troponin leak. She underwent CABG in October of this year. She did develop the atrial fibrillation postoperatively, which did resolve with amiodarone at that time. We will continue to watch her over the next several days. Patient and family services (PFS) was placed to obtain prior authorization for [employer]. The patient is on an aspirin, statin and a beta-edda. 3. Elevated brain natriuretic peptide (BNP). She does not appear to be grossly overloaded. She is on Lasix 40 mg daily, which she is tolerating well. Will continue to monitor. 4. Gastroesophageal reflux disease. She is on Pepcid. 5. Constipation. She is on Colace. 6. Hypothyroidism. She is continued on Synthroid. Her TSH and free T4 levels are slightly abnormal. Recommend followup with her primary care provider regarding this. 7. Vitamin C deficiency. Continue with her supplementation. 8. Deep venous thrombosis (DVT) prophylaxis. Patient is on Eliquis.
[2017-01-09] MEDS ORDERED: METOPROLOL TART 50 MG TAB PO ONE (20:15)
--- NOTE | 2017-01-09 20:23 | ECGEPIP ---
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
[2017-01-09] MEDS: DOCUSATE SODIUM 100 MG CAP PO SCH (21:58)
[2017-01-10 03:25] VITALS: BP 140/75
[2017-01-10 04:54] LABS: MEAN CORPUSCULAR HEMOGLOBIN 32.3 pg (27.0-33.0); MEAN CORPUSCULAR VOLUME 92.2 fl (80.0-96.0); RED CELL DISTRIBUTION WIDTH 13.3 % (11.5-14.5); WHITE BLOOD COUNT 10.6 K/mm3 (4.0-10.0)
[2017-01-10 05:10] LABS: ANION GAP 7 MEQ/L (8-16); BLOOD UREA NITROGEN 12 MG/DL (7-18); CALCIUM LEVEL 8.3 MG/DL (8.8-10.2); CARBON DIOXIDE LEVEL 28 MEQ/L (21-32); CHLORIDE LEVEL 99 MEQ/L (98-107); CREATININE FOR GFR 0.75 MG/DL (0.55-1.02); GLOMERULAR FILTRATION RATE > 60.0 (>32); GLUCOSE, FASTING 115 MG/DL (83-110); MAGNESIUM LEVEL 1.8 MG/DL (1.8-2.4); POTASSIUM SERUM 3.6 MEQ/L (3.5-5.1); SODIUM LEVEL 134 MEQ/L (136-145)
[2017-01-10] MEDS: LEVOTHYROXINE SODIUM 0.0625 MG 1/2 TAB (62.5MCG) PO SCH (06:19)
[2017-01-10 07:45] VITALS: BP 127/62
--- NOTE | 2017-01-10 08:12 | ECGEPIP ---
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
[2017-01-10] MEDS: METOPROLOL TART 50 MG TAB PO SCH ×2 (08:55→22:24)
[2017-01-10] MEDS: AMIODARONE 200 MG TAB (PACERONE) PO SCH ×3 (08:56→22:23)
[2017-01-10] MEDS: FAMOTIDINE 20 MG TAB PO SCH ×2 (08:57→22:22)
[2017-01-10] MEDS: ASPIRIN 81 MG ENTERIC TAB PO SCH (08:57)
[2017-01-10] MEDS: FUROSEMIDE 40 MG TAB PO SCH (08:58)
[2017-01-10] MEDS: ASCORBIC ACID 500 MG TAB PO SCH (08:58)
[2017-01-10] MEDS: APIXABAN 5 MG TAB (ELIQUIS) PO SCH ×2 (08:59→22:22)
[2017-01-10] MEDS: FOLIC ACID 1 MG TAB PO SCH (08:59)
[2017-01-10] MEDS: PRAVASTATIN 20 MG TAB PO SCH (09:01)
[2017-01-10] MEDS ORDERED: ELIQ5TAB PO (12:19)
[2017-01-10 12:30] VITALS: BP 115/59
[2017-01-10] MEDS ORDERED: POTASSIUM CHLORIDE 10 MEQ SR TABLET PO ONE (12:45)
[2017-01-10] MEDS ORDERED: MAG SULF 1GM/100ML (MAG RUN) 1 GM in APPROPRIATE DILUENT 1 EA IV ONE (13:00)
--- NOTE | 2017-01-10 13:02 | IPN ---
DATE: 01/10/2017 SUBJECTIVE: This morning the patient tells me that she is feeling much better. She denies shortness of breath or chest pains overnight. She denies lightheadedness or dizziness. OBJECTIVE: VITAL SIGNS: Temperature 98.7, pulse 77, respiratory rate 20, blood pressure 127/62, oxygen saturation 92% on room air. GENERAL: She is a frail, elderly female lying in bed flat. She does not appear to be in any acute distress. HEENT: Cranial nerves II-XII are grossly intact. CARDIOVASCULAR EXAM: S1, S2. At the present time, she appears to be regular. RESPIRATORY EXAM: Clear. ABDOMINAL EXAM: Benign. EXTREMITIES: No clubbing, cyanosis or edema. LABORATORY STUDIES: WBC 10.6, hemoglobin 11.9, hematocrit 34, platelet count 296. Chemistry panel: Sodium 134, potassium 3.6, chloride 99, bicarbonate 28, BUN 12, creatinine 0.7. Magnesium 1.8, repleted. No new imaging. ASSESSMENT AND PLAN: This is an 81-year-old female with difficult to control paroxysmal atrial fibrillation. PROBLEMS: 1. Paroxysmal atrial fibrillation with rapid ventricular response. The patient has been alternating in and out from sinus to atrial fibrillation, and when in atrial fibrillation she is at a fairly rapid rate. It does appear to be slowing, however with amiodarone boluses. Dr. Mendieta's help has been greatly appreciated. The patient symptomatically does feel improved. She has been started on anticoagulation. An echocardiogram has been ordered and we are awaiting the results. I suspect that her rate will continue to improve as she becomes more and more therapeutic with amiodarone. We will continue to follow her closely. 2. Coronary artery disease. The patient did have some mild Troponin leak, likely secondary to demand ischemia, she recently underwent CABG in October of this year and has had paroxysmal atrial fibrillation since the postoperative period. A prescription has been sent for prior authorization to be obtained for [employer]. Patient and family services (PFS) help was appreciated. The patient is on a statin and a beta-edda. 3. Gastroesophageal reflux disease. She is on Pepcid. 4. Constipation. She is on Colace. 5. Hypothyroidism. She is on Synthroid. Her thyroid-stimulating hormone (TSH) and free T4 levels are slightly abnormal. Recommend followup with her primary care provider. 6. Vitamin C deficiency. She is on supplementation. 7. Deep venous thrombosis (DVT) prophylaxis. She is on Eliquis.
[2017-01-10 15:45] VITALS: BP 121/59
[2017-01-10] MEDS ORDERED: SLF 3 ML SYR IV PRN (18:30)
[2017-01-10 19:55] VITALS: BP 145/77
[2017-01-10] MEDS: DOCUSATE SODIUM 100 MG CAP PO SCH (22:22)
[2017-01-10] MEDS: SLF 3 ML SYR IV SCH (22:27)
[2017-01-11] VITALS (12 sets, daily range): BP systolic 129–152; BP diastolic 66–93; PULSE 104–146
[2017-01-11 05:25] LABS: MEAN CORPUSCULAR HGB CONC 34.2 g/dl (32.0-36.5); MEAN CORPUSCULAR VOLUME 93.3 fl (80.0-96.0); RED CELL DISTRIBUTION WIDTH 12.9 % (11.5-14.5); WHITE BLOOD COUNT 10.7 K/mm3 (4.0-10.0)
[2017-01-11 05:41] LABS: ANION GAP 9 MEQ/L (8-16); BLOOD UREA NITROGEN 14 MG/DL (7-18); CALCIUM LEVEL 8.1 MG/DL (8.8-10.2); CARBON DIOXIDE LEVEL 23 MEQ/L (21-32); CHLORIDE LEVEL 101 MEQ/L (98-107); CREATININE FOR GFR 0.74 MG/DL (0.55-1.02); GLOMERULAR FILTRATION RATE > 60.0 (>32); GLUCOSE, FASTING 128 MG/DL (83-110); MAGNESIUM LEVEL 2.1 MG/DL (1.8-2.4); POTASSIUM SERUM 3.9 MEQ/L (3.5-5.1); SODIUM LEVEL 133 MEQ/L (136-145)
[2017-01-11] MEDS: LEVOTHYROXINE SODIUM 0.0625 MG 1/2 TAB (62.5MCG) PO SCH (06:00)
[2017-01-11] MEDS: SYNTHROID 75 MCG PO SCH (06:00)
[2017-01-11] MEDS ORDERED: METOPROLOL 5 MG/5 ML VIAL As Ordered ONE (06:09)
[2017-01-11] MEDS: AMIODARONE 200 MG TAB (PACERONE) PO SCH ×3 (06:17→22:33)
[2017-01-11] MEDS ORDERED: METOPROLOL 5 MG/5 ML VIAL IV STA ×2 (06:25→17:36)
--- NOTE | 2017-01-11 06:55 | IPN ---
DATE: 01/11/2017 Mrs. March was doing quite well yesterday, but then unfortunately this morning she had yet another episode of atrial fibrillation with rapid ventricular response. It was associated with sensation of tachycardia and soreness in her chest. Fortunately, she did get a single dose of 5 mg of Lopressor IV and that led to buddhism of sinus rhythm again. She also was supplemented with electrolytes. Once she is back in normal rhythm she feels fine and has no complaints. Review of telemetry does reveal that besides episode of atrial fibrillation she also has episodes of brief runs of nonsustained ventricular tachycardia typically around the time of atrial fibrillation. Vital Signs: Blood pressure 152/77. Heart rate is in the 70s and 80s. She is afebrile. Saturation is 93% on room air. She is alert and oriented and appropriate. I do not appreciate any distress. Her jugular venous pulse (JVP) is not up. Lungs fairly clear to auscultation with good air movement. Heart exam is revealing a regular rhythm. No gallop, rub or murmur is appreciated. Abdomen is soft. There is no peripheral edema. Laboratory-batres, she has normal basic metabolic panel with the exception of slightly low sodium at 133. Her CBC reveals a hemoglobin 12, hematocrit 35 and platelet count 355,000. Her ECG yesterday revealed sinus rhythm with first degree AV block and possible old anterior and inferior wall myocardial infarction. It was not appreciably changed from her prior ECGs and sinus mechanism. Echocardiogram is still pending as there were technical problems with the viewing system. ASSESSMENT AND PLAN: Mrs. March is an 81-year-old female who is approximately two months after three vessel coronary artery bypass grafting and she presented with chest pain. It turns out that she was in atrial fibrillation with rapid ventricular response. There have been multiple episodes during this admission and she was started on amiodarone which is her third day today. I initially started her on 400 twice a day with single loading dose of 150 mg IV, but she continued to have episodes and it was increased to 400 mg three times a day by the hospitalist service yesterday. I am completely in agreement. I will also give her a slightly higher dose of beta edda as we have not seen any episodes of bradycardia, but I do expect that the amiodarone will start exerting more effect and that the dose of beta edda will likely have to be reduced. Otherwise, she is anticoagulated with apixaban and there have not been any bleeding problems. The echo should be available today. I think that we will have to keep monitoring her in the hospital as she keeps having daily and very symptomatic episodes, but I reassured her that the amiodarone will very likely prevent recurrences.
[2017-01-11] MEDS: SLF 3 ML SYR IV SCH ×3 (07:04→21:04)
--- NOTE | 2017-01-11 07:25 | ECGEPIP ---
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
[2017-01-11] MEDS: ASCORBIC ACID 500 MG TAB PO SCH (08:58)
[2017-01-11] MEDS: FOLIC ACID 1 MG TAB PO SCH (08:59)
[2017-01-11] MEDS: APIXABAN 5 MG TAB (ELIQUIS) PO SCH ×2 (08:59→20:57)
[2017-01-11] MEDS: FUROSEMIDE 40 MG TAB PO SCH (08:59)
[2017-01-11] MEDS: FAMOTIDINE 20 MG TAB PO SCH ×2 (08:59→20:55)
[2017-01-11] MEDS: METOPROLOL TART 25 MG TABLET PO SCH ×2 (09:00→20:56)
[2017-01-11] MEDS: ASPIRIN 81 MG ENTERIC TAB PO SCH (09:00)
[2017-01-11] MEDS: PRAVASTATIN 20 MG TAB PO SCH (09:00)
--- NOTE | 2017-01-11 12:01 | IPN ---
DATE: 01/11/2017 SUBJECTIVE: The patient tells me that she can tell exactly when she goes in and out of atrial fibrillation that she feels short of breath and has chest pressure associated with her episodes of atrial fibrillation. At the present time, she can tell that she is not in it and she feels well. OBJECTIVE: VITAL SIGNS: Temperature 98.3, pulse 62, respiratory rate 18, blood pressure 140/75, oxygen saturation 92% on room air. GENERAL: She is a frail, elderly female lying in bed flat. She does not appear to be in any acute distress. HEENT: Cranial nerves II-XII are grossly intact. She has moist mucous membranes. She is mildly pale. No elevation in central venous pressure (CVP). CARDIOVASCULAR EXAM: S1, S2 regular. At the present time, she is not tachycardic. RESPIRATORY EXAM: Clear. ABDOMINAL EXAM: Benign. EXTREMITIES: No clubbing, cyanosis or edema. LABORATORY STUDIES: WBC 10.7, hemoglobin 12.0, platelet count 255. Chemistry panel: Sodium 133, potassium 3.9, chloride 101, bicarbonate 23, BUN 14, creatinine 0.7. No new imaging or microbiology. ASSESSMENT AND PLAN: This is an 81-year-old female with paroxysmal atrial fibrillation. PROBLEMS: 1. Paroxysmal atrial fibrillation. She is on her third day of amiodarone. She did receive boluses. The patient is also having her beta-edda titrated up and she is anticoagulated with Eliquis We are awaiting results of an echocardiogram. I agree with Dr. Mendieta that the amiodarone should help reduce her symptoms and further reduce future episodes. Continue to monitor on telemetry very closely. Prior authorization has been obtained for the Eliquis. 2. Coronary artery disease. She did have some mild Troponin leak, likely secondary to demand ischemia and tachycardia. She recently underwent CABG and has had paroxysmal atrial fibrillation since the postoperative period. She is on beta-edda, aspirin and statin. 3. Gastroesophageal reflux disease. She is on Pepcid. 4. Constipation. She is on Colace. 5. Hypothyroidism. She is on Synthroid and will require further outpatient followup regarding her slightly abnormal thyroid-stimulating hormone (TSH). 6. Vitamin C deficiency. She is on supplementation. 7. Deep venous thrombosis (DVT) prophylaxis. She is on Eliquis. [facility]
[2017-01-11] MEDS ORDERED: POTASSIUM CHLORIDE 10 MEQ SR TABLET PO ONE (16:45)
[2017-01-11] MEDS ORDERED: AMIODARONE HCL 150 MG in APPROPRIATE DILUENT 1 EA IV ONE (18:30)
[2017-01-11] MEDS ORDERED: AMIODARONE HCL 360 MG in APPROPRIATE DILUENT 1 EA IV SCH (19:30)
--- NOTE | 2017-01-11 20:11 | ECHO ---
DATE OF PROCEDURE: 01/09/2017 REFERRING PROVIDER: Dr. Nicole Hutchinson PATIENT LOCATION: Room 4132 REASON FOR ECHOCARDIOGRAM: Chest pain, abnormal EKG. 2D MEASUREMENTS: IVS: 1.2 cm LV: 4.7 cm LVPW: 1.2 cm LA: 3.2 cm Aorta: 3.2 cm IVC: 1.8cm DOPPLER MEASUREMENTS: Peak velocity across the aortic valve: 0.99 m/s Peak velocity across the LVOT: 0.57 m/s Mitral E: 1.0, mitral A: 0.41 with a ratio of 2.5. Maximum tricuspid valve velocity: 3.0 m/s 2D COMMENTS: 1. Normal left ventricular size, wall thickness, but with a moderately depressed global left ventricular systolic function. The anterior wall from the mid to the apex appeared to be markedly hypokinetic. The apex seems to be akinetic. The anterior septum also seemed to be hypokinetic. The estimated global left ventricular systolic function is 30-35%. 2. Normal left atrium. Normal right atrium and left ventricle. 3. The atrial septum appeared to be normal without evidence of defect or shunt. 4. Normal aortic root. 5. No pericardial effusion seen. 6. Minimally calcified aortic valve with normal leaflet excursion. Normal mitral valve, and tricuspid valve. The pulmonic valve and proximal pulmonary artery branches were not well visualized. 7. The inferior vena cava was normal in size, central venous pressure is most likely normal. DOPPLER: Doppler detects trace aortic regurgitation, mild to moderate mitral regurgitation, mild to moderate tricuspid regurgitation and mild pulmonic regurgitation. The calculated pulmonary artery systolic pressure varies between 40 to 50 mmHg. Abnormal relaxation pattern was noted across the mitral valve annulus consistent with a pseudonormal pattern. Left ventricular and diastolic pressure might be elevated. IMPRESSION: 1. Normal left ventricular size with moderately depressed global left ventricular systolic function and regional wall motion abnormalities consistent with underlying coronary artery disease. There were features of left ventricular diastolic dysfunction, age pseudonormal pattern. 2. Aortic valve sclerosis with trace aortic regurgitation, but no aortic stenosis. 3. Mild to moderate mitral regurgitation. 4. Mild tricuspid regurgitation with probably moderate pulmonary hypertension. 5. Mild pulmonic regurgitation.
[2017-01-11] MEDS: DOCUSATE SODIUM 100 MG CAP PO SCH (20:57)
[2017-01-12] VITALS: BP 121/66
[2017-01-12] MEDS: AMIODARONE HCL 360 MG in APPROPRIATE DILUENT 1 EA IV SCH ×2 (02:14→13:57)
[2017-01-12 04:00] VITALS: BP 144/77
[2017-01-12 05:24] LABS: MEAN CORPUSCULAR HEMOGLOBIN 31.1 pg (27.0-33.0); MEAN CORPUSCULAR HGB CONC 33.7 g/dl (32.0-36.5); MEAN CORPUSCULAR VOLUME 92.2 fl (80.0-96.0); RED CELL DISTRIBUTION WIDTH 13.1 % (11.5-14.5)
[2017-01-12 05:36] LABS: ANION GAP 9 MEQ/L (8-16); BLOOD UREA NITROGEN 18 MG/DL (7-18); CALCIUM LEVEL 8.5 MG/DL (8.8-10.2); CARBON DIOXIDE LEVEL 22 MEQ/L (21-32); CHLORIDE LEVEL 100 MEQ/L (98-107); CREATININE FOR GFR 0.76 MG/DL (0.55-1.02); GLOMERULAR FILTRATION RATE > 60.0 (>32); GLUCOSE, FASTING 140 MG/DL (83-110); POTASSIUM SERUM 4.2 MEQ/L (3.5-5.1); SODIUM LEVEL 131 MEQ/L (136-145)
[2017-01-12] MEDS: SYNTHROID 75 MCG PO SCH (06:00)
[2017-01-12] MEDS: SLF 3 ML SYR IV SCH ×3 (06:49→21:18)
[2017-01-12 08:00] VITALS: BP 134/75
[2017-01-12] MEDS: APIXABAN 5 MG TAB (ELIQUIS) PO SCH ×2 (09:01→21:12)
[2017-01-12] MEDS: FUROSEMIDE 40 MG TAB PO SCH (09:02)
[2017-01-12] MEDS: METOPROLOL TART 25 MG TABLET PO SCH ×2 (09:02→21:16)
[2017-01-12] MEDS: FAMOTIDINE 20 MG TAB PO SCH ×2 (09:02→21:12)
[2017-01-12] MEDS: ASCORBIC ACID 500 MG TAB PO SCH (09:03)
[2017-01-12] MEDS: ASPIRIN 81 MG ENTERIC TAB PO SCH (09:03)
[2017-01-12] MEDS: AMIODARONE 200 MG TAB (PACERONE) PO SCH ×3 (09:03→21:12)
[2017-01-12] MEDS: FOLIC ACID 1 MG TAB PO SCH (09:03)
[2017-01-12] MEDS: PRAVASTATIN 20 MG TAB PO SCH (09:03)
[2017-01-12] MEDS ORDERED: FUROSEMIDE 40 MG/4 ML VIAL (J1940) IV ONE (11:30)
[2017-01-12 12:00] VITALS: BP 138/54
--- NOTE | 2017-01-12 12:35 | IPN ---
DATE: 01/12/2017 SUBJECTIVE: The patient tells me that she is feeling better. She tells me that she has not noticed episodes of chest pain or chest pressure since yesterday afternoon. She denies any other complaints at this time. OBJECTIVE: VITAL SIGNS: Temperature 96.7, pulse 66, respiratory rate 18, blood pressure 134/75, oxygen saturation 97% on room air. GENERAL: She is a pleasant, elderly female lying flat in bed. No distress. HEENT: Cranial nerves II-XII are grossly intact. She has moist mucous membranes. No elevation in central venous pressure (CVP). CARDIOVASCULAR EXAM: S1, S2 appears regular at this time. RESPIRATORY EXAM: Clear. ABDOMINAL EXAM: Benign. EXTREMITIES: No clubbing, cyanosis or edema. LABORATORY STUDIES: WBC 9.0, hemoglobin 11.9, hematocrit 35.2, platelet count 343. Chemistry panel: Sodium 131, potassium 4.2, chloride 100, bicarbonate 22, BUN 18, creatinine 0.7. INR is 1.2. Microbiology: None. IMAGING: No new imaging. ASSESSMENT AND PLAN: This is an 81-year-old female with paroxysmal atrial fibrillation. PROBLEMS: 1. Paroxysmal atrial fibrillation. The patient has been on amiodarone for several days. I did discuss the case with Dr. Mendieta yesterday evening and we elected to bolus her with additional 150 mg of IV amiodarone. I have started her on an amiodarone drip as per protocol. We are continuing at this time in an effort to control her episodes of atrial fibrillation and control her rapid ventricular response. She is on Eliquis. 2. Hyponatremia. I feel as though she may have some mild decompensation to her heart failure secondary to her atrial fibrillation with rapid ventricular rate. She does have some elevation in her central venous pressure. I will give her a one time dose of Lasix and continue to monitor. 3. Coronary artery disease. She did have some mild troponin leak, likely secondary to demand ischemia. She recently underwent coronary artery bypass graft (CABG) and has had paroxysmal atrial fibrillation since the postoperative period. She is on an aspirin, statin and a beta-edda. 3. Gastroesophageal reflux disease. She is on Pepcid. 4. Constipation. She is on Colace. 5. Hypothyroidism. She will require outpatient followup regarding this. 6. Deep venous thrombosis (DVT) prophylaxis. She is on Eliquis.
[2017-01-12 16:00] VITALS: BP 119/57
--- NOTE | 2017-01-12 18:28 | IPN ---
DATE: 01/12/2017 CARDIOLOGY PROGRESS NOTE Covering for Dr. Mendieta. SUBJECTIVE The patient claims to have been feeling well with no further chest discomfort, shortness of breath or palpitations. No dizziness, ambulating around in her room. OBJECTIVE: Pleasant, petite elderly lady currently on intravenous (IV) amiodarone infusion. Bright and alert and lying flat without distress. Heart rate 56 beats per minute and regular, blood pressure 124/64 supine, 120/64 sitting with legs dependent, respiratory rate 18 per minute with O2 saturation 96% on room air. She was afebrile. Her weight has been stable at 128 pounds. Appears to be slightly pale but no cyanosis. Normal oral moisture. Trachea midline. Neck veins appeared to be slightly elevated at approximately 4 cm above the sternal angle but has no current dependent edema. Normal carotid upstrokes and volume. Normal chest configuration with well-healed sternotomy incision. Apical impulse was lateral to the midclavicular line fifth intercostal space. Normal S1 and S2 with S4 gallop apical and lower left sternal border systolic murmur grade 2/6. No diastolic murmur. Has few inspiratory rales over the lower left upper lobe anteriorly. Good air entry over both lung garcia with no inspiratory rales posteriorly. Her abdomen is soft. Upper extremity pulses were normal. Pedal pulses were symmetrically decreased. 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 This has been sustained since January 11 at approximately 4 p.m. EKG: Last study January 11, 2017, at 7 a.m. showed sinus rhythm at 75 bpm. Left atrial conduction disturbance. Normal CT interval, has low voltages with QS pattern from V1 through to V5 in keeping with prior anteroapical infarction. Leftward axis. ST/T-wave abnormalities that did not seem to be involved from prior tracing January 10. LABORATORY DATA: Blood work today showed a hemoglobin of 11.9 with normal white blood cell count and platelet count. No obvious bleeding has occurred on her current Eliquis oral anticoagulation. Chemistry today showed a slight hyponatremia of 131, otherwise electrolytes were normal, including magnesium of 2.0, BUN 18 up from 12 on admission. Creatinine is stable at 0.76. Fasting glucose 140. IMPRESSION/PLAN: 1. Paroxysmal atrial fibrillation: Currently has a sustained sinus rhythm on amiodarone and metoprolol. No symptom or sign of embolic phenomenon or hemorrhagic complication on her current Eliquis. She remains with amiodarone loading at 400 mg by mouth three times a day, by mouth at this time. 2. Congestive heart failure (systolic and diastolic/chronic): Currently appears to be compensated and as mentioned, no dyspnea lying flat. Her blood pressure is controlled with her metoprolol and furosemide therapy alone. I will continue to monitor her chemistry. 3. Coronary artery disease ([place] vessel)/post anteroapical myocardial infarction/post coronary artery bypass graft (CABG): At this point with her sustained sinus mechanism, she has been free of any further chest discomfort. Remains on combination protective metoprolol, low-dose aspirin, Eliquis, and pravastatin. 4. Mitral valve disorder (nonrheumatic)/insufficiency: Recent echocardiographic study here in the hospital showed degenerative changes of both her mitral and aortic valvular apparatus with mild to moderate mitral insufficiency. No symptoms or signs of endocarditis. I will continue to follow her with you in Dr. Mendieta's absence. No medication change was deemed necessary at this time.
[2017-01-12 20:00] VITALS: BP 125/64
[2017-01-12] MEDS: DOCUSATE SODIUM 100 MG CAP PO SCH (21:16)
[2017-01-13] VITALS: BP 142/74
[2017-01-13 04:00] VITALS: BP 156/74
[2017-01-13 05:29] LABS: MEAN CORPUSCULAR HEMOGLOBIN 32.3 pg (27.0-33.0); MEAN CORPUSCULAR HGB CONC 34.4 g/dl (32.0-36.5); MEAN CORPUSCULAR VOLUME 93.9 fl (80.0-96.0); WHITE BLOOD COUNT 9.4 K/mm3 (4.0-10.0)
[2017-01-13] MEDS: SYNTHROID 75 MCG PO SCH (05:37)
[2017-01-13] MEDS: SLF 3 ML SYR IV SCH ×3 (05:40→21:27)
[2017-01-13 05:50] LABS: ANION GAP 11 MEQ/L (8-16); BLOOD UREA NITROGEN 18 MG/DL (7-18); CALCIUM LEVEL 8.4 MG/DL (8.8-10.2); CARBON DIOXIDE LEVEL 21 MEQ/L (21-32); CHLORIDE LEVEL 99 MEQ/L (98-107); CREATININE FOR GFR 0.82 MG/DL (0.55-1.02); GLOMERULAR FILTRATION RATE > 60.0 (>32); GLUCOSE, FASTING 125 MG/DL (83-110); POTASSIUM SERUM 3.5 MEQ/L (3.5-5.1); SODIUM LEVEL 131 MEQ/L (136-145)
[2017-01-13 08:00] VITALS: BP 149/78
[2017-01-13] MEDS: PRAVASTATIN 20 MG TAB PO SCH (09:24)
[2017-01-13] MEDS: ASPIRIN 81 MG ENTERIC TAB PO SCH (09:25)
[2017-01-13] MEDS: FOLIC ACID 1 MG TAB PO SCH (09:25)
[2017-01-13] MEDS: ASCORBIC ACID 500 MG TAB PO SCH (09:25)
[2017-01-13] MEDS: AMIODARONE 200 MG TAB (PACERONE) PO SCH ×3 (09:25→21:20)
[2017-01-13] MEDS: FUROSEMIDE 40 MG TAB PO SCH (09:25)
[2017-01-13] MEDS: APIXABAN 5 MG TAB (ELIQUIS) PO SCH ×2 (09:25→21:20)
[2017-01-13] MEDS: METOPROLOL TART 25 MG TABLET PO SCH ×2 (09:26→21:24)
[2017-01-13] MEDS: FAMOTIDINE 20 MG TAB PO SCH ×2 (09:26→21:20)
[2017-01-13 12:00] VITALS: BP 129/67
--- NOTE | 2017-01-13 12:44 | IPN ---
DATE: 01/13/2017 SUBJECTIVE: The patient tells me that she feels great. She has had no further episodes of chest pain or palpitations. She has no complaints at the present time. OBJECTIVE: VITAL SIGNS: Temperature 97.4, pulse 71, respiratory rate 19, blood pressure 149/70, oxygen saturation 97% on room air. GENERAL: She is a pleasant, elderly female lying flat in bed. No distress. HEENT: Cranial nerves II-XII are grossly intact. CARDIOVASCULAR EXAM: S1, S2 regular. RESPIRATORY EXAM: Clear. ABDOMINAL EXAM: Benign. EXTREMITIES: No clubbing, cyanosis or edema. LABORATORY STUDIES: WBC 9.4, hemoglobin 11.8, platelet count 369. Chemistry panel: Sodium 131, potassium 3.5, chloride 99, bicarbonate 21, BUN 18, creatinine 0.8. ASSESSMENT AND PLAN: This is an 81-year-old female with paroxysmal atrial fibrillation. PROBLEMS: 1. Paroxysmal atrial fibrillation. The patient did receive amiodarone for several days, including bolus and drip as per protocol. Her atrial fibrillation appears to be well controlled at this time with no further episodes of heart rate greater than 100 in the last 24 to 48 hours and she is symptom free. She is anticoagulated with Eliquis and prior authorization has been obtained. I did discuss the case with Dr. Anders, who recommended continuing amiodarone 400 mg three times a day for today. He stated to me that he specifically likes to watch patients who have received high doses of amiodarone for not four days but five days while inpatient prior to discharge and as such, the patient will remain in the hospital an additional evening and will potentially be able to be discharged home tomorrow on amiodarone 400 mg by mouth twice a day. I did have an opportunity to speak with the patient and her son and outlined the plan with them and answered all questions to their satisfaction. 2. Hyponatremia, stable. The patient does not appear to be fluid overloaded at the present time. We could consider holding her diuretic. 3. Coronary artery disease, she had a mild troponin leak secondary to demand ischemia at the time of admission when she was in rapid ventricular response. She recently underwent coronary artery bypass grafting. She is on aspirin, statin and a beta edda. 4. Gastroesophageal reflux disease. She is on Pepcid. 4. Constipation. She is on Colace. 5. Hypothyroidism. She will require outpatient followup regarding her slightly abnormal TSH value. 6. Deep venous thrombosis (DVT) prophylaxis. She is on Eliquis. DISPOSITION: I suspect that the patient can be discharged home tomorrow.
--- NOTE | 2017-01-13 14:33 | IPN ---
CARDIOLOGY PROGRESS NOTE DATE: 01/13/2017 COVERING FOR: Dr. Mendieta SUBJECTIVE: Has remained free of any chest discomfort, shortness of breath, palpitations or dizziness ambulating around in her room. Has not been out in the [place] at this point. Appears to be tolerating her medications she believes this time. OBJECTIVE: Pleasant, petite, elderly lady, somewhat emotional labile. Heart rate 64 beats per minute and regular, blood pressure 128/68 supine, 130/66 sitting with legs dependent, respiratory rate 18 per minute, oxygen saturation 97% on room air. Afebrile. Weight slightly higher than yesterday at 132 pounds, Body Mass Index (BMI) 27.6. No current pallor or cyanosis. Normal oral moisture. Trachea midline. Neck veins approximately 3 cm above the sternal angle. Normal carotid upstrokes and volume. Normal chest configuration with well-healed sternotomy incision. Apical impulse lateral to mid clavicular line, fifth costal space. Somewhat soft S1. Normal S2 with S4 gallop. Soft systolic ejection murmur left sternal border. No diastolic murmur. Improved air entry over both lung garcia at this time with no inspiratory rales. No expiratory rhonchi. Her abdomen is soft. Upper extremity pulses were symmetrical and normal. No dependent edema but slightly reduced pedal pulses. 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 LABORATORY DATA: Blood work today showed a stable hemoglobin of 11.8. Normal white blood cell count and platelet count. Her serum sodium remains stable and 131, potassium has slightly decreased to 3.5, magnesium level was normal at 2.0. Other electrolytes were normal. BUN 18, creatinine 0.8, fasting glucose 125. IMPRESSION AND PLAN: 1. Paroxysmal atrial fibrillation: Fortunately, continues to tolerate her loading dose of amiodarone and has remained in sinus mechanism. As discussed with her primary physician, I believe it would be prudent to monitor her for at least 5 days on high dose amiodarone and prior to her discharge home to reduce this dosage to perhaps 400 mg twice a day to complete a total of 2 weeks loading prior to reducing the dosage in light of her fairly impressive rapid response to the arrhythmia. Currently on Eliquis oral anticoagulation without evidence of embolic phenomenon or hemorrhagic complication. 2. Congestive heart failure (systolic and diastolic/chronic). Appears compensated at this time with no dyspnea. Her blood pressure is controlled without orthostatic drop. In light of her soft potassium, I have ordered a potassium supplement orally today and have added low-dose spirolactone to her metoprolol and furosemide. 3. 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 We will have her increase her ambulation prior to tentative discharge in the next few days. 4. Mitral valve disorder (automatic)/mitral insufficiency: No auscultatory change from yesterday. Remains free of symptom or sign of endocarditis. Dr. Mendieta will be resuming her primary cardiology care upon his return tomorrow morning.
[2017-01-13] MEDS: SPIRONOLACTONE 12.5MG PER 1/2 TABLET PO SCH (14:48)
[2017-01-13] MEDS ORDERED: POTASSIUM CHLORIDE 10 MEQ SR TABLET PO ONE (15:00)
[2017-01-13 16:00] VITALS: BP 142/79
[2017-01-13 20:00] VITALS: BP 132/60
[2017-01-13] MEDS: DOCUSATE SODIUM 100 MG CAP PO SCH (21:20)
[2017-01-14] VITALS (7 sets, daily range): BP systolic 117–142; BP diastolic 64–78
[2017-01-14 05:15] LABS: MEAN CORPUSCULAR HEMOGLOBIN 31.7 pg (27.0-33.0); MEAN CORPUSCULAR HGB CONC 34.2 g/dl (32.0-36.5); MEAN CORPUSCULAR VOLUME 92.9 fl (80.0-96.0); RED CELL DISTRIBUTION WIDTH 13.3 % (11.5-14.5); WHITE BLOOD COUNT 8.8 K/mm3 (4.0-10.0)
[2017-01-14 05:27] LABS: CALCIUM LEVEL 8.4 MG/DL (8.8-10.2); CREATININE FOR GFR 0.99 MG/DL (0.55-1.02); GLOMERULAR FILTRATION RATE 57.2 (>32); MAGNESIUM LEVEL 1.9 MG/DL (1.8-2.4); POTASSIUM SERUM 3.8 MEQ/L (3.5-5.1)
[2017-01-14] MEDS: SLF 3 ML SYR IV SCH ×3 (06:57→23:54)
[2017-01-14] MEDS: SYNTHROID 75 MCG PO SCH (07:06)
--- NOTE | 2017-01-14 07:58 | IPN ---
DATE: 01/14/2017 Mrs. March had a good weekend after intravenous (IV) amiodarone infusion was started on Saturday afternoon. She has not had any relapse of atrial fibrillation and she denies any recurrence of chest discomfort. She has no specific complaints this morning. Blood pressure 127/68, heart rate is in 60s and sometimes high 50s. Saturation 93% on room air. Her jugular venous pulse (JVP) is not up. Lungs are clear to auscultation. She is afebrile. Weight is documented 57.2 kg. Lungs are clear to auscultation. Good air movement. No wheezing. Heart exam regular rhythm. No gallop or rub, and very faint murmur is appreciated. Abdomen is soft, nontender. There is no peripheral edema. Laboratory batres: Her CBC is normal. Her basic metabolic panel is normal but for very marginal hyponatremia at 133 and glucose 123. ASSESSMENT AND PLAN: Mrs. March is an 81-year-old lady who is approximately 2 months after coronary artery bypass surgery and came with atrial fibrillation with rapid ventricular response and associated chest discomfort. She had a marginal troponin elevation. She has approximately moderate left ventricular systolic dysfunction with estimated ejection fraction (EF) of around 35%. It was challenging to accomplish jew of sinus mechanism and maintaining it, and eventually because of frequent relapses including brief episodes of nonsustained ventricular tachycardia we had to start IV amiodarone loading, but as of lately it looks like she has been good and if there should not be any relapse of atrial fibrillation of nonsustained VT overnight, I think she can be discharged home tomorrow. Because of the LV dysfunction and normal renal function, I am going to introduce small dose of DEMI inhibitor to her medication regimen.
[2017-01-14] MEDS: PRAVASTATIN 20 MG TAB PO SCH (09:08)
[2017-01-14] MEDS: SPIRONOLACTONE 12.5MG PER 1/2 TABLET PO SCH (09:08)
[2017-01-14] MEDS: AMIODARONE 200 MG TAB (PACERONE) PO SCH ×3 (09:09→20:16)
[2017-01-14] MEDS: FUROSEMIDE 40 MG TAB PO SCH (09:09)
[2017-01-14] MEDS: METOPROLOL TART 25 MG TABLET PO SCH ×2 (09:09→20:16)
[2017-01-14] MEDS: FAMOTIDINE 20 MG TAB PO SCH ×2 (09:10→20:17)
[2017-01-14] MEDS: APIXABAN 5 MG TAB (ELIQUIS) PO SCH ×2 (09:10→20:17)
[2017-01-14] MEDS: FOLIC ACID 1 MG TAB PO SCH (09:10)
[2017-01-14] MEDS: LISINOPRIL 5 MG TAB PO SCH (09:10)
[2017-01-14] MEDS: ASCORBIC ACID 500 MG TAB PO SCH (09:10)
[2017-01-14] MEDS: ASPIRIN 81 MG ENTERIC TAB PO SCH (09:10)
--- NOTE | 2017-01-14 10:03 | IPN ---
DATE: 01/14/2017 SUBJECTIVE: The patient reports he continues to feel well. She has not had any episodes of chest pressure, shortness of breath for several days now. No complains at this time. OBJECTIVE: Vital signs: Temperature 96.6, pulse 64, respiratory rate 20, blood pressure 142/78, oxygen sat 93% on room air. General: She is a frail, elderly, female lying in bed, she is in no distress. HEENT: Cranial nerves II through XII grossly intact. She has moist mucous membranes and elevation of central venous pressure (CVP). Cardiovascular exam: S1, S2. Irregularly irregular but not tachycardic. Respiratory exam: Clear. Abdominal exam: Benign. Extremities: No clubbing, cyanosis or edema. LABORATORY STUDIES: WBC 8.8, hemoglobin 12.5, platelet count 424. Chemistry panel: Sodium 133, potassium 3.8, chloride 100, bicarbonate 23, BUN 19, creatinine 0.9. No new imaging. ASSESSMENT AND PLAN: This is an 81-year-old female with paroxysmal atrial fibrillation. 1. Paroxysmal atrial fibrillation, has been fairly new onset since her recent coronary artery bypass graft (CABG). She was difficult to control requiring amiodarone boluses and drips. At the present time, she is on amiodarone and she is rate controlled. She is also on metoprolol. She is anticoagulated with Eliquis. Prior authorization has already been obtained. 2. Coronary artery disease with LV dysfunction. Dr. Mendieta's help is once again greatly appreciated. She is on aspirin, beta edda, statin. 3. Systolic dysfunction, she is on Lasix, lisinopril and aldactone. She is status post recent CABG. 4. Hyponatremia possibly related to some fluid overload. She did receive an additional dose of Lasix. It does appear to be resolving. 5. Gastroesophageal reflux disease. She is on Pepcid. 6. Constipation. She is on Colace. 7. Hypothyroidism, followup with outpatient provider. DISPOSITION: Dr. Mendieta would like to keep the patient in the hospital for an additional evening and monitor her closely. Patient is agreeable for this. I anticipate she will likely be able to be discharged home tomorrow with some further small medication adjustments.
[2017-01-14] MEDS: DOCUSATE SODIUM 100 MG CAP PO SCH (20:17)
[2017-01-15 00:53] VITALS: BP 139/69
[2017-01-15 05:09] VITALS: BP 134/76
[2017-01-15] MEDS: SYNTHROID 75 MCG PO SCH (05:12)
[2017-01-15] MEDS: SLF 3 ML SYR IV SCH ×2 (05:13→13:43)
--- NOTE | 2017-01-15 07:19 | IPN ---
DATE: 01/15/2017 Ms. March is a little tearful this morning. She says that she slept well, but it was not like her bed, but she denies any chest pain or shortness of breath. Vital Signs: This morning, blood pressure is 134/76. Heart rate mostly in 50s and 60s. She is afebrile. Saturation 94% on room air. Her weight is 58 kg. Fluid balance yesterday was approximately equal. She alert and oriented times two. She did not know the date. Her jugular venous pulse (JVP) is normal. Lungs are clear bilaterally. Heart Exam: Regular rhythm. No gallop. Abdomen is soft, nontender. No peripheral edema. Neurologically, she is grossly intact. Laboratory-batres, CBC is normal with WBC count 8.8, hemoglobin 12.5, hematocrit 36 and platelet count 424,000. Basic metabolic panel is also normal, but for low sodium at 133 and glucose 123. Review of telemetry monitoring did not indicate any relapse of atrial fibrillation or nonsustained ventricular tachycardia since Saturday. ASSESSMENT/PLAN: Mrs. aMrch is an 81-year-old female who underwent three-vessel coronary artery bypass grafting 2 months ago, but now presented with atrial fibrillation with rapid ventricular response (RVR) and associated chest discomfort. Unfortunately, she was very difficult to control and eventually we had to use IV amiodarone loading in order to suppress both nonsustained VT and atrial fibrillation, but at this point it looks like the goal has been accomplished. I think at this point she can be discharged home. I would leave her medications unchanged with the exception of reducing the dose of amiodarone to 400 mg twice a day and probably also metoprolol to just 50 mg twice a day because she is starting to become bradycardic. Tentatively, I plan to see her in followup in 1-2 weeks. As far as coronary artery disease is concerned, she did have chest discomfort with fast heart rates but considering recent surgery and her DO NOT INTUBATE/DO NOT RESUSCITATE (DNI/DNR) status, I do not believe with that we should push this further. She has not had any problems and the arrhythmia has been controlled. As far as the anticoagulation is concerned, she has been on baby aspirin and apixaban. So far, there have not been bleeding complications and hopefully that will remain as such.
[2017-01-15 08:00] VITALS: BP 159/73
[2017-01-15] MEDS: ASPIRIN 81 MG ENTERIC TAB PO SCH (08:54)
[2017-01-15] MEDS: METOPROLOL TART 25 MG TABLET PO SCH (08:54)
[2017-01-15] MEDS: ASCORBIC ACID 500 MG TAB PO SCH (08:55)
[2017-01-15] MEDS: AMIODARONE 200 MG TAB (PACERONE) PO SCH ×2 (08:55→15:57)
[2017-01-15] MEDS: SPIRONOLACTONE 12.5MG PER 1/2 TABLET PO SCH (08:55)
[2017-01-15 08:56] VITALS: BP 159/73
[2017-01-15] MEDS: FUROSEMIDE 40 MG TAB PO SCH (08:56)
[2017-01-15] MEDS: FOLIC ACID 1 MG TAB PO SCH (08:56)
[2017-01-15] MEDS: LISINOPRIL 5 MG TAB PO SCH (08:56)
[2017-01-15] MEDS: PRAVASTATIN 20 MG TAB PO SCH (08:56)
[2017-01-15] MEDS: FAMOTIDINE 20 MG TAB PO SCH (08:57)
[2017-01-15] MEDS: APIXABAN 5 MG TAB (ELIQUIS) PO SCH (08:57)
[2017-01-15] MEDS ORDERED: SPIR25TA2 PO (09:21)
[2017-01-15] MEDS ORDERED: LISI-542 PO (09:21)
[2017-01-15] MEDS ORDERED: AMIO20TA PO (09:21)
--- NOTE | 2017-01-15 12:36 | DSES ---
DATE OF ADMISSION: 01/15/2017 DATE OF DISCHARGE: PRIMARY CARE PROVIDER: Héctor Dodge Jr., MD CONSULTANTS: Fransisco Mendieta MD PROCEDURES: None. COMPLICATIONS: None. SPECIAL STUDIES: Echocardiogram done on 01/07/2017 demonstrates left ventricular ejection fraction of 30% to 35%, normal left ventricular size, wall thickness, but moderately depressed global left ventricular systolic function. The anterior wall from the mid to the apex appears to be markedly hypokinetic. [place] seems to akinetic. Anterior septum also seemed to be hyperkinetic. She does have normal left atrium, normal right atrium, and left ventricle. The atrial septum appears to be normal without evidence of this defect or shunt. Normal aortic root. No pericardial effusion seen. Minimal calcified aortic valve and normal leaflet excursion. Normal mitral valve, tricuspid valve. The pulmonic valve and proximal pulmonary artery branches were not well visualized. Inferior vena cava was normal in size. Central venous pressure is most likely normal. ADMISSION/DISCHARGE DIAGNOSES: 1. Paroxysmal atrial fibrillation, rate controlled. 2. Coronary artery disease with left ventricular dysfunction. 3. Systolic dysfunction. 4. Hyponatremia likely secondary to volume overload, resolved. 5. Gastroesophageal reflux disease (GERD), stable. 6. Constipation. 7. Hypothyroidism. BRIEF HOSPITAL COUR[employer] Miss March is a frail 81-year-old female presents emergency department on 01/08/2017 with increasing shortness of breath, dyspnea on exertion, and sharp midchest pain with radiation, felt dizzy, and noted to have a rapid heart rate. While in the emergency department, she was found to be in atrial fibrillation with rapid ventricular response (RVR). One dose of metoprolol was given, which did convert her back spontaneously to sinus. However, she did continue to have some further episodes of atrial fibrillation requiring some medical adjustments by Dr. Mendieta. Please refer to his consultation note, as well as progress notes. Her brain natriuretic peptide (BNP) at the time was noted be 1300. Her troponin did spike at 0.22, however, did return to normal. This likely was related to demand ischemia; and on day of discharge, she was symptom free and did do well with physical therapy and felt to be appropriate for home discharge. For further information regarding intake, physical laboratories, diagnostics, please refer the history and physical (H and P) by Dr. Nicole Hutchinson DO. Physical examination today, temperature is 96.7, pulse 60, respiratory rate is 20, blood pressure (BP) is 134/76, SpO2 is 97% on room air. General: The patient appears to be in no acute distress. She is alert, pleasant, oriented. HEENT: Unremarkable. Lungs: Clear. Heart: Regular rate and rhythm. Abdomen: Soft. Extremities: No edema. No calf tenderness. LABORATORIES: White count is 8.8, hemoglobin 12.5, platelets 424. Sodium 134, potassium 3.8, chloride 101, bicarbonate 24, anion gap 9, BUN is 12, creatinine 0.63, glucose 111. Repeat troponin this morning 0.06. She did have a chest x-ray on admission, which showed no acute cardiopulmonary process. DISPOSITION: The patient will be discharged to home. DISCHARGE CONDITION: Is good. DISCHARGE MEDICATIONS: - amiodarone 400 mg twice a day - Eliquis 5 mg twice a day - lisinopril 5 mg daily - spironolactone 12.5 mg daily - Tylenol 650 mg every 6 hours - vitamin C 500 mg daily - aspirin 81 mg daily - docusate 100 mg nightly - folic acid 1 mg daily - furosemide 40 mg daily - Synthroid 75 mcg daily - lisinopril 10 mg daily - metoprolol tartrate 50 mg twice a day - sublingual nitroglycerin 0.4 mg every 5 hours as needed chest pain - pravastatin 80 mg daily - ranitidine 150 mg twice a day - Viactiv 500/500/40 one tablet daily DISCHARGE INSTRUCTIONS: Discharge to home. Activity as tolerated. Regular diet. Keep followup appointment with Dr. Mendieta in a week and Dr. Dodge in 1-2 weeks. Seek medical attention should symptoms worsen or progress.
== END 2017-01-15 16:43 | disposition home health service (06) | DRG 309 ==
LOC: M ED 19:04 → M ED INP 01-08 00:14 → UNDOADMIN 01-08 00:14 → M MS4PR 01-08 19:02 → M ED INP 01-08 19:02 → M MS4PR 01-09 22:15 → M PCU 01-09 22:15 → UNDODISIN 01-15 16:43
PROVIDERS: ADMIT Internal Medicine; ATTEND Internal Medicine
DX: I48.0 Paroxysmal atrial fibrillation (principal); E87.1 Hypo-osmolality and hyponatremia; I50.22 Chronic systolic (congestive) heart failure; I11.0 Hypertensive heart disease with heart failure; I47.2 Ventricular tachycardia; I25.10 Atherosclerotic heart disease of native coronary artery without angina pectoris; K21.9 Gastro-esophageal reflux disease without esophagitis; K59.00 Constipation, unspecified; Z66 Do not resuscitate; E03.9 Hypothyroidism, unspecified; Z79.82 Long term (current) use of aspirin; Z79.899 Other long term (current) drug therapy; I25.2 Old myocardial infarction; Z95.5 Presence of coronary angioplasty implant and graft; Z90.710 Acquired absence of both cervix and uterus

== ENCOUNTER → 2018-08-28 | Outpatient (REF) | payer MEDICARE, MEDICAID ==
[~2018-08-28] MED LIST changes: +AMIO200T PO; -AMLO5TAB2 PO; +AMLO5TAB6 PO; +ASPI1TAB PO; +ELIQ5TAB PO; +FOLI1TAB11 PO; +FURO40TA2 PO; +LEVO75TA4 PO; +LISI-542 PO; +LISI10TA4 PO; +METO50TA7 PO; +NITR0.4S14 SL; +SPIR-10 PO; +STOO100C PO; +TYLE325T5 PO; +VITA500T PO
[2018-08-28 12:30] LABS: PERCENT SATURATION 25.5 % (13.2-45.0)
== END ==
LOC: M LAB REF 11:47
PROVIDERS: ATTEND Internal Medicine
DX: D50.9 Iron deficiency anemia, unspecified (principal)

== ENCOUNTER → 2020-04-05 | Outpatient (REF) | payer MEDICARE, MEDICAID ==
[~2020-04-05] MED LIST changes: -AMIO200T PO; +AMIO200T3 PO; +AMLO1TAB24 PO; -AMLO5TAB6 PO; -ASPI1TAB PO; +ASPI81TA26 PO; +MM S100C PO; -STOO100C PO; -VIAC8.5C PO; +VIACTIV 500-5001 CHW PO; +VITA-243 PO; -VITA500T PO
== END ==
LOC: M LAB REF 06:20
PROVIDERS: ATTEND Internal Medicine
DX: M10.9 Gout, unspecified (principal)

== ENCOUNTER → 2020-05-18 | Outpatient (REF) | payer MEDICARE, MEDICAID | LOC: M LAB REF 16:43 | PROVIDERS: ATTEND Internal Medicine | DX: M10.9 Gout, unspecified (principal) ==

== ENCOUNTER → 2020-08-30 | Outpatient (REF) | payer MEDICARE, MEDICAID | LOC: M LAB REF 12:06 | PROVIDERS: ATTEND Internal Medicine | DX: M10.9 Gout, unspecified (principal) ==

== ENCOUNTER → 2020-12-20 | Outpatient (REF) | payer MEDICARE, MEDICAID ==
[~2020-12-20] MED LIST changes: +HYDR-3490 PO; -HYDR25TAB PO; -LISI-542 PO; +LISI-898 PO; +LISI10TA22 PO; -LISI10TA4 PO
[2020-12-20 17:43] LABS: FOLATE 15.6 NG/ML
== END ==
LOC: M LAB REF 12:02
PROVIDERS: ATTEND Internal Medicine
DX: R41.81 Age-related cognitive decline (principal); M10.071 Idiopathic gout, right ankle and foot

== ENCOUNTER → 2021-04-26 | Outpatient (REF) | payer MEDICARE, MEDICAID ==
[~2021-04-26] MED LIST changes: -AMIO200T3 PO; +AMIO200T49 PO; -LISI-898 PO; +LISI5TAB11 PO
== END ==
LOC: M LAB REF 11:07
PROVIDERS: ATTEND Internal Medicine
DX: E79.0 Hyperuricemia without signs of inflammatory arthritis and tophaceous disease (principal)

== ENCOUNTER → 2022-01-10 | Outpatient (REF) | payer MEDICARE, MEDICAID | LOC: M LAB REF 16:47 | PROVIDERS: ATTEND Internal Medicine | DX: E79.0 Hyperuricemia without signs of inflammatory arthritis and tophaceous disease (principal) ==

== ENCOUNTER → 2022-07-24 | Outpatient (REF) | payer MEDICARE, MEDICAID | LOC: M LAB REF 13:31 | PROVIDERS: ATTEND Internal Medicine | DX: E79.0 Hyperuricemia without signs of inflammatory arthritis and tophaceous disease (principal) ==

== ENCOUNTER → 2023-09-17 | Outpatient (REF) | payer MEDICARE, MEDICAID | LOC: M LAB REF 17:40 | PROVIDERS: ATTEND Internal Medicine | DX: I13.0 Hypertensive heart and chronic kidney disease with heart failure and stage 1 through stage 4 chronic kidney disease, or unspecified chronic kidney disease (principal); N18.9 Chronic kidney disease, unspecified; I50.9 Heart failure, unspecified ==

== ENCOUNTER → 2024-03-17 | Outpatient (REF) | payer MEDICARE, MEDICAID | LOC: M LAB REF 16:44 | PROVIDERS: ATTEND Internal Medicine | DX: E79.0 Hyperuricemia without signs of inflammatory arthritis and tophaceous disease (principal) ==

== ENCOUNTER → 2024-09-01 | Outpatient (REF) | payer OTHER, MEDICAID | LOC: M LAB REF 12:14 | PROVIDERS: ATTEND Internal Medicine | DX: E79.0 Hyperuricemia without signs of inflammatory arthritis and tophaceous disease (principal) ==